=== PATIENT | female | born 1940 | race Caucasian/White ===

== ENCOUNTER → 2016-07-23 | Day surgery (SDC) | payer MEDICARE ==
[~2016-07-23] MED LIST: ASPI81TA81 PO; BETH10TA2 PO; BUPIVACAINE HCL PF 0.5% 30 ML VIAL ONE; D 101000 PO; ESTR1TAB PO; LEXA20TA PO; LORA-392 PO; LOVA40TA PO; PRIL20TA2 PO; PROP60 PO; PROPOFOL 200 MG/20 ML AMP IV ONE; RANI150C PO; TRAM50TA PO; TRIAMCINOLONE ACETONIDE 40 MG/ML VIAL I-ARTICULR ONE; VITA500T49 PO
--- NOTE | 2016-07-24 23:05 | M6 ---
cc: ROSARIO SANDERS M.D. DATE: 07/23/2016 DATE OF : 1940 PROCEDURE Fluoroscopically guided injection right cervical facet joints (right C2-3, C3-4, C4-5 and C5-6 facet joints). History and physical was completed and signed. Consent was signed. Procedure site was marked. Medications were listed and reconciled. Pain score was recorded. Allergies were noted. Time out was taken. Fluoroscopy time was recorded where applicable. Sedation was administered or directed by Dr. Sanders. The patient was given oxygen. The patient was monitored by a registered nurse. Total procedure time was greater than 15 minutes. PROCEDURE NOTE: IV was started, blood pressure cuff, pulse oximeter and EKG were applied. The patient was placed in the prone position on a Jonathan table sedated with small amounts of propofol titrated to effect. Vital signs were monitored and remained stable throughout the procedure. The cervical area was prepped with alcohol and 10% Betadine solution and draped with sterile drapes. Fluoroscopy was used to visualize the right cervical facet joints at C2-3, C3-4, C4-5 and C5-6. Separate sterile 3-1/2 inch 25-gauge spinal needles were advanced into these joints under fluoroscopic guidance. At each location the patient was given 1 mL of Marcaine 0.5% which contained 10 mg of Kenalog. Following the procedure the patient was taken to the recovery room with stable vital signs neurologically intact. She will be evaluated immediately and with followup to determine if she has a subjective decrease in her usual pain and a corresponding objective increase in her functional capabilities. W. MD PAUL Perez/ALEXANDRE /8:21 AM /10:58 PM
== END | disposition home or self-care (01) ==
LOC: PHSDC 06:32
PROVIDERS: ATTEND Pain Medicine Interventional Pain Medicine
DX: M54.12 Radiculopathy, cervical region (principal)
CPT/HCPCS: 64490; 64491; 64492; 99152; J3301

== ENCOUNTER 2016-08-27 09:46 | Day surgery (SDC) | payer MEDICARE ==
[~2016-08-27] VITALS: Ht 170.2 cm; Wt 75.0 kg
[2016-08-27] VITALS (7 sets, daily range): BP systolic 130–141; BP diastolic 56–71; PULSE 68–76; RESP 15–20; TEMP 97.8–98.2; O2SAT 91–96
[~2016-08-27 09:46] MED LIST changes: -BUPIVACAINE HCL PF 0.5% 30 ML VIAL ONE; -PROPOFOL 200 MG/20 ML AMP IV ONE; -TRIAMCINOLONE ACETONIDE 40 MG/ML VIAL I-ARTICULR ONE
[2016-08-27] MEDS ORDERED: SODIUM CHLOR 0.9% 1000 ML IV SCH (10:00)
[2016-08-27] MEDS ORDERED: ONDANSETRON HCL 4 MG/2 ML VIAL IV PUSH ONE (12:45)
[2016-08-27] MEDS ORDERED: LORazepam 2 MG/ML VIAL ONE (12:48)
[2016-08-27] MEDS ORDERED: fentaNYL CITRATE 250 MCG/5 ML AMP ONE (12:48)
[2016-08-27] MEDS ORDERED: LIDOCAINE 1%/EPINEPHrine 1:100,000 SOLN 20 ML VIAL ONE (12:50)
[2016-08-27] MEDS ORDERED: MORPHINE SULFATE 8 MG/ML INJ IV PUSH ONE (13:00)
--- NOTE | 2016-08-27 13:33 | PD.RAD ---
Post Procedure Progress Note Pre Procedure Diagnosis: (1) Mass of sacrum Post Procedure Diagnosis: (1) Mass of sacrum Procedure Date: Aug 27, 2016 Supervising Radiologist: Davon Avitia Estimated blood loss: 2cc Anesthesia: Local, Conscious Sedation Plan of Activity Patient to Unit: ROPU Patient Condition: Good Additional Comments: Successful CT guided biopsy of the right sacral mass. Full dictated report to follow See PACS Report for procedural detail/treatment Davon Avitia MD Aug 27, 2016 13:33
--- NOTE | 2016-08-28 10:55 | RADRPT ---
EXAM DATE/TIME: 08/27/2016 13:14 [facility] COMPARISON: CT HIP RIGHT W/O CONTRAST, September 06, 2015, 1:41. INDICATIONS : Right sacral mass. SEDATION TIME: 10 minutes BIOPSY SITE: Right sacrum MEDICATION(S): 1.) 150 mcg fentanyl (Sublimaze) IV 2.) 0.5 mg lorazepam (Ativan) IV DEVICE(S): 1.) 18 gauge Temno core biopsy needle MEDICAL HISTORY : Parkinson's. Diverticulosis. brain mass SURGICAL HISTORY : Hysterectomy. Cholecystectomy. Appendectomy. ENCOUNTER: Initial ACUITY: 1 day PAIN SCORE: 7/10 LOCATION: Bilateral sacrum A total of one core specimen(s) were obtained and sent to the laboratory for pathologic evaluation. PROCEDURE: 1. CT guided bone deep biopsy. 2. Conscious sedation with continuous EKG and oximetry monitoring. 3. EKG and oximetry remained stable throughout the procedure. Prior to the procedure informed consent was obtained. Any appropriate prior imaging studies were rev iewed. Using automated exposure control and adjustment of the mA and/or kV according to patient size, radiat ion dose was kept as low as reasonably achievable to obtain optimal diagnostic quality images. DICOM format image data is available electronically for review and comparison. The site was prepped in a sterile fashion. Full sterile technique was used, including cap, mask, francisco rile gloves and gown and a large sterile sheet. Hand hygiene and 2% chlorhexidine and/or betadine/al cohol prep was utilized per protocol for cutaneous antisepsis. The skin and subcutaneous tissues wer e infiltrated with local anesthetic solution. With CT guidance the previously identified target was localized. Biopsy was performed using an 18 gau ge Temno biopsy needle as above. Adequate hemostasis was obtained with compression at the puncture s ite. Follow-up CT scan reveals no hemorrhage. The patient tolerated the procedure well and there were no complications. The patient was returned to the Radiology Outpatient Unit in stable condition. CONCLUSION: Uncomplicated CT guided biopsy of a right sacral mass. Davon Avitia MD on August 28, 2016 at 10:53 Board Certified Radiologist. This report was verified electronically.
== END 2016-08-27 16:05 | disposition home or self-care (01) ==
LOC: HRAD 09:46 → HRIP 09:47 → HRAD 16:05
PROVIDERS: ATTEND Internal Medicine Gastroenterology
DX: C41.4 Malignant neoplasm of pelvic bones, sacrum and coccyx (principal); K21.9 Gastro-esophageal reflux disease without esophagitis; G20 Parkinson's disease
CPT/HCPCS: 20225; 77012; 88305; 88341; 88342; J2060; J2405; J3010; J7030

== ENCOUNTER 2016-08-29 07:45 | Emergency (ER) | payer MEDICARE ==
[~2016-08-29 07:45] MED LIST changes: -BETH10TA2 PO; -RANI150C PO
[2016-08-29 07:47] VITALS: BP 136/78; PULSE 74; RESP 20; TEMP 97.8; O2SAT 97
[2016-08-29 08:19] VITALS: BP 146/69; PULSE 70; RESP 19; O2SAT 96
[2016-08-29] MEDS ORDERED: oxyCODONE/ACETAMINOPHEN 5 MG/325 MG TAB PO ONE (08:30)
[2016-08-29] MEDS ORDERED: SODIUM CHLORIDE 0.9% FLUSH 10 ML FLUSH IVF PRN (08:30)
[2016-08-29] MEDS ORDERED: ONDANSETRON HCL 4 MG/2 ML VIAL IV PUSH ONE (08:30)
[2016-08-29 08:37] VITALS: BP 146/69; PULSE 71; RESP 18; O2SAT 96
[2016-08-29] MEDS ORDERED: CARB25TA9 PO (08:37)
--- NOTE | 2016-08-29 08:40 | PD ---
HPI Chief Complaint: Pain: Acute or Chronic Time Seen by Provider: 08:00 Travel History International Travel<30 days: No Contact w/Intl Traveler<30days: No Traveled to known affect area: No History of Present Illness HPI Patient 76-year-old female presents emergency department left-sided chest pain. Patient states a few days ago she began having shingles outbreak on the left side of her chest wall, she went to her primary care physician who prescribed her antivirals. She's been taking Ultram as needed for pain. She states then the pain change and felt like she was having a heart attack last night. Denies any shortness of breath abdominal pain nausea or vomiting. States she doesn't have a heart history. Denies any fevers. States the pain is sharp overlying the rash without radiation. PFSH Past Medical History Arthritis: Yes Asthma: Yes Atrial Fibrillation: Yes Blood Disorders: Yes (PRIOR TO HYSTERECTOMY, PT WOULD NEED TRANFUSIONS DURING MENSTRAL CYCLE) Anxiety: Yes Heart Rhythm Problems: No Cancer: Yes (SKIN/ BREAST BIOPSY X3) Cardiovascular Problems: Yes High Cholesterol: Yes Chest Pain: No Congestive Heart Failure: No Cerebrovascular Accident: Yes Diabetes: No Diminished Hearing: No Endocrine: No Gastrointestinal Disorders: Yes (APPY, ALLEN., GERD , GASTROPARESIS) GERD: Yes (GERD) Genitourinary: Yes (SURGICAL REPAIR CYSTOCELE) Headaches: Yes Hepatitis: No Hiatal Hernia: Yes Hypertension: Yes Immune Disorder: No Implanted Vascular Access Dvce: Yes Kidney Stones: Yes Medical other: Yes (HX SHINGLES; TREMORS ) Musculoskeletal: Yes (ARTHRITIS, BAD BACK (PAIN INJ IN SPINE)) Neurologic: Yes (TREMORS, CEREBRAL ANEURYSM, PARKINSONS) Psychiatric: No Respiratory: Yes (CHRONIC BRONCHITIS, PLEURAL EFFUSION ) Immunizations Current: Yes Sleep Apnea: Yes Thyroid Disease: No Tetanus Vaccination: Unknown Menopausal: Yes : 0 Tubal Ligation: Yes Past Surgical History Abdominal Surgery: Yes (EXP. LAP., APPEND., ALLEN, ) AICD: No Appendectomy: Yes Arteriovenous Shunt: No Body Medical Devices: 18 SCREWS FACIAL -LAFORTE PROCEDURE Cholecystectomy: Yes Ear Surgery: Yes (BILAT. CAT. SX) Endocrine Surgery: No Eye Surgery: Yes (CATARACTS SX BILAT) Genitourinary Surgery: Yes (CYSTOCELE X 3, TUBAL LIGATION HYSTER) Gynecologic Surgery: Yes (TOTAL HYSTERECTOMY W/ BILAT OOPHORECTOMY) Hysterectomy: Yes Insulin Pump: No Joint Replacement: Yes (RIGHT KNEE) Neurologic Surgery: Yes (R PARIETAL CRAINECTOMY WITH ANEURYSM CLIPPING 12/11/13 ) Oral Surgery: Yes (TMJ SX) Pacemaker: No Thoracic Surgery: Yes (BREAST BX X3) Other Surgery: Yes Social History Alcohol Use: No Tobacco Use: No Substance Use: No Allergies-Medications (Allergen,Severity, Reaction): Coded Allergies: Codeine (Verified Allergy, Severe, WAKEFULNESS, 08/29/16) INTERMEDIATE REACTION Levaquin (Verified Allergy, Severe, NAUSEA/VOMITING, 08/29/16) INTERMEDIATE REACTION Nonsteroidal Anti-Inflammatory Agts (Verified Allergy, Severe, NAUSEA/ VOMITING, 08/29/16) INTERMEDIATE REACTION Sulfa (Verified Allergy, Severe, NAUSEA/VOMITING, 08/29/16) MAKES PT HYPERACTIVE - INTERMEDIATE REACTION Valium (Verified Allergy, Severe, HYPER, 08/29/16) INTERMEDIATE REACTION Versed (Verified Allergy, Severe, Restlessness, 08/29/16) INTERMEDIATE REACTION Vicodin (Verified Allergy, Severe, 08/29/16) NAUSEA AND VOMITING ; INTERMEDIATE REACTION Adhesives (Verified Adverse Reaction, Intermediate, HIVES, 08/29/16) Uncoded Allergies: CLOTH TAPE (Allergy, Intermediate, Rash AND BLISTERS, 03/12/07) Reported Meds & Prescriptions Reported Meds & Active Scripts Active Percocet (Oxycodone-Acetaminophen) 5-325 mg Tab 1 Tab PO Q6H PRN Reported Carbidopa-Levodopa 25-100 Mg Tab 1 Tab PO Q8HR D 1000 (Cholecalciferol) 1,000 Unit Cap 1 Cap PO BID Aspir-81 (Aspirin) 81 Mg Tabdr 1 Tab PO DAILY Prilosec (Omeprazole Magnesium) 20 Mg Tab 1 Tab PO BID Tramadol (Tramadol HCl) 50 Mg Tab 50 Mg PO Q4H PRN Vitamin B12 (Cyanocobalamin) 500 Mcg Tab 1,000 Mcg PO DAILY Inderal LA 24 HR (Propranolol HCl) 60 Mg Cap 60 Mg PO TID Lexapro (Escitalopram Oxalate) 20 Mg Tab 20 Mg PO DAILY Estradiol 1 Mg Tab 1 Mg PO DAILY Ativan (Lorazepam) 0.5 Mg Tab 0.5 Mg PO DAILY PRN Lovastatin 40 Mg Tab 40 Mg PO BID Review of Systems Except as stated in HPI: all other systems reviewed are Neg Physical Exam Narrative GENERAL: Well-developed well-nourished, somewhat flat affect consistent with Parkinson's disease. Pill-rolling tremor consistent with Parkinson's disease. SKIN: Patient has left sided rash scabbed most prominent on the posterior aspect approximately T6 level. Highly consistent with active shingles. Does wrap around her axilla there is some scattered lesions under her breast. No evidence of superimposed bacterial infection. HEAD: Atraumatic. Normocephalic. EYES: Pupils equal and round. No scleral icterus. No injection or drainage. ENT: No nasal bleeding or discharge. Mucous membranes pink and moist. NECK: Trachea midline. No JVD. CARDIOVASCULAR: Regular rate and rhythm. No murmur appreciated. 2+ bilateral equal pulses in all 4 extremities. RESPIRATORY: No accessory muscle use. Clear to auscultation. Breath sounds equal bilaterally. GASTROINTESTINAL: Abdomen soft, non-tender, nondistended. Hepatic and splenic margins not palpable. MUSCULOSKELETAL: No obvious deformities. No clubbing. No cyanosis. No edema. NEUROLOGICAL: Awake and alert. No obvious cranial nerve deficits. Motor grossly within normal limits. Normal speech. PSYCHIATRIC: Appropriate mood and affect; insight and judgment normal. Data Data Last Documented VS Vital Signs Date Time Temp Pulse Resp B/P Pulse Ox O2 Delivery O2 Flow Rate FiO2 08/29/16 12:09 73 18 138/65 95 08/29/16 11:19 Nasal Cannula 2 08/29/16 07:47 97.8 Orders Electrocardiogram (08/29/16 ) Basic Metabolic Panel (Bmp) (08/29/16 08:28) Ckmb (Isoenzyme) Profile (08/29/16 08:28) Complete Blood Count With Diff (08/29/16 08:28) Magnesium (Mg) (08/29/16 08:28) Prothrombin Time / Inr (Pt) (08/29/16 08:28) Act Partial Throm Time (Ptt) (08/29/16 08:28) Troponin I (08/29/16 08:28) Chest, Single Ap (08/29/16 08:28) Ecg Monitoring (08/29/16 08:28) Iv Access Insert/Monitor (08/29/16 08:28) Oximetry (08/29/16 08:28) Oxygen Administration (08/29/16 08:28) Sodium Chloride 0.9% Flush (Ns Flush) (08/29/16 08:30) Oxycodone-Acetamin 5-325 Mg (Percocet (08/29/16 08:30) Ondansetron Inj (Zofran Inj) (08/29/16 08:30) Labs Laboratory Tests Test 08/29/16 08:45 White Blood Count 4.5 TH/MM3 Red Blood Count 3.34 MIL/MM3 Hemoglobin 10.4 GM/DL Hematocrit 31.1 % Mean Corpuscular Volume 93.2 FL Mean Corpuscular Hemoglobin 31.1 PG Mean Corpuscular Hemoglobin 33.3 % Concent Red Cell Distribution Width 16.0 % Platelet Count 139 TH/MM3 Mean Platelet Volume 7.3 FL Neutrophils (%) (Auto) 50.0 % Lymphocytes (%) (Auto) 38.2 % Monocytes (%) (Auto) 10.7 % Eosinophils (%) (Auto) 0.8 % Basophils (%) (Auto) 0.3 % Neutrophils # (Auto) 2.2 TH/MM3 Lymphocytes # (Auto) 1.7 TH/MM3 Monocytes # (Auto) 0.5 TH/MM3 Eosinophils # (Auto) 0.0 TH/MM3 Basophils # (Auto) 0.0 TH/MM3 CBC Comment DIFF FINAL Differential Comment Prothrombin Time 10.5 SEC Prothromb Time International 1.0 RATIO Ratio Activated Partial 22.7 SEC Thromboplast Time Sodium Level 136 MEQ/L Potassium Level 4.0 MEQ/L Chloride Level 106 MEQ/L Carbon Dioxide Level 24.6 MEQ/L Anion Gap 5 MEQ/L Blood Urea Nitrogen 17 MG/DL Creatinine 0.86 MG/DL Estimat Glomerular Filtration 64 ML/MIN Rate Random Glucose 98 MG/DL Calcium Level 9.0 MG/DL Magnesium Level 2.0 MG/DL Total Creatine Kinase 53 U/L Troponin I LESS THAN 0.02 NG/ML MDM Medical Decision Making Medical Screen Exam Complete: Yes Emergency Medical Condition: Yes Interpretation(s) EKG shows sinus rhythm with baseline artifact secondary to tremor, normal axis normal R-wave progression. Intervals within normal limits. Finer ST segment changes may not be seen secondary to artifact however there is no obvious ST segment changes. Appears to be a normal EKG. Differential Diagnosis ACS and unlikely, ME seems unlikely, pneumonia seems unlikely, chest wall pain secondary to shingles. Narrative Course Patient was roomed in the emergency department, she was given pain medicine began to feel quite a lot better. Initial workup including EKG CBC CMP and troponin are negative, chest x-ray negative. Discussed with the patient that I think would be unusual for her to have a deferring cause of her chest pain other than her shingles. I offered her observation in the hospital for chest pain workup but suggested that she could also follow up with her primary care physician. She opts for the latter at this time. I will provide her with pain medicine, states that if she began having more severe symptoms that she return to the emergency department further workup. Diagnosis Primary Impression: Chest pain Qualified Code: R07.9 - Chest pain, unspecified type Additional Instructions: Call your primary care physician today and let them know you were in the emergency department. You're biopsy results have not yet returned, follow-up with her primary care physician for these. Scripts Oxycodone-Acetaminophen (Percocet)5-325 mg Tab1 Tab PO Q6H PRN (PAIN) #10 TAB Ref 0 Prov:Romero Mcpherson MD 08/29/16 Disposition: 01 DISCHARGE HOME Condition: Stable Romero Mcpherson MD Aug 29, 2016 08:40
--- NOTE | 2016-08-29 09:10 | RADRPT ---
EXAM DATE/TIME: 08/29/2016 08:48 [facility] COMPARISON: CHEST SINGLE AP, October 18, 2014, 5:33. INDICATIONS : Chest pains x3 days. MEDICAL HISTORY : Stroke. Aneurysm, intracranial. SURGICAL HISTORY : None. ENCOUNTER: Initial ACUITY: 3 days PAIN SCORE: 9/10 LOCATION: Bilateral chest FINDINGS: The lungs are clear without infiltrate, nodule, or mass. There is no appreciable pleural effusion fo r technique. Heart and mediastinum are unremarkable. There are atherosclerotic calcifications of the aorta due to chronic atherosclerotic disease. CONCLUSION: No acute cardiopulmonary disease. Mona Carlos MD on August 29, 2016 at 9:08 Board Certified Radiologist. This report was verified electronically.
[2016-08-29 09:29] LABS: AUTOMATED NEUTROPHIL # 2.2 TH/MM3 (1.8-7.7); BASOPHIL % 0.3 % (0.0-2.0); EOSINOPHIL % 0.8 % (0.0-4.0); HEMATOCRIT 31.1 % (35.0-46.0); HEMO FLAGS DIFF FINAL; LYMPH % 38.2 % (9.0-44.0); LYMPHOCYTE # 1.7 TH/MM3 (1.0-4.8); MEAN CELL VOLUME 93.2 FL (80.0-100.0); MEAN CORPUSCULAR HEMOGLOBIN 31.1 PG (27.0-34.0); MEAN CORPUSCULAR HGB CONC 33.3 % (32.0-36.0); MONO % 10.7 % (0.0-8.0); PLATELET COUNT 139 TH/MM3 (150-450); RED BLOOD COUNT 3.34 MIL/MM3 (4.00-5.30); WHITE BLOOD COUNT 4.5 TH/MM3 (4.0-11.0)
[2016-08-29 09:35] LABS: APTT (PATIENT) 22.7 SEC (24.3-30.1); PROTHROMBIN TIME - PATIENT 10.5 SEC (9.8-11.6)
[2016-08-29 09:56] LABS: ANION GAP 5 MEQ/L (5-15); BICARBONATE 24.6 MEQ/L (21.0-32.0); BLOOD UREA NITROGEN 17 MG/DL (7-18); CHLORIDE 106 MEQ/L (98-107); GLOMERULAR FILTRATION RATE 64 ML/MIN (>89); SODIUM (NA) 136 MEQ/L (136-145)
[2016-08-29 10:06] LABS: CREATINE KINASE 53 U/L (26-192)
[2016-08-29 11:19] VITALS: BP 131/68; PULSE 72; RESP 18; O2SAT 98
[2016-08-29] MEDS ORDERED: PERC5TAB12 PO (11:41)
[2016-08-29 12:09] VITALS: BP 138/65
--- NOTE | 2016-08-29 16:48 | EKG ---
Date Performed: 08/29/2016 Time Performed: 08:16:44 PTAGE: 76 years EKG: Sinus rhythm POSSIBLE RIGHT VENTRICULAR CONDUCTION DELAY BORDERLINE ECG PREVIOUS TRACING : 10/18/2014 05.43 Compared to prior tracing no significant change DOCTOR: Ana Ann Interpretating Date/Time 08/29/2016 16:46:36
== END 2016-08-29 12:28 | disposition home or self-care (01) ==
LOC: NEPE 07:45
DX: R07.9 Chest pain, unspecified (principal); B02.9 Zoster without complications; J45.909 Unspecified asthma, uncomplicated; I48.91 Unspecified atrial fibrillation; F41.9 Anxiety disorder, unspecified; E78.00 Pure hypercholesterolemia, unspecified; K21.9 Gastro-esophageal reflux disease without esophagitis; I10 Essential (primary) hypertension; Z86.73 Personal history of transient ischemic attack (TIA), and cerebral infarction without residual deficits
CPT/HCPCS: 71010; 80048; 82550; 83735; 84484; 85025; 85610; 85730; 93005; 96374; 99285; J2405

== ENCOUNTER 2016-09-21 07:40 | Day surgery (SDC) | payer MEDICARE ==
[~2016-09-21] VITALS: Ht 170.2 cm; Wt 71.8 kg
[~2016-09-21 07:40] MED LIST changes: +CARB25TA9 PO; +PERC5TAB12 PO
[2016-09-21] MEDS ORDERED: SODIUM CHLOR 0.9% 1000 ML IV SCH (08:00)
[2016-09-21 08:11] VITALS: BP 147/76; PULSE 67; RESP 18; TEMP 98.1; O2SAT 97
[2016-09-21 08:20] LABS: AUTOMATED NEUTROPHIL # 3.4 TH/MM3 (1.8-7.7); BASOPHIL % 0.3 % (0.0-2.0); EOSINOPHIL # 0.1 TH/MM3 (0-0.4); EOSINOPHIL % 1.2 % (0.0-4.0); HEMO FLAGS DIFF FINAL; LYMPH % 36.8 % (9.0-44.0); LYMPHOCYTE # 2.2 TH/MM3 (1.0-4.8); MEAN CELL VOLUME 96.8 FL (80.0-100.0); MEAN CORPUSCULAR HEMOGLOBIN 31.8 PG (27.0-34.0); MEAN CORPUSCULAR HGB CONC 32.8 % (32.0-36.0); MONO % 5.5 % (0.0-8.0); NEUT % 56.2 % (16.0-70.0); PLATELET COUNT 241 TH/MM3 (150-450); RED BLOOD COUNT 3.21 MIL/MM3 (4.00-5.30); RED CELL DISTRIBUTION WIDTH 17.3 % (11.6-17.2)
[2016-09-21] MEDS ORDERED: CARB25TA9 PO (08:22)
[2016-09-21] MEDS ORDERED: LIDOCAINE 1%/EPINEPHrine 1:100,000 SOLN 20 ML VIAL ONE (08:28)
[2016-09-21 08:31] LABS: APTT (PATIENT) 23.9 SEC (24.3-30.1); PROTHROMBIN TIME - PATIENT 10.8 SEC (9.8-11.6)
[2016-09-21] MEDS ORDERED: fentaNYL CITRATE 250 MCG/5 ML AMP ONE (09:07)
[2016-09-21] MEDS ORDERED: LORazepam 2 MG/ML VIAL ONE (09:08)
--- NOTE | 2016-09-21 10:13 | PD.RAD ---
Post CT Procedure Prog Note Pre Procedure Diagnosis: (1) Plasmocytoma (2) Anemia Post Procedure Diagnosis: (1) Anemia (2) Plasmocytoma Procedure Date: Sep 21, 2016 Supervising Radiologist: Antoni Rutledge Estimated blood loss: 2cc Anesthesia: Conscious Sedation Plan of Activity Patient to Unit: ROPU Patient Condition: Good See PACS Report for procedural detail/treatment Biopsy Imaging Guidance: CT Side: Left Biopsy Procedure: Bone Marrow Site: right posterior iliac bone. Specimen: Core Biopsy Plan to ROPU then discharge. Antoni Rutledge MD Sep 21, 2016 10:13
[2016-09-21] MEDS ORDERED: ONDANSETRON HCL 4 MG/2 ML VIAL IV PUSH ONE (10:15)
[2016-09-21 10:20] VITALS: BP 132/70; PULSE 71; RESP 16; TEMP 97.5; O2SAT 92
[2016-09-21 10:35] VITALS: BP 129/63; PULSE 75; RESP 16; O2SAT 95
[2016-09-21 11:05] VITALS: BP 113/57; PULSE 66; RESP 16; O2SAT 96
--- NOTE | 2016-09-21 11:29 | RADRPT ---
EXAM DATE/TIME: 09/21/2016 09:25 [facility] COMPARISON: No previous studies available for comparison. INDICATIONS : Anemia. BIOPSY SITE: Left iliac MEDICATION(S): 1.) 200 mcg fentanyl (Sublimaze) IV 2.) 2 mg lorazepam (Ativan) IV DEVICE(S): 1.) 11 gauge Bone marrow biopsy needle MEDICAL HISTORY : Anemia, plasmacytic neoplasm SURGICAL HISTORY : Appendectomy. Cholecystectomy. Hysterectomy. ENCOUNTER: Initial ACUITY: 1 day PAIN SCORE: 0/10 LOCATION: Left pelvis A total of one core specimen(s) were obtained and sent to the laboratory for pathologic evaluation. PROCEDURE: 1. CT guided bone marrow biopsy. Prior to the procedure informed consent was obtained. Any appropriate prior imaging studies were rev iewed. Using automated exposure control and adjustment of the mA and/or kV according to patient size , radiation dose was kept as low as reasonably achievable to obtain optimal diagnostic quality images . DICOM format image data is available electronically for review and comparison. The site was prepped in a sterile fashion. Full sterile technique was used, including cap, mask, francisco rile gloves and gown and a large sterile sheet. Hand hygiene and 2% chlorhexidine and/or betadine/al cohol prep was utilized per protocol for cutaneous antisepsis. The skin and subcutaneous tissues wer e infiltrated with local anesthetic solution. With CT guidance the previously identified target was localized. Biopsy was performed using the presc ribed needle as above. Following biopsy marrow aspiration was performed with repeat puncture. Adequa te hemostasis was obtained with compression at the puncture site. Conscious sedation was performed with the prescribed dosages and duration as above in the presence of an independent trained radiology nurse to assist in the monitoring of the patient. EKG and oximetry remained stable throughout the procedure. The patient tolerated the procedure well and there were no complications. The patient was sent to Radiology Outpatient Unit in stable condition. CONCLUSION: 1. Uncomplicated CT guided bone marrow aspirate. 2. Uncomplicated CT guided bone marrow biopsy. Antoni Rutledge MD on September 21, 2016 at 11:27 Board Certified Radiologist. This report was verified electronically.
[2016-09-21 11:35] VITALS: BP 109/52; PULSE 67; RESP 16; O2SAT 97
[2016-09-21 11:37] LABS: BONE MARROW PROCESSING COMPLETE; IRON STAIN DONE; JENNER GIEMSA STAIN DONE
== END 2016-09-21 12:00 | disposition home or self-care (01) ==
LOC: HRAD 07:40 → HRIP 07:41 → HRAD 12:00
PROVIDERS: ATTEND Internal Medicine Hematology
DX: C90.00 Multiple myeloma not having achieved remission (principal); C90.30 Solitary plasmacytoma not having achieved remission; D64.9 Anemia, unspecified
CPT/HCPCS: 38221; 77012; 85025; 85097; 85610; 85730; 88305; 88311; 88313; C1830; G0364; J2060; J3010; J7030

== ENCOUNTER 2018-02-21 14:01 | Inpatient (IN) ==
[2018-02-21] MEDS ORDERED: Sod Chloride 0.9% Inj 1,000 ML IV.SIG SCH (15:00)
[2018-02-21 15:15] LABS: Baso % (Auto) 0.2 % (0.0-2.0); Eos % (Auto) 0.4 % (0.0-4.0); Hematocrit 30.6 % (35.0-46.0); Hemoglobin 10.4 gm/dL (11.6-15.3); Lymph # (Auto) 0.1 th/mm3 (1.0-4.8); Lymph % (Auto) 10.4 % (9.0-44.0); Mean Corpuscular HGB Conc 34.1 % (32.0-36.0); Mean Corpuscular Hemoglobin 32.8 pg (27.0-34.0); Mean Corpuscular Volume 96.2 fL (80.0-100.0); Mean Platelet Volume 7.7 fL (7.0-11.0); Mono # (Auto) 0.1 th/mm3 (0.0-0.9); Mono % (Auto) 11.3 % (0.0-8.0); Neut # (Auto) 0.8 th/mm3 (1.8-7.7); Neut % (Auto) 77.7 % (16.0-70.0); Platelet Count 73 th/mm3 (150-450); Red Blood Count 3.18 mil/mm3 (4.00-5.30); Red Cell Distribution Width 17.2 % (11.6-17.2); White Blood Count 1.1 th/mm3 (4.0-11.0)
--- NOTE | 2018-02-21 15:18 | ED ---
HPI General Chief complaint: Weakness Stated complaint: Weakness/Headache Complaint Time Seen by Provider: 02/21/18 14:43 Source: patient and EMS Mode of arrival: EMS Limitations: no limitations History of Present Illness HPI narrative: Patient is a 77-year-old female presenting to the [facility] department for evaluation of weakness. Patient states she is been feeling this way for at least 24 hours. Per EMS patient was laying on her bed, she was unable to get up on her own. She was able to stand and walk a few steps with them but they were holding her up. They stated that on their arrival she was clammy and reporting chills, her temp at that time was 99.2. Patient is currently reporting a headache to the left temporal area that is been intermittent, she states the pain gets to be a 10 out of 10 and is throbbing. This is been ongoing for several days. Patient is also reporting left rib pain. She denies any falls. She states that she has been having to hold onto the lizarraga when she gets up. She normally ambulates without difficulty. Patient vomited when EMS stood her up, she reported feeling dizzy. She does report dry heaving a few times over the last few days. Patient has taken tramadol and Excedrin for the headache, this alleviates her symptoms. She has been tolerating food and fluids, she denies any chest pain, shortness of breath , dysuria, fevers. Patient has history of multiple myeloma, she received steroid injections to her lumbar spine through pain management. She has not had chemo in approximately 1 month. Patient currently lives alone, and a member of her taoism checks on her. Symptom onset was gradual, symptoms are moderate. Onset (ago): day(s) Location: head Radiation: non-radiation Severity: moderate Quality: stabbing Pain Consistency: intermittent Relieving factors: none Exacerbating factors: movement Associated symptoms: Reports diaphoresis, headaches, malaise and weakness Treatments prior to arrival: Reports NSAID and other (tramadol) Related Data Home Medications Medication Instructions Recorded Confirmed acyclovir 400 mg PO BID 01/21/18 02/21/18 aspirin [Adult Low Dose Aspirin] 81 mg PO DAILY 01/21/18 02/21/18 calcium carbonate [Calcium 600] 600 mg PO DAILY 01/21/18 02/21/18 cyanocobalamin (vitamin B-12) 2,000 mcg PO DAILY 01/21/18 02/21/18 [Vitamin B-12] escitalopram oxalate [Lexapro] 20 mg PO DAILY 01/21/18 02/21/18 estradiol 1 mg PO DAILY 01/21/18 02/21/18 furosemide 20 mg PO DAILY 01/21/18 02/21/18 gabapentin 100 mg PO BID 01/21/18 02/21/18 hydrocodone-acetaminophen [Lewis] 1 - 2 tab PO Q6H PRN 01/21/18 02/21/18 lenalidomide [Revlimid] 5 mg PO DAILY 01/21/18 02/21/18 lorazepam 0.5 mg PO DAILY 01/21/18 02/21/18 lovastatin 40 mg PO BID 01/21/18 02/21/18 omeprazole 20 mg PO DAILY 01/21/18 02/21/18 potassium chloride [Klor-Con M20] 20 meq PO DAILY 01/21/18 02/21/18 prochlorperazine maleate 10 mg PO TID 01/21/18 02/21/18 propranolol [Inderal LA] 40 mg PO DAILY 01/21/18 02/21/18 tramadol 50 mg PO TID PRN 01/21/18 02/21/18 lactulose 10 g PO QID 02/21/18 02/21/18 pramipexole 0.125 mg PO TID 02/21/18 02/21/18 Allergies Allergy/AdvReac Type Severity Reaction Status Date / Time acetaminophen Allergy Severe NONE Verified 02/04/18 09:46 codeine Allergy Severe WAKEFULNESS Verified 02/04/18 09:46 diazepam Allergy Severe HYPER Verified 02/04/18 09:46 diclofenac Allergy Severe NAUSEA/VOMI Verified 02/04/18 09:46 TING etodolac Allergy Severe NAUSEA/VOMI Verified 02/04/18 09:46 TING flurbiprofen Allergy Severe NAUSEA/VOMI Verified 02/04/18 09:46 TING hydrocodone Allergy Severe Anxiety Verified 02/04/18 09:46 ibuprofen Allergy Severe NAUSEA/VOMI Verified 02/04/18 09:46 TING indomethacin Allergy Severe NAUSEA/VOMI Verified 02/04/18 09:46 TING ketoprofen Allergy Severe NAUSEA/VOMI Verified 02/04/18 09:46 TING ketorolac Allergy Severe NAUSEA/VOMI Verified 02/04/18 09:46 TING levofloxacin Allergy Severe NAUSEA/VOMI Verified 02/04/18 09:46 TING midazolam Allergy Severe Restlessnes Verified 02/04/18 09:46 s naproxen Allergy Severe NAUSEA/VOMI Verified 02/04/18 09:46 TING oxaprozin Allergy Severe NAUSEA/VOMI Verified 02/04/18 09:46 TING Sulfa (Sulfonamide Allergy Severe NAUSEA/VOMI Verified 02/04/18 09:46 Antibiotics) TING adhesive AdvReac Intermediate HIVES Verified 02/04/18 09:46 CLOTH TAPE Allergy Intermediate Rash AND Uncoded 02/04/18 09:46 BLISTERS Review of Systems ROS: all other systems reviewed are negative PMFSH History History Provided By: Patient Medical History Medical History Brain aneurysm (Acute) Multiple myeloma (Acute) Parkinsons (Acute) Stroke (Acute) Social History Social History Substance History: No History of Abuse Second Hand Smoke Exposure: No Smoking Status: Never smoker How Often Do You Have a Drink Containing Alcohol: Never Recent Travel in [facility] within the Last 8 Weeks: No Recent Out of Country Travel within the Last 8 Weeks: No Exam Narrative Exam Narrative: GENERAL: Well-developed, well-nourished, alert elderly female. Presenting in no acute distress. SKIN: Focused skin assessment warm/dry. HEAD: Atraumatic. Normocephalic. EYES: Pupils equal and round. No scleral icterus. No injection or drainage. ENT: No nasal bleeding or discharge. Mucous membranes pink and moist. NECK: Trachea midline. No JVD. CARDIOVASCULAR: Tachycardic. No murmur appreciated. RESPIRATORY: No accessory muscle use. Clear to auscultation. Breath sounds equal bilaterally. GASTROINTESTINAL: Abdomen soft, mildly tender to left and right lower quadrants. Nondistended. Hepatic and splenic margins not palpable. Positive bowel sounds, no rebound, no guarding. MUSCULOSKELETAL: No obvious deformities. No clubbing. No cyanosis. No edema. Tenderness to palpation over lower lumbar spine. NEUROLOGICAL: Awake and alert. No obvious cranial nerve deficits. Motor grossly within normal limits. Normal speech. Essential tremors PSYCHIATRIC: Appropriate mood and affect; insight and judgment normal. Course Initial Documented Vital Signs Temperature 99.1 F 02/21/18 14:46 Pulse Rate 96 H 02/21/18 14:46 Respiratory Rate 18 02/21/18 14:46 Blood Pressure 132/60 02/21/18 14:46 Pulse Oximetry 94 L 02/21/18 14:46 Last Documented Vital Signs Temperature 99.1 F 02/21/18 14:46 Pulse Rate 96 H 02/21/18 14:46 Respiratory Rate 18 02/21/18 14:46 Blood Pressure 132/60 02/21/18 14:46 Pulse Oximetry 96 02/21/18 14:49 Medical Decision Making MDM Narrative Medical decision making narrative: Patient presented for evaluation of generalized weakness. Sepsis workup initiated. Patient was mildly tachycardic on arrival. She will be given a liter of IV fluids, she was given IV acetaminophen. IV access was established, patient was placed on case monitor continuous pulse oximetry. CBC with white blood cell count of 1.1, platelets 73, bands 12. Neutropenia and thrombocytopenia are likely side effects of the Revlimid. Patient is on 21- day cycle with 1 week off, she last completed the 21-day cycle 5 days ago. Cardiac enzymes are negative however troponin was 0.04. Calcium 7.7, potassium 3.1, she was given oral replacement for this. Urinalysis is consistent with a urinary tract infection, patient was given Rocephin 2 g IV x1 dose. CT scan abdomen and pelvis shows right hydronephrosis, nonobstructing left ureteral calculi. Lactic acid is normal. Blood cultures are pending. Discussed with Dr. Bridges who accepted admission, patient will be admitted with weakness and UTI. Admit orders placed. Patient and caregiver advised on clinical findings and plan of care. Questions were answered. Patient is agreeable to stay. Medical Screen Exam Complete: Yes Emergency Medical Condition: Yes Differential Diagnosis Differential Diagnosis: UTI versus influenza versus metabolic abnormality versus cardiac arrhythmia versus CVA versus TIA versus other Medical Records Medical records reviewed: Yes I reviewed the patient's medical records. Lab Data Result diagrams: 02/21/18 14:50 02/21/18 14:50 Lab Results 02/21/18 02/21/18 02/21/18 Range/Units 14:50 14:50 14:50 WBC 1.1 L (4.0-11.0) th/mm3 RBC 3.18 L (4.00-5.30) mil/mm3 Hgb 10.4 L (11.6-15.3) gm/dL Hct 30.6 L (35.0-46.0) % MCV 96.2 (80.0-100.0) fL MCH 32.8 (27.0-34.0) pg MCHC 34.1 (32.0-36.0) % RDW 17.2 (11.6-17.2) % Plt Count 73 L (150-450) th/mm3 MPV 7.7 (7.0-11.0) fL Prelim Diff (Auto) Slide review pending Neut % (Auto) 77.7 H (16.0-70.0) % Lymph % (Auto) 10.4 (9.0-44.0) % [place] % (Auto) 11.3 H (0.0-8.0) % Eos % (Auto) 0.4 (0.0-4.0) % Baso % (Auto) 0.2 (0.0-2.0) % Neut # (Auto) 0.8 L (1.8-7.7) th/mm3 Lymph # (Auto) 0.1 L (1.0-4.8) th/mm3 [place] # (Auto) 0.1 (0.0-0.9) th/mm3 Eos # (Auto) 0.0 (0.0-0.4) th/mm3 Baso # (Auto) 0.0 (0.0-0.2) th/mm3 WBC Differential Manual diff final Seg Neuts % (Manual) 65 (16-70) % Band Neuts % (Manual) 12 H (0-6) % Lymphocytes % (Manual) 12 (9-44) % Monocytes % (Manual) 11 H (0-8) % Abs Neuts (Manual) 0.8 L (1.8-7.7) th/mm3 Differential Comment . Platelet Estimate Low L (Normal) Platelet Morphology Normal (Normal) Ovalocytes 1+ H (None) PT 10.2 (9.8-11.6) sec INR 1.0 Ratio APTT 26.1 (23.4-31.7) sec Sodium 139 (136-145) meq/L Potassium 3.1 L (3.5-5.1) meq/L Chloride 108 H (98-107) meq/L Carbon Dioxide 22.3 (21.0-32.0) meq/L Anion Gap 9 (5-15) meq/L BUN 21 H (7-18) mg/dL Creatinine 1.02 H (0.50-1.00) mg/dL Estimated GFR 53 L (>89) mL/min Random Glucose 125 H (74-106) mg/dL Lactic Acid (0.4-2.0) mmol/L Calcium 7.7 L (8.5-10.1) mg/dL Magnesium 2.0 (1.5-2.5) mg/dL Total Bilirubin 0.7 (0.2-1.0) mg/dL AST 32 (15-37) U/L ALT 28 (10-53) U/L Alkaline Phosphatase 56 (45-117) U/L Total Creatine Kinase 98 (26-192) U/L Troponin I 0.04 (0.02-0.05) ng/mL Total Protein 5.9 L (6.4-8.2) g/dL Albumin 2.4 L (3.4-5.0) g/dL Lipase 44 L (73-393) U/L Urine Color (Yellw/Straw) Urine Clarity (Clear) Urine pH (5.0-8.5) Ur Specific [place] (1.002-1.035) Urine Protein (Neg-Trace) mg/dL Urine Glucose (UA) (Negative) mg/dL Urine Ketones (Negative) mg/dL Urine Occult Blood (Negative) Urine Nitrate (Negative) Urine Bilirubin (Negative) Urine Urobilinogen (Less than 2) mg/dL Ur Leukocyte Esterase (Negative) Urine RBC (0-3) /hpf Urine WBC (0-5) /hpf Ur Squamous Epith Cells (0-5) /hpf Urine Bacteria (None) /hpf Hyaline Casts (0-3) /lpf Micro UA Comment Ur Microscopic Review Urine Culture Comments 02/21/18 02/21/18 Range/Units 14:50 16:15 WBC (4.0-11.0) th/mm3 RBC (4.00-5.30) mil/mm3 Hgb (11.6-15.3) gm/dL Hct (35.0-46.0) % MCV (80.0-100.0) fL MCH (27.0-34.0) pg MCHC (32.0-36.0) % RDW (11.6-17.2) % Plt Count (150-450) th/mm3 MPV (7.0-11.0) fL Prelim Diff (Auto) Neut % (Auto) (16.0-70.0) % Lymph % (Auto) (9.0-44.0) % [place] % (Auto) (0.0-8.0) % Eos % (Auto) (0.0-4.0) % Baso % (Auto) (0.0-2.0) % Neut # (Auto) (1.8-7.7) th/mm3 Lymph # (Auto) (1.0-4.8) th/mm3 [place] # (Auto) (0.0-0.9) th/mm3 Eos # (Auto) (0.0-0.4) th/mm3 Baso # (Auto) (0.0-0.2) th/mm3 WBC Differential Seg Neuts % (Manual) (16-70) % Band Neuts % (Manual) (0-6) % Lymphocytes % (Manual) (9-44) % Monocytes % (Manual) (0-8) % Abs Neuts (Manual) (1.8-7.7) th/mm3 Differential Comment Platelet Estimate (Normal) Platelet Morphology (Normal) Ovalocytes (None) PT (9.8-11.6) sec INR Ratio APTT (23.4-31.7) sec Sodium (136-145) meq/L Potassium (3.5-5.1) meq/L Chloride (98-107) meq/L Carbon Dioxide (21.0-32.0) meq/L Anion Gap (5-15) meq/L BUN (7-18) mg/dL Creatinine (0.50-1.00) mg/dL Estimated GFR (>89) mL/min Random Glucose (74-106) mg/dL Lactic Acid 1.4 (0.4-2.0) mmol/L Calcium (8.5-10.1) mg/dL Magnesium (1.5-2.5) mg/dL Total Bilirubin (0.2-1.0) mg/dL AST (15-37) U/L ALT (10-53) U/L Alkaline Phosphatase (45-117) U/L Total Creatine Kinase (26-192) U/L Troponin I (0.02-0.05) ng/mL Total Protein (6.4-8.2) g/dL Albumin (3.4-5.0) g/dL Lipase (73-393) U/L Urine Color Yellow (Yellw/Straw) Urine Clarity Cloudy H (Clear) Urine pH 5.0 (5.0-8.5) Ur Specific [place] 1.026 (1.002-1.035) Urine Protein 100 H (Neg-Trace) mg/dL Urine Glucose (UA) Negative (Negative) mg/dL Urine Ketones Trace H (Negative) mg/dL Urine Occult Blood Moderate H (Negative) Urine Nitrate Positive H (Negative) Urine Bilirubin Negative (Negative) Urine Urobilinogen Less than 2 (Less than 2) mg/dL Ur Leukocyte Esterase Large H (Negative) Urine RBC 10 H (0-3) /hpf Urine WBC (0-5) /hpf Ur Squamous Epith Cells 2 (0-5) /hpf Urine Bacteria Occasional H (None) /hpf Hyaline Casts 7 (0-3) /lpf Micro UA Comment Culture indicated Ur Microscopic Review Not Reportable Urine Culture Comments Culture indicated Imaging Data Radiologist's impression: Abdomen/Pelvis CT 02/21/18 14:43 CONCLUSION: 1. There is moderate hydronephrosis in the right kidney and previously seen right renal stones are no longer seen. Numerous stones in the left kidney. 2. Compression fracture of L1 not changed since 08/2017, however not present on 07/2016. Chest X-Ray 02/21/18 14:43 CONCLUSION: Negative for acute process Head CT 02/21/18 14:43 CONCLUSION: 1. Stable CT scan of the brain compared to 2016. 2. Stable postsurgical changes with aneurysm clipping in the right mid parietal lobe. 3. No focal or acute intracranial hemorrhage. . Discharge Plan Discharge Disposition Patient Disposition: ED Admit(ED Internal Use Only) Discharge Condition Condition: Stable Discharge Order Discharge Orders: ED Use Only Admit Order (Routine); Ordered 02/21/18 Ordered By: Mitali Noe Discharge Details Diagnosis: Acute UTI, Weakness generalized, Neutropenia, Thrombocytopenia Physicians Team ED Provider: Belinda Camargo ED Midlevel Provider: Mitali Noe Primary Care Provider: UNKNOWN, Attending Provider: Jensen Bridges Other Providers: Antoni Giraldo Status ED Status: Admitted Observation Patient
[2018-02-21 15:23] LABS: Activated Partial Thrombo Time 26.1 sec (23.4-31.7); Prothrombin Time 10.2 sec (9.8-11.6)
--- NOTE | 2018-02-21 15:27 | XR ---
EXAM DATE: 02/21/2018 3:25 PM EST AGE/SEX: 77 years / Female INDICATIONS: Fever. CLINICAL DATA: This is the patient's initial encounter. Patient reports that signs and symptoms have been present for 2 days and indicates a pain score of Nonresponsive. MEDICAL/SURGICAL HISTORY: . shooting pain in left ribs since yesterday. None. COMPARISON: [facility] – [place], CHEST SINGLE AP, 08/29/2016. . FINDINGS: A single AP view of the chest demonstrates the lungs to be symmetrically aerated without evidence of mass, infiltrate or effusion. The cardiomediastinal contours are unremarkable. Osseous structures a re intact. CONCLUSION: Negative for acute process Electronically signed by: Angel Avitia MD Board Certified Radiologist 02/21/2018 3:26 PM EST
[2018-02-21 15:37] LABS: Alanine Aminotransferase 28 U/L (10-53); Albumin 2.4 g/dL (3.4-5.0); Anion Gap 9 meq/L (5-15); Aspartate Aminotransferase 32 U/L (15-37); Blood Urea Nitrogen 21 mg/dL (7-18); Calcium 7.7 mg/dL (8.5-10.1); Carbon Dioxide 22.3 meq/L (21.0-32.0); Chloride 108 meq/L (98-107); Glomerular Filtration Rate 53 mL/min (>89); Glucose,Random 125 mg/dL (74-106); Lipase 44 U/L (73-393); Potassium 3.1 meq/L (3.5-5.1); Sodium 139 meq/L (136-145)
[2018-02-21 15:41] LABS: Alkaline Phosphatase 56 U/L (45-117); Total Protein 5.9 g/dL (6.4-8.2); Troponin I 0.04 ng/mL (0.02-0.05)
[2018-02-21 15:42] LABS: Creatine Kinase 98 U/L (26-192)
[2018-02-21 15:43] LABS: Lymphocytes 12 % (9-44); Monocytes 11 % (0-8); Ovalocytes 1+; Platelet Morphology Normal (Normal)
--- NOTE | 2018-02-21 16:09 | CT ---
EXAM DATE: 02/21/2018 4:05 PM EST AGE/SEX: 77 years / Female INDICATIONS: Headache with weakness, history of brain aneurysm. CLINICAL DATA: This is the patient's initial encounter. Patient reports that signs and symptoms have been present for 2 days and indicates a pain score of 4/10. MEDICAL/SURGICAL HISTORY: Aneurysm, intracranial. Parkinson's disease. Stroke. None. RADIATION DOSE: 66.34 CTDI (mGy) COMPARISON: [facility], CT BRAIN W AND W/O CONTRAST, 04/19/2015. . TECHNIQUE: CT of the head without contrast. Using automated exposure control and adjustment of the mA and/or kV according to patient size, radiation dose was kept as low as reasonably achievable to ob tain optimal diagnostic quality images. DICOM format image data is available electronically for revi ew and comparison. FINDINGS: Cerebrum: The ventricles are normal for age. No evidence of midline shift, mass lesion, hemorrhage or acute infarction. No extraaxial fluid collections are seen. Patient is status post a right-sided craniotomy with aneurysm clips noted in the right mid parietal lobe. This is stable and unchanged in its overall appearance compared to 2016 Posterior Fossa: The cerebellum and brainstem are intact. The 4th ventricle is midline. The cerebe llopontine angle is unremarkable. Extracranial: The visualized portion of the orbits is intact. Skull: The calvaria is intact. No evidence of skull fracture. There is a right-sided craniotomy fla p which appears to be in good position. No new or significant changes compared to 2016. CONCLUSION: 1. Stable CT scan of the brain compared to 2016. 2. Stable postsurgical changes with aneurysm clipping in the right mid parietal lobe. 3. No focal or acute intracranial hemorrhage. . Electronically signed by: Harshad Rayo MD Board Certified Radiologist 02/21/2018 4:08 PM EST
--- NOTE | 2018-02-21 16:28 | CT ---
EXAM DATE: 02/21/2018 4:13 PM EST AGE/SEX: 77 years / Female INDICATIONS: Diffuse abdominal pain. CLINICAL DATA: This is the patient's initial encounter. Patient reports that signs and symptoms have been present for 2 days and indicates a pain score of 4/10. MEDICAL/SURGICAL HISTORY: Parkinson's disease. Stroke. Aneurysm, intracranial. multiple myel fina None. ORAL CONTRAST: No oral contrast ingested. RADIATION DOSE: 6.64 CTDI (mGy) COMPARISON: [facility], CT ABDOMEN & PELVIS W/O CONTRAST, 09/03/2017. [facility], CT ABDOMEN AND PELVIS W/ CON TRAST, 08/03/2016. . TECHNIQUE: Multiple contiguous axial images were obtained through the abdomen and pelvis following b olus infusion of 99 ml Omnipaque 350 (iohexol) nonionic water-soluble contrast as a single exam dos e. No oral contrast ingested. Using automated exposure control and adjustment of the mA and/or kV ac cording to patient size, radiation dose was kept as low as reasonably achievable to obtain optimal di agnostic quality images. DICOM format image data is available electronically for review and comparis on. FINDINGS: Abdomen CT: The spleen, pancreas, adrenals are unremarkable. There is moderate hydronephrosis in the right kidn ey. Previously seen right ureteral stones are no longer seen. There is a tiny subcentimeter cyst righ t hepatic lobe and not changed. There are numerous stones in the left kidney the largest conglomerate of stones in left lower pole measuring 1.1 cm in size. There are cysts in the left kidney the larges t measures 2.5 cm in size. 1 of the cysts is slightly complex exophytic measures 1.1 cm coming off th e left kidney laterally not changed since 2017. The right renal pelvis appears prominent partially ex trarenal, however possibility of a mild There is no evidence for any appreciable pathological adenopa thy, free fluid, or bowel obstruction. There are atherosclerotic calcifications involving the aorta and iliac arteries chronic in nature. Tiny pericardial effusion is seen probably of no clinical signi ficance. Pelvic CT: There is no evidence for mass, abscess formation, or any significant adenopathy within the pelvis. T here is compression fracture of L1 not adequately characterized on the order of 70% with superimposed degenerative change in lumbar scoliosis convexity towards the right. There is moderate amount of stool in the colon particularly rectum . There are numerous diverticuli within the colon mainly the sigmoid colon without signs of diverticulitis for technique. CONCLUSION: 1. There is moderate hydronephrosis in the right kidney and previously seen right renal stones are n o longer seen. Numerous stones in the left kidney. 2. Compression fracture of L1 not changed since 08/2017, however not present on 07/2016. Electronically signed by: Maria M Carlos MD Board Certified Radiologist 02/21/2018 4:26 PM EST
[2018-02-21 16:40] LABS: Bacteria,Urine Occasional /hpf; Bilirubin,Urine Negative (Negative); Clarity,Urine Cloudy (Clear); Color,Urine Yellow (Yellw/Straw); Glucose,Urine (UA) Negative (Negative); Hyaline Casts,Urine 7 /lpf (0-3); Leukocyte Esterase,Urine Large (Negative); Nitrite,Urine Positive (Negative); Specific Gravity,Urine 1.026 (1.002-1.035); Squamous Epithelial Cell,Urine 2 /hpf (0-5)
--- NOTE | 2018-02-21 17:16 | P.HPIM ---
History of Present Illness Primary Care Physician: Dr. Tosin Cuellar Chief Complaint: weakness History of Present Illness: This is a 77 year old female patient with a past medical history which includes: normochromic and normocytic anemia, CVA, Parkinson's disease, hyperlipidemia, gastroparesis, diverticulitis, GERD, OA, B12 deficiency, depression, osteoporosis, chronic pain syndrome received steroid injections to her lumbar spine through pain management and Multiple myeloma follows with Dr. Hinton. Patient is currently on Revlimid 10 mg daily 21 days on and 7 days off per patient and caregiver last dose of Revlimid was Saturday02/18/18. Patient currently lives alone, and a member of her hoahaoism checks on her and assist with care. Patient presents to the ER today with weakness and headache. Patient states she is been feeling this way for at least 24 hours. Per EMS patient was laying on her bed, she was unable to get up on her own. She was able to stand and walk a few steps with them but they were holding her up. They stated that on their arrival she was clammy and reporting chills, her temp at that time was 99.2. Patient is currently reporting a headache to the left temporal area that is been intermittent, she states the pain gets to be a 10 out of 10 and is throbbing. This is been ongoing for several days. She denies any falls. She states that she has been having to hold onto the lizarraga when she gets up. She normally ambulates without difficulty. Patient vomited when EMS stood her up, she reported feeling dizzy. She does report dry heaving a few times over the last few days. Patient has taken tramadol and Excedrin for the headache, this alleviates her symptoms. She has been tolerating food and fluids, she denies any chest pain, shortness of breath, dysuria, fevers. PMH: normochromic and normocytic anemia, CVA, Parkinson's disease, hyperlipidemia, gastroparesis, diverticulitis, GERD, OA, B12 deficiency, depression, osteoporosis, chronic pain syndrome and Multiple myeloma follows with Dr. Hinton PSxH: cerebral hemorrhage followed by craniotomy and aneurysmal clipping Nov 2013, Cholecystectomy, appendectomy, breast biopsy, TAHBSO, right knee replacement, tubal ligation, cystocele repair, cataract surgery and colonoscopy Social history: currently living alone Denies ETOH use, tobacco use or illicit drug use FMH: reviewed and noncontributory Medications and Allergies Allergies Allergy/AdvReac Type Severity Reaction Status Date / Time acetaminophen Allergy Severe NONE Verified 02/04/18 09:46 codeine Allergy Severe WAKEFULNESS Verified 02/04/18 09:46 diazepam Allergy Severe HYPER Verified 02/04/18 09:46 diclofenac Allergy Severe NAUSEA/VOMI Verified 02/04/18 09:46 TING etodolac Allergy Severe NAUSEA/VOMI Verified 02/04/18 09:46 TING flurbiprofen Allergy Severe NAUSEA/VOMI Verified 02/04/18 09:46 TING hydrocodone Allergy Severe Anxiety Verified 02/04/18 09:46 ibuprofen Allergy Severe NAUSEA/VOMI Verified 02/04/18 09:46 TING indomethacin Allergy Severe NAUSEA/VOMI Verified 02/04/18 09:46 TING ketoprofen Allergy Severe NAUSEA/VOMI Verified 02/04/18 09:46 TING ketorolac Allergy Severe NAUSEA/VOMI Verified 02/04/18 09:46 TING levofloxacin Allergy Severe NAUSEA/VOMI Verified 02/04/18 09:46 TING midazolam Allergy Severe Restlessnes Verified 02/04/18 09:46 s naproxen Allergy Severe NAUSEA/VOMI Verified 02/04/18 09:46 TING oxaprozin Allergy Severe NAUSEA/VOMI Verified 02/04/18 09:46 TING Sulfa (Sulfonamide Allergy Severe NAUSEA/VOMI Verified 02/04/18 09:46 Antibiotics) TING adhesive AdvReac Intermediate HIVES Verified 02/04/18 09:46 CLOTH TAPE Allergy Intermediate Rash AND Uncoded 02/04/18 09:46 BLISTERS Home Medications Medication Instructions Recorded Confirmed Type acyclovir 400 mg PO BID 01/21/18 02/21/18 History aspirin [Adult Low Dose Aspirin] 81 mg PO DAILY 01/21/18 02/21/18 History calcium carbonate [Calcium 600] 600 mg PO DAILY 01/21/18 02/21/18 History cyanocobalamin (vitamin B-12) 2,000 mcg PO DAILY 01/21/18 02/21/18 History [Vitamin B-12] escitalopram oxalate [Lexapro] 20 mg PO DAILY 01/21/18 02/21/18 History estradiol 1 mg PO DAILY 01/21/18 02/21/18 History furosemide 20 mg PO DAILY 01/21/18 02/21/18 History gabapentin 100 mg PO BID 01/21/18 02/21/18 History hydrocodone-acetaminophen [[place]] 1 - 2 tab PO Q6H PRN 01/21/18 02/21/18 History lenalidomide [Revlimid] 5 mg PO DAILY 01/21/18 02/21/18 History lorazepam 0.5 mg PO DAILY 01/21/18 02/21/18 History lovastatin 40 mg PO BID 01/21/18 02/21/18 History omeprazole 20 mg PO DAILY 01/21/18 02/21/18 History potassium chloride [Klor-Con M20] 20 meq PO DAILY 01/21/18 02/21/18 History prochlorperazine maleate 10 mg PO TID 01/21/18 02/21/18 History propranolol [Inderal LA] 40 mg PO DAILY 01/21/18 02/21/18 History tramadol 50 mg PO TID PRN 01/21/18 02/21/18 History lactulose 10 g PO QID 02/21/18 02/21/18 History pramipexole 0.125 mg PO TID 02/21/18 02/21/18 History Active Medications: Active Medications Ceftriaxone Sodium 2,000 mg/ (Sodium Chloride) 100 mls @ 200 mls/hr IV.SIG ONCE ONE Stop: 02/21/18 17:11 Potassium Chloride/Sodium Chloride (Potassium Chlor 20 Meq/Nacl 0.45% Inj) 1, 000 mls @ 84 mls/hr IV.CONT .[id number] DEVONTE Ondansetron HCl (Zofran Inj) 4 mg IV.PUSH Q6H PRN PRN Reason: NAUSEA OR VOMITING Sodium Chloride (Ns Flush) 2 ml IV.FLUSH BID DEVONTE Sodium Chloride (Ns Flush) 2 ml IV.FLUSH PRN PRN PRN Reason: FLUSH AFTER USING IV ACCESS Physical Exam Vital signs: Last Vital Signs Temp 99.1 F 02/21/18 14:46 Pulse 96 H 02/21/18 14:46 Resp 18 02/21/18 14:46 BP 132/60 02/21/18 14:46 Pulse Ox 96 02/21/18 14:49 Narrative: GENERAL: This is a frail patient who appears older than stated age CARDIOVASCULAR: Regular rate and rhythm RESPIRATORY: Clear to auscultation. Breath sounds equal bilaterally. GASTROINTESTINAL: Abdomen soft, non-tender, nondistended. Normal active bowel sounds MUSCULOSKELETAL: Extremities without clubbing, cyanosis, or edema. NEURO: Alert & Oriented x4 to person, place, time, situation. Moves all ext x4 Results Labs CBC & Chem 7: 02/22/18 05:19 02/22/18 05:19 Caprini VTE Risk Assessment Caprini VTE Risk Assessment: Moderate/High Risk (score >= 2) Caprini Risk Assessment Model: Point Value = 1 Point Value = 2 Point Value = 3 Point Value = 5 Age 41-60 Minor surgery BMI > 25 kg/m2 Swollen legs Varicose veins or History of unexplained or recurrent spontaneous Oral contraceptives or hormone replacement Sepsis (< 1 month) Serious lung disease, including pneumonia (< 1 month) Abnormal pulmonary function Acute myocardial infarction Congestive heart failure (< 1 month) History of inflammatory bowel disease Medical patient at bed rest Age 61-74 Arthroscopic surgery Major open surgery (> 45 min) Laparoscopic surgery (> 45 min) Malignancy Confined to bed (> 72 hours) Immobilizing plaster cast Central venous access Age >= 75 History of VTE Family history of VTE Factor V Leiden Prothrombin [id number] Lupus anticoagulant Anticardiolipin antibodies Elevated serum homocysteine Heparin-induced thrombocytopenia Other congenital or acquired thrombophilia Stroke (< 1 month) Elective arthroplasty Hip, pelvis, or leg fracture Acute spinal cord injury (< 1 month) Prophylaxis Regimen: Total Risk Factor Score Risk Level Prophylaxis Regimen 0-1 Low Early ambulation 2 Moderate Order ONE of the following: *Sequential Compression Device (SCD) *Heparin 5000 units SQ BID 3-4 Higher Order ONE of the following medications: *Heparin 5000 units SQ TID *Enoxaparin/Lovenox 40 mg SQ daily (WT < 150 kg, CrCl > 30 mL/min) *Enoxaparin/Lovenox 30 mg SQ daily (WT < 150 kg, CrCl > 10-29 mL/min) *Enoxaparin/Lovenox 30 mg SQ BID (WT < 150 kg, CrCl > 30 mL/min) AND/OR *Sequential Compression Device (SCD) 5 or more Highest Order ONE of the following medications: *Heparin 5000 units SQ TID (Preferred with Epidurals) *Enoxaparin/Lovenox 40 mg SQ daily (WT < 150 kg, CrCl > 30 mL/min) *Enoxaparin/Lovenox 30 mg SQ daily (WT < 150 kg, CrCl > 10-29 mL/min) *Enoxaparin/Lovenox 30 mg SQ BID (WT < 150 kg, CrCl > 30 mL/min) AND *Sequential Compression Device (SCD) Assessment and Plan Plan This is a 77 year old female patient with a past medical history which includes : normochromic and normocytic anemia, CVA, Parkinson's disease, hyperlipidemia, gastroparesis, diverticulitis, GERD, OA, B12 deficiency, depression, osteoporosis, chronic pain syndrome received steroid injections to her lumbar spine through pain management and Multiple myeloma follows with Dr. Hinton. Patient is currently on Revlimid 10 mg daily 21 days on and 7 days off per patient and caregiver last dose of Revlimid was Saturday02/18/18. Patient currently lives alone, and a member of her hoahaoism checks on her and assist with care. Patient presents to the ER today with weakness and headache. Weakness likely related to UTI and current chemotherapy UTI UA reviewed consistent with UTI Urine culture pending ER started Rocephin will continue Headache Head CT 02/21/[address] scan of the brain compared to 2016. 2. Stable postsurgical changes with aneurysm clipping in the right mid parietal lobe. 3. No focal or acute intracranial hemorrhage. hydrocodone as needed for pain MRI/MRA ordered Right hydronephrosis Abdomen/Pelvis CT 02/21/18 1. There is moderate hydronephrosis in the right kidney and previously seen right renal stones are no longer seen. Numerous stones in the left kidney. 2. Compression fracture of L1 not changed since 08/2017, however not present on 07/2016. Consult urology IVF Multiple myeloma follows with Dr. Hinton Patient has completed 8 cycles of induction RVD and then was started on Revlimid 10 mg daily 21 days on and 7 days off last dose of Revlimid was Saturday02/18/18 Continue patient's home acyclovir 400 mg PO BID due to immunosuppression CVA Continue aspirin 81 mg PO daily Depression Continue home Lexapro Parkinson's disease Continue home pramipexole Hyperlipidemia Continue home lovastatin 40 mg PO daily GERD Continue home Omeprazole DVT prophylaxis with SCDs
[2018-02-21] MEDS ORDERED: PRAMIPEXOLE 0.125 MG PO SCH (18:00)
--- NOTE | 2018-02-21 19:28 | P.CONURO ---
History of Present Illness Service: [facility] Consult date: 02/21/18 Requesting Physician: Jensen Bridges Reason for Consult: Hydronephrosis, right Primary Care Provider: UNKNOWN Chief Complaint: weakness History of Present Illness: Several day hx of weakness, nausea, vomiting. Today chills. Chronic constipation required Dulculax yesterday to have a BM . Urology consult for RIGHT hydronephrosis on CT scan. No stone on right side. Several stones in LEFT kidney. Her Urologist is Dr. Cole for stones. CT scan W/O contrast: Right hydronephrosis, moderate, hydro-ureter into pelvis. Bladder and right ureter significantly displaced anteriorly by a distended sigmoid colon full of air and stool. Multiple, non-obstructing stones in LEFT kidney known to patient. Review of Systems Constitutional: Reports weakness Gastrointestinal: Reports constipation, Reports nausea, Reports vomiting Genitourinary: Reports other (weak urine flow, dribbling. Uses panty liner, not Depends.) [facility] - History History Provided By: Patient - Medical History Medical History: Medical History (Last Reviewed 02/21/18 @ 15:21 by CARA Soliman) Brain aneurysm Multiple myeloma Parkinsons Stroke - Tobacco History Second Hand Smoke Exposure: No Tobacco Use In Past 30 Days: No Smoking Status: Never smoker - Alcohol History How Often Do You Have a Drink Containing Alcohol: Never - Substance Use History Substance History: No History of Abuse - Travel History Recent Travel in the [place] Within the Last 8 Weeks: No Recent Travel Out of the Country Within the Last 8 Weeks: No - Immunization History Tetanus Immunization: Unsure Medications and Allergies Active Medications: Active Medications Hydrocodone Bitart/Acetaminophen ([place] 5/325) 1 tab PO Q6H PRN PRN Reason: PAIN SCALE 1 TO 10 Acyclovir (Zovirax) 400 mg PO BID DEVONTE Aspirin (Ecotrin) 81 mg PO DAILY DEVONTE Escitalopram Oxalate (Lexapro) 20 mg PO DAILY DEVONTE Gabapentin (Neurontin) 100 mg PO BID DEVONTE Potassium Chloride/Sodium Chloride (Potassium Chlor 20 Meq/Nacl 0.45% Inj) 1, 000 mls @ 84 mls/hr IV.CONT .[id number] DEVONTE Ceftriaxone Sodium 1,000 mg/ (Sodium Chloride) 100 mls @ 200 mls/hr IV.SIG Q24H DEVONTE Lorazepam (Ativan Inj) 0.5 mg IV.PUSH Q6H PRN PRN Reason: AGITATION AND/OR HALLUCINATION Miscellaneous (Pill Splitter) 1 each OTHER UNSCH PRN PRN Reason: PILL SPLITTER Ondansetron HCl (Zofran Inj) 4 mg IV.PUSH Q6H PRN PRN Reason: NAUSEA OR VOMITING Pantoprazole Sodium (Protonix) 20 mg PO DAILY [facility] Pramipexole Dihydrochloride (Mirapex) 0.125 mg PO TID [facility] Pravastatin Sodium (Pravachol) 40 mg PO BID [facility] Propranolol HCl (Inderal La) 40 mg PO DAILY [facility] Sodium Chloride (Ns Flush) 2 ml IV.FLUSH BID [facility] Sodium Chloride (Ns Flush) 2 ml IV.FLUSH PRN PRN PRN Reason: FLUSH AFTER USING IV ACCESS Allergies Allergy/AdvReac Type Severity Reaction Status Date / Time acetaminophen Allergy Severe NONE Verified 02/04/18 09:46 codeine Allergy Severe WAKEFULNESS Verified 02/04/18 09:46 diazepam Allergy Severe HYPER Verified 02/04/18 09:46 diclofenac Allergy Severe NAUSEA/VOMI Verified 02/04/18 09:46 TING etodolac Allergy Severe NAUSEA/VOMI Verified 02/04/18 09:46 TING flurbiprofen Allergy Severe NAUSEA/VOMI Verified 02/04/18 09:46 TING hydrocodone Allergy Severe Anxiety Verified 02/04/18 09:46 ibuprofen Allergy Severe NAUSEA/VOMI Verified 02/04/18 09:46 TING indomethacin Allergy Severe NAUSEA/VOMI Verified 02/04/18 09:46 TING ketoprofen Allergy Severe NAUSEA/VOMI Verified 02/04/18 09:46 TING ketorolac Allergy Severe NAUSEA/VOMI Verified 02/04/18 09:46 TING levofloxacin Allergy Severe NAUSEA/VOMI Verified 02/04/18 09:46 TING midazolam Allergy Severe Restlessnes Verified 02/04/18 09:46 s naproxen Allergy Severe NAUSEA/VOMI Verified 02/04/18 09:46 TING oxaprozin Allergy Severe NAUSEA/VOMI Verified 02/04/18 09:46 TING Sulfa (Sulfonamide Allergy Severe NAUSEA/VOMI Verified 02/04/18 09:46 Antibiotics) TING adhesive AdvReac Intermediate HIVES Verified 02/04/18 09:46 CLOTH TAPE Allergy Intermediate Rash AND Uncoded 02/04/18 09:46 BLISTERS Home Medications Medication Instructions Recorded Confirmed Type acyclovir 400 mg PO BID 01/21/18 02/21/18 History aspirin [Adult Low Dose Aspirin] 81 mg PO DAILY 01/21/18 02/21/18 History calcium carbonate [Calcium 600] 600 mg PO DAILY 01/21/18 02/21/18 History cyanocobalamin (vitamin B-12) 2,000 mcg PO DAILY 01/21/18 02/21/18 History [Vitamin B-12] escitalopram oxalate [Lexapro] 20 mg PO DAILY 01/21/18 02/21/18 History estradiol 1 mg PO DAILY 01/21/18 02/21/18 History furosemide 20 mg PO DAILY 01/21/18 02/21/18 History gabapentin 100 mg PO BID 01/21/18 02/21/18 History hydrocodone-acetaminophen [[place]] 1 - 2 tab PO Q6H PRN 01/21/18 02/21/18 History lenalidomide [Revlimid] 5 mg PO DAILY 01/21/18 02/21/18 History lorazepam 0.5 mg PO DAILY 01/21/18 02/21/18 History lovastatin 40 mg PO BID 01/21/18 02/21/18 History omeprazole 20 mg PO DAILY 01/21/18 02/21/18 History potassium chloride [Klor-Con M20] 20 meq PO DAILY 01/21/18 02/21/18 History prochlorperazine maleate 10 mg PO TID 01/21/18 02/21/18 History propranolol [Inderal LA] 40 mg PO DAILY 01/21/18 02/21/18 History tramadol 50 mg PO TID PRN 01/21/18 02/21/18 History lactulose 10 g PO QID 02/21/18 02/21/18 History pramipexole 0.125 mg PO TID 02/21/18 02/21/18 History Physical Exam Vital Signs - 24 hr 02/21/18 14:46 02/21/18 14:49 Temperature 99.1 F Pulse Rate 96 H Respiratory Rate 18 Blood Pressure 132/60 Pulse Oximetry 94 L 96 Physical Exam: GENERAL: This is an elderly well-nourished, well-developed patient, complaining of left sided head pain. Light touching anywhere causes complaint of pain. SKIN: No rashes, ecchymoses or lesions. Cool and dry. HEAD: Atraumatic. Normocephalic. No temporal or scalp tenderness. EYES: Pupils equal round and reactive. Extraocular motions intact. No scleral icterus. No injection or drainage. ENT: Nose without bleeding, purulent drainage or septal hematoma. Throat without erythema, tonsillar hypertrophy or exudate. Uvula midline. Airway patent. NECK: Trachea midline. No JVD or lymphadenopathy. Supple, nontender, no meningeal signs. CARDIOVASCULAR: Regular rate and rhythm without murmurs, gallops, or rubs. RESPIRATORY: Clear to auscultation. Breath sounds equal bilaterally. No wheezes , rales, or rhonchi. GASTROINTESTINAL: Abdomen soft, non-tender, nondistended. No hepato-splenomegaly , or palpable masses. No guarding. Rectal: not done. GENITOURINARY: FLANKS: Patient complains of tenderness wherever she is touched. Cannot determine if she has flank tenderness or not. MUSCULOSKELETAL: Extremities without clubbing, cyanosis, or edema. No joint tenderness, effusion, or edema noted. No calf tenderness. Negative Homans sign bilaterally. NEUROLOGICAL: Awake and alert. Cranial nerves II through XII intact. Motor and sensory grossly within normal limits. Five out of 5 muscle strength in all muscle groups. Normal speech. Lab results reviewed: Yes Laboratory Results - last 24 hr 02/21/18 02/21/18 02/21/18 14:50 14:50 14:50 WBC 1.1 L RBC 3.18 L Hgb 10.4 L Hct 30.6 L MCV 96.2 MCH 32.8 MCHC 34.1 RDW 17.2 Plt Count 73 L MPV 7.7 Prelim Diff (Auto) Slide review pending Neut % (Auto) 77.7 H Lymph % (Auto) 10.4 [place] % (Auto) 11.3 H Eos % (Auto) 0.4 Baso % (Auto) 0.2 Neut # (Auto) 0.8 L Lymph # (Auto) 0.1 L [place] # (Auto) 0.1 Eos # (Auto) 0.0 Baso # (Auto) 0.0 WBC Differential Manual diff final Seg Neuts % (Manual) 65 Band Neuts % (Manual) 12 H Lymphocytes % (Manual) 12 Monocytes % (Manual) 11 H Abs Neuts (Manual) 0.8 L Differential Comment . Platelet Estimate Low L Platelet Morphology Normal Ovalocytes 1+ H PT 10.2 INR 1.0 APTT 26.1 Sodium 139 Potassium 3.1 L Chloride 108 H Carbon Dioxide 22.3 Anion Gap 9 BUN 21 H Creatinine 1.02 H Estimated GFR 53 L Random Glucose 125 H Lactic Acid Calcium 7.7 L Magnesium 2.0 Total Bilirubin 0.7 AST 32 ALT 28 Alkaline Phosphatase 56 Total Creatine Kinase 98 Troponin I 0.04 Total Protein 5.9 L Albumin 2.4 L Lipase 44 L Urine Color Urine Clarity Urine pH Ur Specific [place] Urine Protein Urine Glucose (UA) Urine Ketones Urine Occult Blood Urine Nitrate Urine Bilirubin Urine Urobilinogen Ur Leukocyte Esterase Urine RBC Urine WBC Ur Squamous Epith Cells Urine Bacteria Hyaline Casts Micro UA Comment Ur Microscopic Review Urine Culture Comments 02/21/18 02/21/18 14:50 16:15 WBC RBC Hgb Hct MCV MCH MCHC RDW Plt Count MPV Prelim Diff (Auto) Neut % (Auto) Lymph % (Auto) [place] % (Auto) Eos % (Auto) Baso % (Auto) Neut # (Auto) Lymph # (Auto) [place] # (Auto) Eos # (Auto) Baso # (Auto) WBC Differential Seg Neuts % (Manual) Band Neuts % (Manual) Lymphocytes % (Manual) Monocytes % (Manual) Abs Neuts (Manual) Differential Comment Platelet Estimate Platelet Morphology Ovalocytes PT INR APTT Sodium Potassium Chloride Carbon Dioxide Anion Gap BUN Creatinine Estimated GFR Random Glucose Lactic Acid 1.4 Calcium Magnesium Total Bilirubin AST ALT Alkaline Phosphatase Total Creatine Kinase Troponin I Total Protein Albumin Lipase Urine Color Yellow Urine Clarity Cloudy H Urine pH 5.0 Ur Specific [place] 1.026 Urine Protein 100 H Urine Glucose (UA) Negative Urine Ketones Trace H Urine Occult Blood Moderate H Urine Nitrate Positive H Urine Bilirubin Negative Urine Urobilinogen Less than 2 Ur Leukocyte Esterase Large H Urine RBC 10 H Urine WBC Ur Squamous Epith Cells 2 Urine Bacteria Occasional H Hyaline Casts 7 Micro UA Comment Culture indicated Ur Microscopic Review Not Reportable Urine Culture Comments Culture indicated Microbiology 02/21/18 16:20 Influenza Types A,B Antigen - Final Nasal Wash Negative for FLU A and B antigen Infection due to influenza A or B cannot be ruled out since the antigen present in the sample may be below the detection limit of the test. Result Diagrams: 02/21/18 14:50 02/21/18 14:50 Personally reviewed images: Yes Imaging: ITS Impressions Abdomen/Pelvis CT 02/21/18 14:43 CONCLUSION: 1. There is moderate hydronephrosis in the right kidney and previously seen right renal stones are no longer seen. Numerous stones in the left kidney. 2. Compression fracture of L1 not changed since 08/2017, however not present on 07/2016. Chest X-Ray 02/21/18 14:43 CONCLUSION: Negative for acute process Head CT 02/21/18 14:43 CONCLUSION: 1. Stable CT scan of the brain compared to 2016. 2. Stable postsurgical changes with aneurysm clipping in the right mid parietal lobe. 3. No focal or acute intracranial hemorrhage. . Assessment and Plan - Assessment (1) Hydronephrosis of right kidney Code(s): N13.30 - Unspecified hydronephrosis Status: Chronic (2) Hydroureter on right Code(s): N13.4 - Hydroureter Status: Chronic (3) Renal calculus, left Code(s): N20.0 - Calculus of kidney Status: Chronic - Plan Etiology of right hydronephrosis and hydroureter and weak, dribbling urine flow , in the absence of any stone on the right, appears to be due to a distended sigmoid colon displacing bladder anteriorly and obstructing the distal right ureter. Stones in left kidney are non-obstructing and require no Rx now. No indication for any Urological intervention at present. Rec: Clean out her sigmoid of stool and gas. Discussed above with Dr. Bridges. F/U with her Urologist, Dr. Cole after discharge. Discussed Condition With: Patient, report checker, nurse, Dr. Bridges. Discharge Planning: See PLAN
[2018-02-21] MEDS: Acyclovir 200 MG Capsule PO SCH (20:25)
[2018-02-21] MEDS: Gabapentin 100 MG Capsule PO SCH (20:25)
[2018-02-21] MEDS: KCL 20 mEq/NACL 0.45% Inj 1,000 ML IV.CONT SCH (20:27)
[2018-02-22] MEDS: KCL 20 mEq/NACL 0.45% Inj 1,000 ML IV.CONT SCH ×2 (04:19→18:49)
[2018-02-22 06:45] LABS: Prothrombin Time 10.2 sec (9.8-11.6)
[2018-02-22 06:46] LABS: Baso % (Auto) 0.3 % (0.0-2.0); Hematocrit 29.1 % (35.0-46.0); Hemoglobin 9.5 gm/dL (11.6-15.3); Lymph # (Auto) 0.2 th/mm3 (1.0-4.8); Lymph % (Auto) 19.4 % (9.0-44.0); Mean Corpuscular HGB Conc 32.8 % (32.0-36.0); Mean Corpuscular Hemoglobin 31.9 pg (27.0-34.0); Mean Corpuscular Volume 97.2 fL (80.0-100.0); Mean Platelet Volume 8.4 fL (7.0-11.0); Mono # (Auto) 0.1 th/mm3 (0.0-0.9); Neut # (Auto) 0.7 th/mm3 (1.8-7.7); Neut % (Auto) 69.3 % (16.0-70.0); Platelet Count 61 th/mm3 (150-450); Red Blood Count 2.99 mil/mm3 (4.00-5.30); Red Cell Distribution Width 17.5 % (11.6-17.2)
[2018-02-22 07:09] LABS: Calcium 7.2 mg/dL (8.5-10.1); Carbon Dioxide 23.9 meq/L (21.0-32.0); Potassium 4.1 meq/L (3.5-5.1)
[2018-02-22 07:15] LABS: Calcium-Albumin Corrected 8.8 mg/dL (8.5-10.1)
[2018-02-22 09:25] LABS: Eosinophils 3 % (0-4); Lymphocytes 18 % (9-44); Monocytes 2 % (0-8); Ovalocytes 1+
[2018-02-22 09:26] LABS: Platelet Morphology Normal (Normal); Toxic Granulation 2+
[2018-02-22] MEDS ORDERED: Gadobutrol PF 7.5 MMOL/7.5 ML Vial (for RAD) IV.SIG ONE (09:26)
--- NOTE | 2018-02-22 09:35 | MR ---
EXAM DATE: 02/22/2018 9:29 AM EST AGE/SEX: 77 years / Female INDICATIONS: Cephalgia. CLINICAL DATA: This is the patient's initial encounter. Patient reports that signs and symptoms have been present for 1 day and indicates a pain score of 5/10. MEDICAL/SURGICAL HISTORY: Aneurysm, intracranial. Parkinson's disease. Arthritis. Multiple m yeloma. Craniotomy. Appendectomy. Cholecystectomy. Aneurysm clipping. TMJ surgery. Hysterectomy . COMPARISON: [facility], CT HEAD W/O CONTRAST, 02/21/2018. [facility], CT BRAIN W AND W/O CONTRAST, 04/19/2015. . TECHNIQUE: Multiplanar, multisequence examination of the brain was performed without and with 6 ml Ga davist (gadobutrol) contrast as a single exam dose. FINDINGS: There is evidence for prior aneurysm coiling right mid parietal region. There is no evidence for intr acranial hemorrhage, mass effect, mass lesions, edema, or extra-axial fluid collections. The ventric les are prominent probably due to atrophic changes. There are no signs of acute infarction for techn ique. The diffusion portion, and postcontrast portion are unremarkable. Slight degree of brain atrop hy is seen. Slight periventricular white matter changes are seen nonspecific mostly consistent with c hronic small vessel ischemic changes. CONCLUSION: Chronic small vessel ischemic and atrophic changes, postsurgical and aneurysm clipping r ight mid parietal not significantly changed since 2015 . Electronically signed by: Maria M Carlos MD Board Certified Radiologist 02/22/2018 9:34 AM EST
--- NOTE | 2018-02-22 09:48 | MR ---
EXAM DATE: 02/22/2018 9:28 AM EST AGE/SEX: 77 years / Female INDICATIONS: Cephalgia. CLINICAL DATA: This is the patient's initial encounter. Patient reports that signs and symptoms have been present for 1 day and indicates a pain score of 6/10. MEDICAL/SURGICAL HISTORY: Aneurysm, intracranial. Arthritis. Parkinson's disease. Multiple m yeloma. Craniotomy. Appendectomy. Cholecystectomy. Aneurysm clipping. Appendectomy. TMJ surgery . COMPARISON: [facility] [place], CTA BRAIN W 3D RECON, 12/11/2013. . TECHNIQUE: 3D [id number] MRA was performed. Source images, multiplanar STS MIP, and 3D volum e MIP reconstructions were reviewed. FINDINGS: There is excellent visualization of the major intracranial arteries out to the second-order branch ve ssels. There is no evidence for aneurysm, vessel truncation or stenosis, and no evidence for vascula r malformation. There is evidence for aneurysm clipping right mid parietal region without evidence fo r aneurysm. CONCLUSION: 1. Unremarkable study except for evidence for prior aneurysm clipping. Electronically signed by: Maria M Carlos MD Board Certified Radiologist 02/22/2018 9:46 AM EST
--- NOTE | 2018-02-22 10:54 | P.CONID ---
History of Present Illness Service: Infectious disease Consult date: 02/22/18 Requesting Physician: Jensen Bridges Reason for Consult: Evaluate patient with gram-negative bacteremia Primary Care Provider: UNKNOWN Chief Complaint: weakness History of Present Illness: Patient seen and examined. Records reviewed. She is not a very good historian. Patient is a 77-year-old female, she lives alone, has a caregiver, presented to the hospital complaining of generalized weakness. She was also having some headache, but denies any neck pain or any photophobia. Patient has had problem with urinary tract infection in the past. She currently is complaining of dribbling and some dysuria over the last several days. She has history of kidney stones, and at one point had a stent on the right kidney and it was reportedly removed at least about a month or so ago. She had an episode of vomiting. She denies any respiratory complaint, sore throat. Patient has always had problem with constipation. Patient has known multiple myeloma, and getting Revlimid from Dr. Hinton. She is to get once a month blood work. There was blood work done on February 20, and her white count was down to 1.5. The caregiver was told that she will now need to get weekly blood work for closer monitoring. The CBC on January 23 showed a WBC count of 4.5. Patient also has Parkinson's and has problem with tremors, and she follows up with a neurologist. On presentation patient has been febrile. Her WBC is down to 1. Urinalysis has significant pyuria. CT of the abdomen and pelvis is showing evidence of right hydronephrosis, although stones were seen. She has kidney stones on the left side but no hydronephrosis seen. She has significant stool in her sigmoid. 2 blood cultures done on admission is now reported as growing gram- negative iram. She is currently on Rocephin. Infectious disease consultation has been requested to assist with evaluation and treatment. Review of Systems Constitutional: Reports chills, Reports fever(s), Reports headache(s) Eyes: Denies discharge, Denies dry eyes Ears, Nose, Mouth, and Throat: Reports headache(s), Denies difficulty swallowing , Denies facial pain, Denies nasal congestion, Denies nasal discharge, Denies pain with swallowing, Denies sore throat Cardiovascular: Denies chest pain, Denies shortness of breath Respiratory: Denies chest congestion, Denies cough Gastrointestinal: Reports abdominal pain, Reports constipation, Reports nausea, Reports vomiting, Denies pain with swallowing Genitourinary: Reports dribbling after urination, Reports painful urination, Denies blood in urine Musculoskeletal: Reports back pain, Reports body aches, Reports muscle weakness , Denies joint pain, Denies joint swelling Skin/Breast: Denies rash, Denies sores Neurologic: Reports headache(s), Reports tremor(s) PMFSH - History History Provided By: Patient, Friend - Medical History Medical History: Medical History (Last Reviewed 02/22/18 @ 10:52 by Susan Lyons MD) Brain aneurysm Multiple myeloma Parkinsons Stroke - Tobacco History Second Hand Smoke Exposure: No Tobacco Use In Past 30 Days: No Smoking Status: Never smoker - Alcohol History How Often Do You Have a Drink Containing Alcohol: Never - Substance Use History Substance History: No History of Abuse - Travel History Recent Travel in the [place] Within the Last 8 Weeks: No Recent Travel Out of the Country Within the Last 8 Weeks: No - Immunization History Tetanus Immunization: Unsure Hx Influenza Vaccine This Season: Yes Medications and Allergies Active Medications: Active Medications Hydrocodone Bitart/Acetaminophen (Walls 5/325) 1 tab PO Q6H PRN PRN Reason: PAIN SCALE 1 TO 10 Last Admin: 02/22/18 08:49 Dose: 1 tab Acyclovir (Zovirax) 400 mg PO BID [facility] Last Admin: 02/21/18 20:25 Dose: 400 mg Aspirin (Ecotrin) 81 mg PO DAILY [facility] Escitalopram Oxalate (Lexapro) 20 mg PO DAILY [facility] Gabapentin (Neurontin) 100 mg PO BID [facility] Last Admin: 02/21/18 20:25 Dose: 100 mg Potassium Chloride/Sodium Chloride (Potassium Chlor 20 Meq/Nacl 0.45% Inj) 1, 000 mls @ 84 mls/hr IV.CONT .[id number] [facility] Last Admin: 02/22/18 04:19 Dose: Not Given Ceftriaxone Sodium 1,000 mg/ (Sodium Chloride) 100 mls @ 200 mls/hr IV.SIG Q24H [facility] Lorazepam (Ativan Inj) 0.5 mg IV.PUSH Q6H PRN PRN Reason: AGITATION AND/OR HALLUCINATION Last Admin: 02/22/18 08:50 Dose: 0.5 mg Miscellaneous (Pill Splitter) 1 each OTHER UNSCH PRN PRN Reason: PILL SPLITTER Ondansetron HCl (Zofran Inj) 4 mg IV.PUSH Q6H PRN PRN Reason: NAUSEA OR VOMITING Pantoprazole Sodium (Protonix) 20 mg PO DAILY [facility] Pramipexole Dihydrochloride (Mirapex) 0.125 mg PO TID [facility] Pravastatin Sodium (Pravachol) 40 mg PO BID [facility] Last Admin: 02/21/18 20:25 Dose: 40 mg Propranolol HCl (Inderal La) 40 mg PO DAILY [facility] Sodium Chloride (Ns Flush) 2 ml IV.FLUSH BID [facility] Last Admin: 02/21/18 20:31 Dose: 2 ml Sodium Chloride (Ns Flush) 2 ml IV.FLUSH PRN PRN PRN Reason: FLUSH AFTER USING IV ACCESS Allergies Allergy/AdvReac Type Severity Reaction Status Date / Time acetaminophen Allergy Severe NONE Verified 02/04/18 09:46 codeine Allergy Severe WAKEFULNESS Verified 02/04/18 09:46 diazepam Allergy Severe HYPER Verified 02/04/18 09:46 diclofenac Allergy Severe NAUSEA/VOMI Verified 02/04/18 09:46 TING etodolac Allergy Severe NAUSEA/VOMI Verified 02/04/18 09:46 TING flurbiprofen Allergy Severe NAUSEA/VOMI Verified 02/04/18 09:46 TING hydrocodone Allergy Severe Anxiety Verified 02/04/18 09:46 ibuprofen Allergy Severe NAUSEA/VOMI Verified 02/04/18 09:46 TING indomethacin Allergy Severe NAUSEA/VOMI Verified 02/04/18 09:46 TING ketoprofen Allergy Severe NAUSEA/VOMI Verified 02/04/18 09:46 TING ketorolac Allergy Severe NAUSEA/VOMI Verified 02/04/18 09:46 TING levofloxacin Allergy Severe NAUSEA/VOMI Verified 02/04/18 09:46 TING midazolam Allergy Severe Restlessnes Verified 02/04/18 09:46 s naproxen Allergy Severe NAUSEA/VOMI Verified 02/04/18 09:46 TING oxaprozin Allergy Severe NAUSEA/VOMI Verified 02/04/18 09:46 TING Sulfa (Sulfonamide Allergy Severe NAUSEA/VOMI Verified 02/04/18 09:46 Antibiotics) TING adhesive AdvReac Intermediate HIVES Verified 02/04/18 09:46 CLOTH TAPE Allergy Intermediate Rash AND Uncoded 02/04/18 09:46 BLISTERS Home Medications Medication Instructions Recorded Confirmed Type acyclovir 400 mg PO BID 01/21/18 02/21/18 History aspirin [Adult Low Dose Aspirin] 81 mg PO DAILY 01/21/18 02/21/18 History calcium carbonate [Calcium 600] 600 mg PO DAILY 01/21/18 02/21/18 History cyanocobalamin (vitamin B-12) 2,000 mcg PO DAILY 01/21/18 02/21/18 History [Vitamin B-12] escitalopram oxalate [Lexapro] 20 mg PO DAILY 01/21/18 02/21/18 History estradiol 1 mg PO DAILY 01/21/18 02/21/18 History furosemide 20 mg PO DAILY 01/21/18 02/21/18 History gabapentin 100 mg PO BID 01/21/18 02/21/18 History hydrocodone-acetaminophen [Walls] 1 - 2 tab PO Q6H PRN 01/21/18 02/21/18 History lenalidomide [Revlimid] 5 mg PO DAILY 01/21/18 02/21/18 History lorazepam 0.5 mg PO DAILY 01/21/18 02/21/18 History lovastatin 40 mg PO BID 01/21/18 02/21/18 History omeprazole 20 mg PO DAILY 01/21/18 02/21/18 History potassium chloride [Klor-Con M20] 20 meq PO DAILY 01/21/18 02/21/18 History prochlorperazine maleate 10 mg PO TID 01/21/18 02/21/18 History propranolol [Inderal LA] 40 mg PO DAILY 01/21/18 02/21/18 History tramadol 50 mg PO TID PRN 01/21/18 02/21/18 History lactulose 10 g PO QID 02/21/18 02/21/18 History pramipexole 0.125 mg PO TID 02/21/18 02/21/18 History Exam Vital signs: Vital Signs 02/21/18 14:46 02/21/18 14:49 02/21/18 19:14 Temperature 99.1 F Pulse Rate 96 H Respiratory Rate 18 18 Blood Pressure 132/60 Pulse Oximetry 94 L 96 02/21/18 20:02 02/22/18 00:06 02/22/18 01:51 Temperature 98.5 F 98.2 F Pulse Rate 90 87 Respiratory Rate 18 16 16 Blood Pressure 114/56 L 98/53 L Pulse Oximetry 94 L 96 02/22/18 04:29 02/22/18 07:35 Temperature 98.3 F 98.2 F Pulse Rate 76 73 Respiratory Rate 18 17 Blood Pressure 102/55 L 115/57 L Pulse Oximetry 96 97 Intake & Output 02/21/18 02/22/18 02/22/18 18:59 06:59 18:59 Intake Total 1200 / 1200 480 / 480 Output Total 300 / 300 Balance 1200 / 1200 180 / 180 Weight 61.689 kg 65.9 kg Intake: IV 1200 / 1200 Ofirmev Inj 1,000 mg In 100 ml 100 / 100 @ 400 mls/hr IV.SIG ONCE ONE Rx #:[id number] NS Inj 1,000 ML @ 1000 mls/hr 1000 / 1000 IV.SIG BOLUS DEVONTE Rx#:[id number] Rocephin Inj 2,000 MG In NS Inj 100 / 100 100 ML @ 200 mls/hr IV.SIG ONCE ONE Rx#:[id number] Oral 480 / 480 Output: Urine 300 / 300 Other: # Voids 3 1 Date of Last Bowel Movement 02/20/18 Weight On Admission 61.7 kg Narrative: Physical examination GENERAL: Patient is a well-nourished, well-developed elderly female, looks frail, awake and alert, not in respiratory distress. Has tremors at rest. SKIN: Warm and dry. No generalized rash, no ecchymoses and no evidence of embolic lesions. HEAD: Atraumatic. Normocephalic. No temporal wasting, or tenderness. EYES: [place] conjunctiva. No petechia or hemorrhage. Pupils equal, round and reactive to light. Extraocular movements full and intact. No scleral icterus. No injection or drainage. EARS, NOSE AND THROAT: Nose without bleeding or purulent nasal discharge. No sinus tenderness. Mucous membranes pink and moist. No oral lesions noted. No exudate. No oral thrush. NECK: Trachea midline. Supple and not tender, no meningeal signs CARDIOVASCULAR: Regular rate and rhythm. No murmurs, rubs or gallops heard RESPIRATORY: Clear to auscultation. Breath sounds equal bilaterally. No rales , wheezing or rhonchi ABDOMEN: Soft, nondistended, has tenderness in lower quadrants, no guarding or rebound. Bowel sounds present and normoactive. EXTREMITIES: No clubbing, cyanosis, or edema. No joint effusion, has good ROM. No calf tenderness. Well perfused and warm. NEUROLOGICAL: Awake and alert. No facila asymmetry. Has tremors at rest PSYCHIATRIC: Normal affect, calm and cooperative. LINE: No evidence of infection Results - Labs CBC & Chem 7: 02/22/18 05:19 02/22/18 05:19 Labs: Laboratory Results - last 24 hr 02/21/18 02/21/18 02/21/18 14:50 14:50 14:50 WBC 1.1 L RBC 3.18 L Hgb 10.4 L Hct 30.6 L MCV 96.2 MCH 32.8 MCHC 34.1 RDW 17.2 Plt Count 73 L MPV 7.7 Prelim Diff (Auto) Slide review pending Neut % (Auto) 77.7 H Lymph % (Auto) 10.4 Bremer % (Auto) 11.3 H Eos % (Auto) 0.4 Baso % (Auto) 0.2 Neut # (Auto) 0.8 L Lymph # (Auto) 0.1 L [place]mer # (Auto) 0.1 Eos # (Auto) 0.0 Baso # (Auto) 0.0 WBC Differential Manual diff final Seg Neuts % (Manual) 65 Band Neuts % (Manual) 12 H Lymphocytes % (Manual) 12 Monocytes % (Manual) 11 H Eosinophils % (Manual) Basophils % (Manual) Abs Neuts (Manual) 0.8 L Differential Comment . Toxic Granulation Platelet Estimate Low L Platelet Morphology Normal Ovalocytes 1+ H PT 10.2 INR 1.0 APTT 26.1 Sodium 139 Potassium 3.1 L Chloride 108 H Carbon Dioxide 22.3 Anion Gap 9 BUN 21 H Creatinine 1.02 H Estimated GFR 53 L Random Glucose 125 H Lactic Acid Calcium 7.7 L Calcium Adj for Albumin Magnesium 2.0 Total Bilirubin 0.7 AST 32 ALT 28 Alkaline Phosphatase 56 Total Creatine Kinase 98 Troponin I 0.04 Total Protein 5.9 L Albumin 2.4 L Lipase 44 L Urine Color Urine Clarity Urine pH Ur Specific [place] Urine Protein Urine Glucose (UA) Urine Ketones Urine Occult Blood Urine Nitrate Urine Bilirubin Urine Urobilinogen Ur Leukocyte Esterase Urine RBC Urine WBC Ur Squamous Epith Cells Urine Bacteria Hyaline Casts Micro UA Comment Ur Microscopic Review Urine Culture Comments 02/21/18 02/21/18 02/22/18 14:50 16:15 05:19 WBC 1.0 L RBC 2.99 L Hgb 9.5 L Hct 29.1 L MCV 97.2 MCH 31.9 MCHC 32.8 RDW 17.5 H Plt Count 61 L MPV 8.4 Prelim Diff (Auto) Slide review pending Neut % (Auto) 69.3 Lymph % (Auto) 19.4 Bremer % (Auto) 9.0 H Eos % (Auto) 2.0 Baso % (Auto) 0.3 Neut # (Auto) 0.7 L Lymph # (Auto) 0.2 L Bremer # (Auto) 0.1 Eos # (Auto) 0.0 Baso # (Auto) 0.0 WBC Differential Manual diff final Seg Neuts % (Manual) 39 Band Neuts % (Manual) 37 H Lymphocytes % (Manual) 18 Monocytes % (Manual) 2 Eosinophils % (Manual) 3 Basophils % (Manual) 1 Abs Neuts (Manual) 0.8 L Differential Comment . Toxic Granulation 2+ H Platelet Estimate Low L Platelet Morphology Normal Ovalocytes 1+ H PT INR APTT Sodium Potassium Chloride Carbon Dioxide Anion Gap BUN Creatinine Estimated GFR Random Glucose Lactic Acid 1.4 Calcium Calcium Adj for Albumin Magnesium Total Bilirubin AST ALT Alkaline Phosphatase Total Creatine Kinase Troponin I Total Protein Albumin Lipase Urine Color Yellow Urine Clarity Cloudy H Urine pH 5.0 Ur Specific [place] 1.026 Urine Protein 100 H Urine Glucose (UA) Negative Urine Ketones Trace H Urine Occult Blood Moderate H Urine Nitrate Positive H Urine Bilirubin Negative Urine Urobilinogen Less than 2 Ur Leukocyte Esterase Large H Urine RBC 10 H Urine WBC Ur Squamous Epith Cells 2 Urine Bacteria Occasional H Hyaline Casts 7 Micro UA Comment Culture indicated Ur Microscopic Review Not Reportable Urine Culture Comments Culture indicated 02/22/18 02/22/18 05:19 05:19 WBC RBC Hgb Hct MCV MCH MCHC RDW Plt Count MPV Prelim Diff (Auto) Neut % (Auto) Lymph % (Auto) [place] % (Auto) Eos % (Auto) Baso % (Auto) Neut # (Auto) Lymph # (Auto) [place] # (Auto) Eos # (Auto) Baso # (Auto) WBC Differential Seg Neuts % (Manual) Band Neuts % (Manual) Lymphocytes % (Manual) Monocytes % (Manual) Eosinophils % (Manual) Basophils % (Manual) Abs Neuts (Manual) Differential Comment Toxic Granulation Platelet Estimate Platelet Morphology Ovalocytes PT 10.2 INR 1.0 APTT Sodium 143 Potassium 4.1 D Chloride 113 H Carbon Dioxide 23.9 Anion Gap 6 BUN 14 Creatinine 0.70 Estimated GFR 81 L Random Glucose 79 Lactic Acid Calcium 7.2 L* Calcium Adj for Albumin 8.8 Magnesium Total Bilirubin AST ALT Alkaline Phosphatase Total Creatine Kinase Troponin I Total Protein Albumin 2.0 L Lipase Urine Color Urine Clarity Urine pH Ur Specific [place] Urine Protein Urine Glucose (UA) Urine Ketones Urine Occult Blood Urine Nitrate Urine Bilirubin Urine Urobilinogen Ur Leukocyte Esterase Urine RBC Urine WBC Ur Squamous Epith Cells Urine Bacteria Hyaline Casts Micro UA Comment Ur Microscopic Review Urine Culture Comments - Imaging Impressions Abdomen/Pelvis CT 02/21/18 14:43 CONCLUSION: 1. There is moderate hydronephrosis in the right kidney and previously seen right renal stones are no longer seen. Numerous stones in the left kidney. 2. Compression fracture of L1 not changed since 08/2017, however not present on 07/2016. Chest X-Ray 02/21/18 14:43 CONCLUSION: Negative for acute process Head CT 02/21/18 14:43 CONCLUSION: 1. Stable CT scan of the brain compared to 2016. 2. Stable postsurgical changes with aneurysm clipping in the right mid parietal lobe. 3. No focal or acute intracranial hemorrhage. . Head MRI 02/22/18 00:00 CONCLUSION: Chronic small vessel ischemic and atrophic changes, postsurgical and aneurysm clipping right mid parietal not significantly changed since 2016 . Head MRA 02/22/18 00:00 CONCLUSION: 1. Unremarkable study except for evidence for prior aneurysm clipping. Assessment and Plan - Plan Impression GNR sepsis due to urosepsis, has R hydro and stones in L kidney, no obstruction Neutropenia Multiple myeloma, on revlimid Parkinsons Chronic back pain Chronic constipation - felt by urologist to be causing obstruction to R Allergy to Levaquin and Sulfa Recommendation Urology evaluating patient Repeat BC IV Merem until C/S available Follow CBC Follow temps MOnitor progress I will follow along with you Thank you for this consultation Explained plan to patient and caregiver
[2018-02-22] MEDS ORDERED: ASP: Other exception documentation: ( ) OTHER PRN (11:09)
[2018-02-22] MEDS: Propranolol LA 80 MG Capsule PO SCH (14:18)
[2018-02-22] MEDS: Gabapentin 100 MG Capsule PO SCH ×2 (14:18→21:42)
[2018-02-22] MEDS: Pantoprazole Sodium 20 MG DR Tablet PO SCH (14:18)
[2018-02-22] MEDS: Acyclovir 200 MG Capsule PO SCH ×2 (14:18→21:42)
--- NOTE | 2018-02-22 14:21 | ECG ---
Date Performed: 02/21/2018 Time Performed: 14:55:32 PTAGE: 77 years EKG: Baseline artifact Occasional PVC's nonspecific ST-T change slight right ventricular conduct ion disturbance since PREVIOUS TRACING , PVC's are new and baseline artifact is more prominent. PREVIOUS TRACIN 08/29/2016 08.16 DOCTOR: Gerard Merrill Interpretating Date/Time 02/22/2018 14:20:57
[2018-02-22] MEDS: Meropenem Inj 2,000 MG in Sodium Chlor 0.9% Inj 100 ML IV.SIG SCH ×2 (14:28→21:42)
--- NOTE | 2018-02-22 15:40 | P.PNIM ---
Subjective Interval history: DRAFT NOTE Physical Exam Vital signs: Last Vital Signs Temp 98.1 F 02/22/18 12:00 Pulse 84 02/22/18 12:00 Resp 16 02/22/18 12:00 BP 102/55 L 02/22/18 12:00 Pulse Ox 94 L 02/22/18 12:00 Narrative: GENERAL: This is a frail patient who appears older than stated age CARDIOVASCULAR: Regular rate and rhythm RESPIRATORY: Clear to auscultation. Breath sounds equal bilaterally. GASTROINTESTINAL: Abdomen soft, non-tender, nondistended. Normal active bowel sounds MUSCULOSKELETAL: Extremities without clubbing, cyanosis, or edema. NEURO: Alert & Oriented x4 to person, place, time, situation. Moves all ext x4 Results Labs CBC & Chem 7: 02/22/18 05:19 02/22/18 05:19 Assessment and Plan Plan This is a 77 year old female patient with a past medical history which includes : normochromic and normocytic anemia, CVA, Parkinson's disease, hyperlipidemia, gastroparesis, diverticulitis, GERD, OA, B12 deficiency, depression, osteoporosis, chronic pain syndrome received steroid injections to her lumbar spine through pain management and Multiple myeloma follows with Dr. Hinton. Patient is currently on Revlimid 10 mg daily 21 days on and 7 days off per patient and caregiver last dose of Revlimid was Saturday02/18/18. Patient currently lives alone, and a member of her religion checks on her and assist with care. Patient presents to the ER today with weakness and headache. Weakness likely related to UTI and current chemotherapy UTI - urine culture (02/21/18) --> gram negative rods - rocephin (02/21 - 02/22) Bacteremia -Blood Cx (02/21/18) gram negative rods 3/ bottles & E. Coli / bottles - comgmt with Infectious Disease - meopenem (02/22 - present) Headache Head CT 02/21/[address] scan of the brain compared to 2016. 2. Stable postsurgical changes with aneurysm clipping in the right mid parietal lobe. 3. No focal or acute intracranial hemorrhage. MRI Brain (02/22) Chronic small vessel ischemic and atrophic changes, postsurgical and aneurysm clipping right mid parietal not significantly changed since 2016 MRA Brain (02/22/18) Unremarkable study except for evidence for prior aneurysm clipping. - norco prn Right hydronephrosis Abdomen/Pelvis CT 02/21/18 1. There is moderate hydronephrosis in the right kidney and previously seen right renal stones are no longer seen. Numerous stones in the left kidney. 2. Compression fracture of L1 not changed since 08/2017, however not present on 07/2016. - Case d/w Urology, Dr. Giraldo (02/21/18). Appreciate input Unlikely obstructing stone. Constipation liely contributing - Soap Suds enemas ordered - repeat KUB in AM - continue IVF Multiple myeloma follows with Dr. Hinton Patient has completed 8 cycles of induction RVD and then was started on Revlimid 10 mg daily 21 days on and 7 days off last dose of Revlimid was Saturday02/18/18 Continue patient's home acyclovir 400 mg PO BID due to immunosuppression - Case d/w Hematology/Oncology (02/22), Dr. Diehl. He will consult. CVA Continue aspirin 81 mg PO daily Depression Continue home Lexapro Parkinson's disease Continue home pramipexole Hyperlipidemia Continue home lovastatin 40 mg PO daily GERD Continue home Omeprazole DVT prophylaxis with SCDs Progress Note: Quality VTE Deep Vein Thrombosis/Pulmonary Embolism Present on Admission: No
--- NOTE | 2018-02-22 18:12 | MB ---
cc: Gerard Diehl MD DATE: 02/22/2018 REASON FOR CONSULTATION: A 77-year-old female with multiple myeloma presenting with sepsis and pancytopenia. I am asked to see her because of the pancytopenia. PATIENT PROFILE: The current history is obtained by speaking with the patient, reviewing the chart and speaking with the patient's caregiver Rand. This patient is a 77-year-old female. She is and lives alone. She has a caregiver Rand who visits regularly. The patient has no children. She was born in [place]. She is retired and taught elementary school. She does not smoke and she does not drink. HISTORY OF PRESENT ILLNESS: The patient is a 77-year-old female who was diagnosed with multiple myeloma in 08/2016 when she had a biopsy of the right sacrum, which revealed plasma cells. This was followed by a bone marrow aspirate and biopsy on 09/21/2016 which revealed plasma cell myeloma with the production of a kappa light chain. At that time, the cellularity was 60% and plasma cells comprised 70% of the cellularity. The patient has been under the care of Dr. Hinton who is an oncologist. She is currently receiving Revlimid 10 mg for 21 of 28 days. She has had cytopenias related to the Revlimid. During the past several days, she became acutely weak. She was brought to the emergency room and found to have Gram-negative sepsis. A blood culture dated 02/21/2018 shows E. coli. A urine culture shows gram-negative rods. She has been placed on antibiotics and is presently receiving meropenem. I am asked to see her because of pancytopenia. On 02/22/2018, hemoglobin 9.5, white count 1000, platelets 61,000 with 69% neutrophils, total neutrophil count is 800. Her situation is complicated by a number of other infirmities. She has significant Parkinson's. She has a gross tremor. Her medications have recently been changed. In addition, she has had depression, gastroparesis, and chronic pain. She sees Dr. Sanders (pain specialist) and has had injections into the back. She also has had a history of cerebral hemorrhage and repair of a cerebral aneurysm in 11/2013. All of these events have left her more frail. PAST SURGICAL HISTORY: 1. Cerebral hemorrhage followed by craniotomy and aneurysmal clipping 11/2013. 2. Cholecystectomy. 3. Appendectomy. 4. Breast biopsy. 5. JULES-BSO. 6. Right knee replacement. 7. Tubal ligation. 8. Cystocele repair. 9. Cataract surgery. PAST MEDICAL HISTORY: 1. Multiple myeloma with an excellent response to therapy currently receiving Revlimid for 21 of 28 days and Xgeva monthly. 2. Stroke related to cerebral hemorrhage. 2. Parkinson's. 3. Gastroparesis. 4. Hyperlipidemia. 5. History of diverticulitis. 6. History of B12 deficiency. 7. History of osteoporosis. 8. Chronic pain syndrome, for which she sees Dr. Sanders and has had injections. ALLERGIES: MULTIPLE ALLERGIES, which can be found in the chart. FAMILY HISTORY: Noncontributory. REVIEW OF SYSTEMS: CONSTITUTIONAL: Generalized weakness. HEENT: Vision is poor. She has glasses. Hearing is fine. CARDIOVASCULAR: Occasional chest discomfort. RESPIRATORY: Mild exertional shortness of breath. GASTROINTESTINAL: A 20-pound weight loss over the past year and a half. GENITOURINARY: Urinary burning and frequency. MUSCULOSKELETAL: Pain in the lower back and left leg. NEUROLOGIC: Generalized weakness. Significant intention tremor. PHYSICAL EXAMINATION: GENERAL: Reveals a female, appearing older than her stated age. She needed help going from the bed to the bedside commode. She has a gross intention tremor. VITAL SIGNS: Blood pressure 102/60, respiratory rate is 18, pulse 80, afebrile, O2 saturation 94%. HEENT: Head is normocephalic. Sclerae and conjunctivae normal. Oropharynx is unremarkable. There is no cervical, supraclavicular, axillary or inguinal adenopathy. HEART: Regular rhythm. LUNGS: Clear, without rales, wheezes, or rhonchi. BREASTS: Without masses. ABDOMEN: Without hepatosplenomegaly or masses. EXTREMITIES: Trace edema. MUSCULOSKELETAL: No bone pain. NEUROLOGIC: Gross weakness. Gross tremor. ASSESSMENT AND PLAN: The patient is a frail 77-year-old female who has multiple myeloma. She has had by history an excellent response to Revlimid and currently takes Revlimid 10 mg 21 one of 28 days. I believe this accounts for her pancytopenia. She also has sepsis. RECOMMENDATIONS: 1. Ordinarily, I would not give her Neupogen for a neutrophil count of 800. Given that she has sepsis and the platelet count has fallen over the past 24 hours, I will give her Neupogen to accelerate the recovery of the neutrophil count. She will have a CBC and platelet count daily. When the neutrophil count is greater than 1000, I would stop the Neupogen. 2: Regarding the myeloma it appears that she is responding. Her Oncologist is Dr. Hinton. Her evaluation will be simple and will include quantification of light chains. She can continue Revlimid in the future and doses can be adjusted to prevent significant cytopenias. This will be up to Dr. Hinton. Gerard Diehl MD RW/ct , 05:34 PM , 05:46 PM MTDD
[2018-02-22] MEDS: Filgrastim Inj 300 MCG/ML Vial SQ SCH (18:49)
[2018-02-22] MEDS: Senna/Docusate Sodium 8.6/50 MG Tablet PO SCH (21:42)
[2018-02-23] MEDS: KCL 20 mEq/NACL 0.45% Inj 1,000 ML IV.CONT SCH ×2 (04:01→17:47)
[2018-02-23] MEDS: Meropenem Inj 2,000 MG in Sodium Chlor 0.9% Inj 100 ML IV.SIG SCH (05:19)
[2018-02-23 06:18] LABS: Baso % (Auto) 0.5 % (0.0-2.0); Eos % (Auto) 1.2 % (0.0-4.0); Hemoglobin 9.7 gm/dL (11.6-15.3); Lymph # (Auto) 0.2 th/mm3 (1.0-4.8); Lymph % (Auto) 12.4 % (9.0-44.0); Mean Corpuscular HGB Conc 33.5 % (32.0-36.0); Mean Corpuscular Hemoglobin 32.2 pg (27.0-34.0); Mean Corpuscular Volume 96.2 fL (80.0-100.0); Mean Platelet Volume 8.4 fL (7.0-11.0); Mono # (Auto) 0.1 th/mm3 (0.0-0.9); Mono % (Auto) 7.7 % (0.0-8.0); Neut # (Auto) 1.5 th/mm3 (1.8-7.7); Neut % (Auto) 78.2 % (16.0-70.0); Platelet Count 78 th/mm3 (150-450); Red Blood Count 3.01 mil/mm3 (4.00-5.30); Red Cell Distribution Width 17.5 % (11.6-17.2); White Blood Count 1.9 th/mm3 (4.0-11.0)
[2018-02-23 06:46] LABS: Calcium 7.4 mg/dL (8.5-10.1); Carbon Dioxide 24.5 meq/L (21.0-32.0); Magnesium 2.2 mg/dL (1.5-2.5); Potassium 3.7 meq/L (3.5-5.1)
[2018-02-23 07:03] LABS: Albumin 1.9 g/dL (3.4-5.0); Calcium-Albumin Corrected 9.1 mg/dL (8.5-10.1)
--- NOTE | 2018-02-23 09:50 | P.PNIM ---
Subjective Interval history: Patient continues to C/O pain at left TMJ joint. Pain improved with [place] Patient also c/o pain left hip Physical Exam Vital signs: Last Vital Signs Temp 98.1 F 02/23/18 08:00 Pulse 83 02/23/18 08:00 Resp 16 02/23/18 08:00 BP 123/78 02/23/18 08:00 Pulse Ox 95 02/23/18 08:00 Narrative: GENERAL: This is a frail patient who appears older than stated age CARDIOVASCULAR: Regular rate and rhythm RESPIRATORY: Clear to auscultation. Breath sounds equal bilaterally. GASTROINTESTINAL: Abdomen soft, non-tender, nondistended. Normal active bowel sounds MUSCULOSKELETAL: Extremities without clubbing, cyanosis, or edema. NEURO: Alert & Oriented x4 to person, place, time, situation. Moves all ext x4 Results Labs CBC & Chem 7: 02/23/18 04:44 02/23/18 04:44 Assessment and Plan Plan This is a 77 year old female patient with a past medical history which includes : normochromic and normocytic anemia, CVA, Parkinson's disease, hyperlipidemia, gastroparesis, diverticulitis, GERD, OA, B12 deficiency, depression, osteoporosis, chronic pain syndrome received steroid injections to her lumbar spine through pain management and Multiple myeloma follows with Dr. Hinton. Patient is currently on Revlimid 10 mg daily 21 days on and 7 days off per patient and caregiver last dose of Revlimid was Saturday02/18/18. Patient currently lives alone, and a member of her gnosticist checks on her and assist with care. Patient presents to the ER today with weakness and headache. Weakness likely related to UTI, bacteremia and current chemotherapy UTI Bacteremia UA reviewed consistent with UTI Urine culture growing gram negative rods Blood culture 3/4 bottles growing gram neg rods and 1/4 bottle growing E. coli ID consulted and also following patient. ID started Meropenem (02/22/18 - present), await further sensitivities Headache- appears to be more pain from left TMJ joint Patient had had TMJ surgery in the past. Recommended to patient and caregiver that she see dentist/oral maxillofacial surgery after DC Head CT 02/21/[address] scan of the brain compared to 2016. 2. Stable postsurgical changes with aneurysm clipping in the right mid parietal lobe. 3. No focal or acute intracranial hemorrhage. Given patient's hx of aneursym with clipping MRI/MRI ordered elizabeth reviewed Head MRA 02/22/18 Unremarkable study except for evidence for prior aneurysm clipping. Head MRI 02/22/18 Chronic small vessel ischemic and atrophic changes, postsurgical and aneurysm clipping right mid parietal not significantly changed since 2016 hydrocodone as needed for pain Right hydronephrosis Abdomen/Pelvis CT 02/21/18 1. There is moderate hydronephrosis in the right kidney and previously seen right renal stones are no longer seen. Numerous stones in the left kidney. 2. Compression fracture of L1 not changed since 08/2017, however not present on 07/2016. Consult urology, appreciate input Urology feels that large stool ball and gas are displacing bladder and right ureter soap suds enemas x 2 given 02/22/18 -> patient and caregiver report patient had large BM after enemas continue bowel regiment and miralax daily MOM x 1 now KUB 02/23/18 showed moderate amount of stool therapeutic barium enema ordered Multiple myeloma pancytopenia follows with Dr. Hinton Patient has completed 8 cycles of induction RVD and then was started on Revlimid 10 mg daily 21 days on and 7 days off last dose of Revlimid was Saturday02/18/18 Continue patient's home acyclovir 400 mg PO BID due to immunosuppression consult hematology/oncology, appreciate assistance neutrophil count of 800. Given that she has sepsis and the platelet count has fallen over the past 24 hours, Oncology started Neupogen to help the neutrophil count recover. CBC and platelet count daily. Oncology plans to stop Neupogen once the neutrophil count is greater than 1000. Case discussed with Dr. Diehl Left hip pain XR left hip ordered CVA Continue aspirin 81 mg PO daily Depression Continue home Lexapro Parkinson's disease Continue home pramipexole Hyperlipidemia Continue home lovastatin 40 mg PO daily GERD Continue home Omeprazole DVT prophylaxis with SCDs Progress Note: Quality VTE Deep Vein Thrombosis/Pulmonary Embolism Present on Admission: No
[2018-02-23] MEDS: Acyclovir 200 MG Capsule PO SCH ×2 (10:01→22:03)
[2018-02-23] MEDS: Pantoprazole Sodium 20 MG DR Tablet PO SCH (10:02)
[2018-02-23] MEDS: Senna/Docusate Sodium 8.6/50 MG Tablet PO SCH ×2 (10:03→22:03)
[2018-02-23] MEDS: Polyethylene Glycol 3350 17 GM Packet PO SCH (10:03)
[2018-02-23] MEDS: Gabapentin 100 MG Capsule PO SCH ×2 (10:03→22:04)
[2018-02-23 10:06] LABS: Eosinophils 2 % (0-4); Lymphocytes 4 % (9-44); Monocytes 8 % (0-8)
[2018-02-23 10:07] LABS: Platelet Morphology Normal (Normal); Toxic Granulation 1+
[2018-02-23 10:08] LABS: Ovalocytes 1+; Tear Drop Cells 1+
--- NOTE | 2018-02-23 10:40 | XR ---
EXAM DATE: 02/23/2018 10:35 AM EST AGE/SEX: 77 years / Female INDICATIONS: Constipation CLINICAL DATA: This is the patient's initial encounter. Patient reports that signs and symptoms have been present for 3 days and indicates a pain score of 0/10. MEDICAL/SURGICAL HISTORY: . : Aneurysm, intracranial. Arthritis. Parkinson's disease. Multiple myeloma. . Craniotomy. Appendectomy. Cholecystectomy. Aneurysm clipping. Appendectomy. TMJ surgery. COMPARISON: No prior exams available for comparison. FINDINGS: The bowel gas is nonspecific. There are no signs of obstruction or free air for technique. No definite calcified stones are identified for technique. Moderate stool is present throughout the colon. There is also lumbar scoliosis convexity towards the right and extensive degenerative change i n lumbar spine. CONCLUSION: Moderate amount of stool. Electronically signed by: Maria M Carlos MD Board Certified Radiologist 02/23/2018 10:39 AM EST
--- NOTE | 2018-02-23 12:32 | P.PNID ---
Subjective Remarks: Patient is a 77-year-old female, she lives alone, has a caregiver, presented to the hospital complaining of generalized weakness. She was also having some headache, but denies any neck pain or any photophobia. Patient has had problem with urinary tract infection in the past. She currently is complaining of dribbling and some dysuria over the last several days. She has history of kidney stones, and at one point had a stent on the right kidney and it was reportedly removed at least about a month or so ago. She had an episode of vomiting. She denies any respiratory complaint, sore throat. Patient has always had problem with constipation. Patient has known multiple myeloma, and getting Revlimid from Dr. Hinton. She is to get once a month blood work. There was blood work done on February 20, and her white count was down to 1.5. The caregiver was told that she will now need to get weekly blood work for closer monitoring. The CBC on January 23 showed a WBC count of 4.5. Patient also has Parkinson's and has problem with tremors, and she follows up with a neurologist. On presentation patient has been febrile. Her WBC is down to 1. Urinalysis has significant pyuria. CT of the abdomen and pelvis is showing evidence of right hydronephrosis, although stones were seen. She has kidney stones on the left side but no hydronephrosis seen. She has significant stool in her sigmoid. 2 blood cultures done on admission is now reported as growing gram- negative iram. She is currently on Rocephin. Infectious disease consultation has been requested to assist with evaluation and treatment. Notes reviewed Temps ok One large BM yesterday AXR today still with moderate stool in the colon BC and UC E coli WBC up to to 1.4 - ANC >`1000 Antibiotics: Merem Lines: PIV Past Medical History: Brain aneurysm Multiple myeloma Parkinsons Stroke Allergies/Adverse Reactions: Allergies acetaminophen Allergy (Severe, Verified 02/04/18 09:46) NONE PATIENT DENIES codeine Allergy (Severe, Verified 02/04/18 09:46) WAKEFULNESS INTERMEDIATE REACTION diazepam Allergy (Severe, Verified 02/04/18 09:46) HYPER INTERMEDIATE REACTION diclofenac Allergy (Severe, Verified 02/04/18 09:46) NAUSEA/VOMITING INTERMEDIATE REACTION etodolac Allergy (Severe, Verified 02/04/18 09:46) NAUSEA/VOMITING INTERMEDIATE REACTION flurbiprofen Allergy (Severe, Verified 02/04/18 09:46) NAUSEA/VOMITING INTERMEDIATE REACTION hydrocodone Allergy (Severe, Verified 02/04/18 09:46) Anxiety NAUSEA AND VOMITING ; INTERMEDIATE REACTION ibuprofen Allergy (Severe, Verified 02/04/18 09:46) NAUSEA/VOMITING INTERMEDIATE REACTION indomethacin Allergy (Severe, Verified 02/04/18 09:46) NAUSEA/VOMITING INTERMEDIATE REACTION ketoprofen Allergy (Severe, Verified 02/04/18 09:46) NAUSEA/VOMITING INTERMEDIATE REACTION ketorolac Allergy (Severe, Verified 02/04/18 09:46) NAUSEA/VOMITING INTERMEDIATE REACTION levofloxacin Allergy (Severe, Verified 02/04/18 09:46) NAUSEA/VOMITING INTERMEDIATE REACTION midazolam Allergy (Severe, Verified 02/04/18 09:46) Restlessness INTERMEDIATE REACTION naproxen Allergy (Severe, Verified 02/04/18 09:46) NAUSEA/VOMITING INTERMEDIATE REACTION oxaprozin Allergy (Severe, Verified 02/04/18 09:46) NAUSEA/VOMITING INTERMEDIATE REACTION Sulfa (Sulfonamide Antibiotics) Allergy (Severe, Verified 02/04/18 09:46) NAUSEA/VOMITING MAKES PT HYPERACTIVE - INTERMEDIATE REACTION adhesive Adverse Reaction (Intermediate, Verified 02/04/18 09:46) HIVES CLOTH TAPE Allergy (Intermediate, Uncoded 02/04/18 09:46) Rash AND BLISTERS Objective Vital Signs 02/22/18 16:00 02/22/18 20:00 02/23/18 00:00 Temperature 99.4 F 98.0 F 97.3 F L Pulse Rate 120 H 100 H 84 Respiratory Rate 24 24 22 Blood Pressure 120/67 130/58 L 113/55 L Pulse Oximetry 97 98 92 L 02/23/18 04:25 02/23/18 08:00 Temperature 98.6 F 98.1 F Pulse Rate 88 83 Respiratory Rate 22 16 Blood Pressure 119/64 123/78 Pulse Oximetry 95 95 Intake & Output 02/22/18 02/23/18 02/23/18 18:59 06:59 18:59 Intake Total 1001 / 1002 320 / 320 Balance 1002 / 1002 320 / 320 Intake: IV 1001 / 1001 200 / 200 Potassium Chlor 20 mEq/NACL 0. 902 / 902 45% Inj 1,000 ML @ 84 mls/hr IV .CONT .[id number] [facility] Rx#:[id number] Merrem Inj 2,000 MG In NS Inj 100 / 100 200 / 200 100 ML @ 200 mls/hr IV.SIG Q8H [facility] Rx#:[id number] Oral 120 / 120 Other: # Voids 1 4 Date of Last Bowel Movement 02/22/18 02/22/18 # Bowel Movements 1 1 02/21/18 16:15 Clean Catch Urine Urine Culture - Final Escherichia coli 02/21/18 14:55 Blood - Peripheral Aerobic Blood Culture - Preliminary Escherichia coli 02/21/18 14:55 Blood - Peripheral Anaerobic Blood Culture - Preliminary Escherichia coli 02/21/18 14:50 Blood - Peripheral Aerobic Blood Culture - Preliminary Escherichia coli 02/21/18 14:50 Blood - Peripheral Anaerobic Blood Culture - Preliminary Escherichia coli 02/21/18 16:20 Nasal Wash Influenza Types A,B Antigen - Final Negative for FLU A and B antigen Infection due to influenza A or B cannot be ruled out since the antigen present in the sample may be below the detection limit of the test. Lab - Hematology Results 02/21/18 02/22/18 02/23/18 14:50 05:19 04:44 WBC 1.1 L 1.0 L 1.9 L D RBC 3.18 L 2.99 L 3.01 L Hgb 10.4 L 9.5 L 9.7 L Hct 30.6 L 29.1 L 29.0 L MCV 96.2 97.2 96.2 MCH 32.8 31.9 32.2 MCHC 34.1 32.8 33.5 RDW 17.2 17.5 H 17.5 H Plt Count 73 L 61 L 78 L MPV 7.7 8.4 8.4 Prelim Diff (Auto) Slide review pending Slide review pending Slide review pending Neut % (Auto) 77.7 H 69.3 78.2 H Lymph % (Auto) 10.4 19.4 12.4 Webb % (Auto) 11.3 H 9.0 H 7.7 Eos % (Auto) 0.4 2.0 1.2 Baso % (Auto) 0.2 0.3 0.5 Neut # (Auto) 0.8 L 0.7 L 1.5 L Lymph # (Auto) 0.1 L 0.2 L 0.2 L Webb # (Auto) 0.1 0.1 0.1 Eos # (Auto) 0.0 0.0 0.0 Baso # (Auto) 0.0 0.0 0.0 WBC Differential Manual diff final Manual diff final Manual diff final Seg Neuts % (Manual) 65 39 72 H Band Neuts % (Manual) 12 H 37 H 14 H Lymphocytes % (Manual) 12 18 4 L Monocytes % (Manual) 11 H 2 8 Eosinophils % (Manual) 3 2 Basophils % (Manual) 1 Abs Neuts (Manual) 0.8 L 0.8 L 1.6 L Differential Comment . . . Toxic Granulation 2+ H 1+ H Platelet Estimate Low L Low L Low L Platelet Morphology Normal Normal Normal Tear Drop Cells 1+ H Ovalocytes 1+ H 1+ H 1+ H Lab - Chemistry Results 02/21/18 02/21/18 02/22/18 14:50 14:50 05:19 Sodium 139 143 Potassium 3.1 L 4.1 D Chloride 108 H 113 H Carbon Dioxide 22.3 23.9 Anion Gap 9 6 BUN 21 H 14 Creatinine 1.02 H 0.70 Estimated GFR 53 L 81 L Random Glucose 125 H 79 Lactic Acid 1.4 Calcium 7.7 L 7.2 L* Calcium Adj for Albumin 8.8 Magnesium 2.0 Total Bilirubin 0.7 AST 32 ALT 28 Alkaline Phosphatase 56 Total Creatine Kinase 98 Troponin I 0.04 Total Protein 5.9 L Albumin 2.4 L 2.0 L Lipase 44 L 02/23/18 04:44 Sodium 143 Potassium 3.7 Chloride 113 H Carbon Dioxide 24.5 Anion Gap 6 BUN 11 Creatinine 0.82 Estimated GFR 68 L Random Glucose 106 Lactic Acid Calcium 7.4 L* Calcium Adj for Albumin 9.1 Magnesium 2.2 Total Bilirubin AST ALT Alkaline Phosphatase Total Creatine Kinase Troponin I Total Protein Albumin 1.9 L Lipase Imaging: ITS Impressions Abdomen/Pelvis CT 02/21/18 14:43 CONCLUSION: 1. There is moderate hydronephrosis in the right kidney and previously seen right renal stones are no longer seen. Numerous stones in the left kidney. 2. Compression fracture of L1 not changed since 08/2017, however not present on 07/2016. Chest X-Ray 02/21/18 14:43 CONCLUSION: Negative for acute process Head CT 02/21/18 14:43 CONCLUSION: 1. Stable CT scan of the brain compared to 2016. 2. Stable postsurgical changes with aneurysm clipping in the right mid parietal lobe. 3. No focal or acute intracranial hemorrhage. . Head MRI 02/22/18 00:00 CONCLUSION: Chronic small vessel ischemic and atrophic changes, postsurgical and aneurysm clipping right mid parietal not significantly changed since 2016 . Head MRA 02/22/18 00:00 CONCLUSION: 1. Unremarkable study except for evidence for prior aneurysm clipping. Abdomen X-Ray 02/23/18 08:00 CONCLUSION: Moderate amount of stool. Physical Exam: GENERAL: awake and alert, not in respiratory distress. SKIN: Warm and dry. No generalized rash HEAD: Atraumatic. Normocephalic. No temporal wasting, or tenderness. EYES: [place] conjunctiva. No petechia or hemorrhage. No scleral icterus. No injection or drainage. EARS, NOSE AND THROAT: Mucous membranes pink and moist. No oral lesions noted. No exudate. No oral thrush. NECK: Trachea midline. Supple and not tender, no meningeal signs CARDIOVASCULAR: Regular rate and rhythm. No murmurs, rubs or gallops heard RESPIRATORY: Clear to auscultation. Breath sounds equal bilaterally. No rales , wheezing or rhonchi ABDOMEN: Soft, nondistended, has tenderness in lower quadrants, no guarding or rebound. Bowel sounds present and normoactive. EXTREMITIES: No clubbing, cyanosis, or edema. No joint effusion, has good ROM. No calf tenderness. Well perfused and warm. NEUROLOGICAL: Awake and alert. No facial asymmetry. Has tremors at rest PSYCHIATRIC: Normal affect, calm and cooperative. LINE: No evidence of infection Assessment and Plan - Plan Impression E coli sepsis due to urosepsis, has R hydro and stones in L kidney, no obstruction Neutropenia, improving - received neupogen Multiple myeloma, on revlimid Parkinsons Chronic back pain Chronic constipation - felt by urologist to be causing obstruction to R Allergy to Levaquin and Sulfa Recommendation Repeat BC Stop IV Merem IV Cefepime Follow CBC Follow temps MOnitor progress Rx constipation US kidneys once she has more stool to reevaluate the hydronephrosis Explained plan to patient and caregiver D/W RN
--- NOTE | 2018-02-23 13:58 | P.PNONC ---
Subjective Interval history: Feeling a little stronger today. Left hip is painful. Objective Vital Signs/Intake & Output: Vital Signs 02/22/18 16:00 02/22/18 20:00 02/23/18 00:00 Temperature 99.4 F 98.0 F 97.3 F L Pulse Rate 120 H 100 H 84 Respiratory Rate 24 24 22 Blood Pressure 120/67 130/58 L 113/55 L Pulse Oximetry 97 98 92 L 02/23/18 04:25 02/23/18 08:00 02/23/18 12:00 Temperature 98.6 F 98.1 F 98 F Pulse Rate 88 83 90 Respiratory Rate 22 16 18 Blood Pressure 119/64 123/78 127/60 Pulse Oximetry 95 95 98 Intake & Output 02/22/18 02/23/18 02/23/18 18:59 06:59 18:59 Intake Total 1002 / 1002 320 / 320 Balance 1002 / 1002 320 / 320 Intake: IV 1002 / 1002 200 / 200 Potassium Chlor 20 mEq/NACL 0. 902 / 902 45% Inj 1,000 ML @ 84 mls/hr IV .CONT .[id number] [facility] Rx#:[id number] Merrem Inj 2,000 MG In NS Inj 100 / 100 200 / 200 100 ML @ 200 mls/hr IV.SIG Q8H [facility] Rx#:[id number] Oral 120 / 120 Other: # Voids 1 4 Date of Last Bowel Movement 02/22/18 02/22/18 # Bowel Movements 1 1 Result Diagrams: 02/23/18 04:44 02/23/18 04:44 Laboratory Results: Laboratory Results - last 24 hr 02/21/18 02/23/18 02/23/18 16:15 04:44 04:44 WBC 1.9 L D RBC 3.01 L Hgb 9.7 L Hct 29.0 L MCV 96.2 MCH 32.2 MCHC 33.5 RDW 17.5 H Plt Count 78 L MPV 8.4 Prelim Diff (Auto) Slide review pending Neut % (Auto) 78.2 H Lymph % (Auto) 12.4 [place] % (Auto) 7.7 Eos % (Auto) 1.2 Baso % (Auto) 0.5 Neut # (Auto) 1.5 L Lymph # (Auto) 0.2 L [place] # (Auto) 0.1 Eos # (Auto) 0.0 Baso # (Auto) 0.0 WBC Differential Manual diff final Seg Neuts % (Manual) 72 H Band Neuts % (Manual) 14 H Lymphocytes % (Manual) 4 L Monocytes % (Manual) 8 Eosinophils % (Manual) 2 Abs Neuts (Manual) 1.6 L Differential Comment . Toxic Granulation 1+ H Platelet Estimate Low L Platelet Morphology Normal Tear Drop Cells 1+ H Ovalocytes 1+ H Sodium 143 Potassium 3.7 Chloride 113 H Carbon Dioxide 24.5 Anion Gap 6 BUN 11 Creatinine 0.82 Estimated GFR 68 L Random Glucose 106 Calcium 7.4 L* Calcium Adj for Albumin 9.1 Magnesium 2.2 Albumin 1.9 L Urine Color Yellow Urine Clarity Cloudy H Urine pH 5.0 Ur Specific [place] 1.026 Urine Protein 100 H Urine Glucose (UA) Negative Urine Ketones Trace H Urine Occult Blood Moderate H Urine Nitrate Positive H Urine Bilirubin Negative Urine Urobilinogen Less than 2 Ur Leukocyte Esterase Large H Urine RBC 10 H Urine WBC Ur Squamous Epith Cells 2 Urine Bacteria Occasional H Hyaline Casts 7 Micro UA Comment Culture indicated Urine Culture Comments Culture indicated Culture Results: Microbiology 02/21/18 16:15 Urine Culture - Final Clean Catch Urine Escherichia coli 02/21/18 14:55 Aerobic Blood Culture - Preliminary Blood - Peripheral Escherichia coli Anaerobic Blood Culture - Preliminary Escherichia coli 02/21/18 14:50 Aerobic Blood Culture - Preliminary Blood - Peripheral Escherichia coli Anaerobic Blood Culture - Preliminary Escherichia coli 02/21/18 16:20 Influenza Types A,B Antigen - Final Nasal Wash Negative for FLU A and B antigen Infection due to influenza A or B cannot be ruled out since the antigen present in the sample may be below the detection limit of the test. Imaging Studies: Impressions Abdomen X-Ray 02/23/18 08:00 CONCLUSION: Moderate amount of stool. Medications: Active Medications Generic Name Dose Route Start Last Admin Trade Name Freq PRN Reason Stop Dose Admin Hydrocodone Bitart/Acetaminophen 1 tab 02/22/18 17:41 02/23/18 09:30 [place] 5/325 PO 1 tab Q4HR PRN Administration PAIN SCALE 1 TO 10 Acyclovir 400 mg 02/21/18 21:00 02/23/18 10:01 Zovirax PO 400 mg BID [facility] Administration Aspirin 81 mg 02/22/18 09:00 02/23/18 10:01 Ecotrin PO 81 mg DAILY [facility] Administration Escitalopram Oxalate 20 mg 02/22/18 09:00 02/23/18 10:02 Lexapro PO 20 mg DAILY [facility] Administration Filgrastim 300 mcg 02/22/18 18:00 02/22/18 18:49 Neupogen Inj SQ 300 mcg DAILY@1800 [facility] Administration Gabapentin 100 mg 02/21/18 21:00 02/23/18 10:03 Neurontin PO 100 mg BID [facility] Administration Potassium Chloride/Sodium Chloride 1,000 mls @ 84 mls/hr 02/21/18 17:00 02/23 04:01 Potassium Chlor 20 Meq/Nacl 0.45% Inj IV.CONT 84 mls/hr .[id number] [facility] Administration Lorazepam 0.5 mg 02/21/18 17:21 02/22/18 21:43 Ativan Inj IV.PUSH 0.5 mg Q6H PRN Administration AGITATION AND/OR HALLUCINATION Pantoprazole Sodium 20 mg 02/22/18 09:00 02/23/18 10:02 Protonix PO 20 mg DAILY [facility] Administration Polyethylene Glycol 17 gm 02/23/18 09:00 02/23/18 10:03 Miralax PO 17 gm DAILY [facility] Administration Pramipexole Dihydrochloride 0.125 mg 02/22/18 09:00 02/23/18 10:03 Mirapex PO 0.125 mg TID [facility] Administration Pravastatin Sodium 40 mg 02/21/18 21:00 02/23/18 10:03 Pravachol PO 40 mg BID [facility] Administration Senna/Docusate Sodium 1 tab 02/22/18 21:00 02/23/18 10:03 Azra-Colace PO 1 tab BID [facility] Administration Sodium Chloride 2 ml 02/21/18 21:00 02/23/18 10:04 Ns Flush IV.FLUSH 2 ml BID [facility] Administration Objective Remarks: GENERAL: Frail but not in acute distress SKIN: Warm and dry. HEAD: Normocephalic. EYES: No scleral icterus. No injection or drainage. NECK: Supple, trachea midline. No JVD or lymphadenopathy. LYMPHATIC: No adenopathy. CARDIOVASCULAR: Regular rate and rhythm without murmurs. RESPIRATORY: Breath sounds equal bilaterally. No accessory muscle use. GASTROINTESTINAL: Abdomen soft, non-tender, nondistended. EXTREMITIES: No cyanosis, or edema. MUSCULOSKELETAL: Poor muscle tone, tenderness left hip. NEUROLOGICAL: Generalized weakness PSYCHIATRIC: Appropriate mood and affect; insight and judgment normal. Assessment/Plan - Plan 1: Neutrophil count increasing. We will continue Neupogen for another day or 2 and then discontinue the Neupogen. Infection appears to be resolving as temp down. 2: Patient has tenderness in the left hip. Given the history of myeloma will order a left hip film. 3: Myeloma on Revlimid. Revlimid held. Further decisions regarding therapy and resumption of Revlimid will be made by her oncologist Dr. Hinton following discharge.
[2018-02-23] MEDS ORDERED: Calcium Carbonate 500 MG Tablet PO SCH (14:00)
[2018-02-23] MEDS ORDERED: Filgrastim Inj 300 MCG/ML Vial SQ SCH (14:00)
[2018-02-23] MEDS: Propranolol LA 60 MG Capsule PO SCH (15:12)
[2018-02-23] MEDS: Filgrastim Inj 300 MCG/ML Vial SQ SCH (17:37)
[2018-02-23] MEDS: Propranolol LA 80 MG Capsule PO SCH (17:48)
--- NOTE | 2018-02-23 18:32 | XR ---
EXAM DATE: 02/23/2018 6:27 PM EST AGE/SEX: 77 years / Female INDICATIONS: Left hip pain. CLINICAL DATA: This is the patient's subsequent encounter. Patient reports that signs and symptoms h ave been present for 2 days and indicates a pain score of 7/10. MEDICAL/SURGICAL HISTORY: . Aneurysm, intracranial. Arthritis. Parkinson's disease. Multiple my eloma. . Craniotomy. Appendectomy. Cholecystectomy. Aneurysm clipping. Appendectomy. TMJ surgery. COMPARISON: [facility], HIP RIGHT (AP&LAT 2/3VWS) WO AP PELVIS, 09/05/2015. . FINDINGS: 3 views of the left hip and pelvis. Bone alignment within normal limits. No evidence of fracture. Dif fuse bone demineralization. No evidence of joint narrowing. CONCLUSION: No evidence of fracture. Electronically signed by: Vince Emerson MD Board Certified Radiologist 02/23/2018 6:31 PM EST
[2018-02-24 04:17] LABS: Baso % (Auto) 0.5 % (0.0-2.0); Eos % (Auto) 1.7 % (0.0-4.0); Hematocrit 30.6 % (35.0-46.0); Hemoglobin 9.9 gm/dL (11.6-15.3); Lymph # (Auto) 0.4 th/mm3 (1.0-4.8); Lymph % (Auto) 14.8 % (9.0-44.0); Mean Corpuscular HGB Conc 32.5 % (32.0-36.0); Mean Corpuscular Volume 98.4 fL (80.0-100.0); Mean Platelet Volume 8.1 fL (7.0-11.0); Mono # (Auto) 0.2 th/mm3 (0.0-0.9); Platelet Count 79 th/mm3 (150-450); Red Blood Count 3.11 mil/mm3 (4.00-5.30); Red Cell Distribution Width 17.5 % (11.6-17.2); White Blood Count 2.7 th/mm3 (4.0-11.0)
[2018-02-24 04:29] LABS: Anion Gap 3 meq/L (5-15); Blood Urea Nitrogen 11 mg/dL (7-18); Calcium 7.8 mg/dL (8.5-10.1); Carbon Dioxide 24.7 meq/L (21.0-32.0); Chloride 116 meq/L (98-107); Glomerular Filtration Rate Greater Than 89 mL/min (>89); Glucose,Random 92 mg/dL (74-106); Potassium 4.5 meq/L (3.5-5.1); Sodium 144 meq/L (136-145)
[2018-02-24 04:49] LABS: Platelet Morphology Normal (Normal)
[2018-02-24 04:50] LABS: Spherocytes 1+
[2018-02-24] MEDS: KCL 20 mEq/NACL 0.45% Inj 1,000 ML IV.CONT SCH (06:37)
--- NOTE | 2018-02-24 08:40 | P.PNIM ---
Subjective Interval history: Patient resting and appears comfortable when I entered the room awakens easily and c/o left ear/jaw pain Physical Exam Vital signs: Last Vital Signs Temp 98.8 F 02/24/18 03:10 Pulse 68 02/24/18 03:10 Resp 17 02/24/18 03:10 BP 119/58 L 02/24/18 03:10 Pulse Ox 98 02/24/18 03:10 Narrative: GENERAL: This is a frail patient who appears older than stated age EARS: bilateral ears cerumen present, left ear cerumen obstructing view on TM, right ear TM intact CARDIOVASCULAR: Regular rate and rhythm RESPIRATORY: Clear to auscultation. Breath sounds equal bilaterally. GASTROINTESTINAL: Abdomen soft, non-tender, nondistended. Normal active bowel sounds MUSCULOSKELETAL: Extremities without clubbing, cyanosis, or edema. NEURO: Alert & Oriented x4 to person, place, time, situation. Moves all ext x4 Results Labs CBC & Chem 7: 02/25/18 04:41 02/24/18 03:55 Assessment and Plan Plan This is a 77 year old female patient with a past medical history which includes : normochromic and normocytic anemia, CVA, Parkinson's disease, hyperlipidemia, gastroparesis, diverticulitis, GERD, OA, B12 deficiency, depression, osteoporosis, chronic pain syndrome received steroid injections to her lumbar spine through pain management and Multiple myeloma follows with Dr. Hinton. Patient is currently on Revlimid 10 mg daily 21 days on and 7 days off per patient and caregiver last dose of Revlimid was Saturday02/18/18. Patient currently lives alone, and a member of her nondenominational checks on her and assist with care. Patient presents to the ER today with weakness and headache. Weakness likely related to UTI, bacteremia and current chemotherapy UTI Bacteremia UA reviewed consistent with UTI Urine culture growing E coli Blood culture / growing E. coli repeat blood cultures pending ID consulted and also following, appreciate input ID started Cefepime (02/22/18 - present), await further sensitivities Headache- appears to be more pain from left TMJ joint Patient had had TMJ surgery in the past. Recommended to patient and caregiver that she see dentist/oral maxillofacial surgery after DC Head CT 02/21/[address] scan of the brain compared to 2016. 2. Stable postsurgical changes with aneurysm clipping in the right mid parietal lobe. 3. No focal or acute intracranial hemorrhage. Given patient's hx of aneursym with clipping MRI/MRI ordered elizabeth reviewed Head MRA 02/22/18 Unremarkable study except for evidence for prior aneurysm clipping. Head MRI 02/22/18 Chronic small vessel ischemic and atrophic changes, postsurgical and aneurysm clipping right mid parietal not significantly changed since 2015 hydrocodone as needed for pain Debrox bilateral ears Right hydronephrosis Abdomen/Pelvis CT 02/21/18 1. There is moderate hydronephrosis in the right kidney and previously seen right renal stones are no longer seen. Numerous stones in the left kidney. 2. Compression fracture of L1 not changed since 08/2017, however not present on 07/2016. Consult urology, appreciate input Urology feels that large stool ball and gas are displacing bladder and right ureter soap suds enemas x 2 given 02/22/18 -> patient and caregiver report patient had large BM after enemas continue bowel regiment and miralax daily MOM 02/23/18 KUB 02/23/18 showed moderate amount of stool therapeutic Gastrografin enema pending Multiple myeloma pancytopenia follows with Dr. Hinton Patient has completed 8 cycles of induction RVD and then was started on Revlimid 10 mg daily 21 days on and 7 days off last dose of Revlimid was Saturday02/18/18 Continue patient's home acyclovir 400 mg PO BID due to immunosuppression consult hematology/oncology, appreciate assistance neutrophil count of 800. Given that she has sepsis and the platelet count has fallen over the past 24 hours, Oncology started Neupogen to help the neutrophil count recover. CBC and platelet count daily. Oncology plans to stop Neupogen once the neutrophil count is greater than 1000. Case discussed with Dr. Diehl 02/23/18 Left hip pain Hip X-Ray 02/23/18 No evidence of fracture. Per patient left hip pain is chronic continue home [place] as needed for pain CVA Continue aspirin 81 mg PO daily Depression Continue home Lexapro Parkinson's disease Continue home pramipexole Hyperlipidemia Continue home lovastatin 40 mg PO daily GERD Continue home Omeprazole DVT prophylaxis with SCDs Attending Attestation Patient examined. Assessment and plan formulated with Isaura Che PA-C. I agree with the above. Progress Note: Quality VTE Deep Vein Thrombosis/Pulmonary Embolism Present on Admission: No
--- NOTE | 2018-02-24 09:50 | P.PNID ---
Subjective Remarks: Patient is a 77-year-old female, she lives alone, has a caregiver, presented to the hospital complaining of generalized weakness. She was also having some headache, but denies any neck pain or any photophobia. Patient has had problem with urinary tract infection in the past. She currently is complaining of dribbling and some dysuria over the last several days. She has history of kidney stones, and at one point had a stent on the right kidney and it was reportedly removed at least about a month or so ago. She had an episode of vomiting. She denies any respiratory complaint, sore throat. Patient has always had problem with constipation. Patient has known multiple myeloma, and getting Revlimid from Dr. Hinton. She is to get once a month blood work. There was blood work done on February 20, and her white count was down to 1.5. The caregiver was told that she will now need to get weekly blood work for closer monitoring. The CBC on January 23 showed a WBC count of 4.5. Patient also has Parkinson's and has problem with tremors, and she follows up with a neurologist. On presentation patient has been febrile. Her WBC is down to 1. Urinalysis has significant pyuria. CT of the abdomen and pelvis is showing evidence of right hydronephrosis, although stones were seen. She has kidney stones on the left side but no hydronephrosis seen. She has significant stool in her sigmoid. 2 blood cultures done on admission is now reported as growing gram- negative iram. She is currently on Rocephin. Infectious disease consultation has been requested to assist with evaluation and treatment. Notes reviewed Temps ok Going to radiology dept for gastrogaffin enema Last AXr with moderate stool in colon WBC up to 2.7 Fup BC negative BC and UC E coli Antibiotics: Cefepime Lines: PIV Past Medical History: Brain aneurysm Multiple myeloma Parkinsons Stroke Allergies/Adverse Reactions: Allergies acetaminophen Allergy (Severe, Verified 02/04/18 09:46) NONE PATIENT DENIES codeine Allergy (Severe, Verified 02/04/18 09:46) WAKEFULNESS INTERMEDIATE REACTION diazepam Allergy (Severe, Verified 02/04/18 09:46) HYPER INTERMEDIATE REACTION diclofenac Allergy (Severe, Verified 02/04/18 09:46) NAUSEA/VOMITING INTERMEDIATE REACTION etodolac Allergy (Severe, Verified 02/04/18 09:46) NAUSEA/VOMITING INTERMEDIATE REACTION flurbiprofen Allergy (Severe, Verified 02/04/18 09:46) NAUSEA/VOMITING INTERMEDIATE REACTION hydrocodone Allergy (Severe, Verified 02/04/18 09:46) Anxiety NAUSEA AND VOMITING ; INTERMEDIATE REACTION ibuprofen Allergy (Severe, Verified 02/04/18 09:46) NAUSEA/VOMITING INTERMEDIATE REACTION indomethacin Allergy (Severe, Verified 02/04/18 09:46) NAUSEA/VOMITING INTERMEDIATE REACTION ketoprofen Allergy (Severe, Verified 02/04/18 09:46) NAUSEA/VOMITING INTERMEDIATE REACTION ketorolac Allergy (Severe, Verified 02/04/18 09:46) NAUSEA/VOMITING INTERMEDIATE REACTION levofloxacin Allergy (Severe, Verified 02/04/18 09:46) NAUSEA/VOMITING INTERMEDIATE REACTION midazolam Allergy (Severe, Verified 02/04/18 09:46) Restlessness INTERMEDIATE REACTION naproxen Allergy (Severe, Verified 02/04/18 09:46) NAUSEA/VOMITING INTERMEDIATE REACTION oxaprozin Allergy (Severe, Verified 02/04/18 09:46) NAUSEA/VOMITING INTERMEDIATE REACTION Sulfa (Sulfonamide Antibiotics) Allergy (Severe, Verified 02/04/18 09:46) NAUSEA/VOMITING MAKES PT HYPERACTIVE - INTERMEDIATE REACTION adhesive Adverse Reaction (Intermediate, Verified 02/04/18 09:46) HIVES CLOTH TAPE Allergy (Intermediate, Uncoded 02/04/18 09:46) Rash AND BLISTERS Objective Vital Signs 02/23/18 12:00 02/23/18 16:00 02/23/18 19:57 Temperature 98 F 98.9 F 98.1 F Pulse Rate 90 120 H 72 Respiratory Rate 18 20 19 Blood Pressure 127/60 114/54 L 99/50 L Pulse Oximetry 98 98 94 L 02/23/18 23:16 02/24/18 03:10 Temperature 97.5 F L 98.8 F Pulse Rate 74 68 Respiratory Rate 17 17 Blood Pressure 116/58 L 119/58 L Pulse Oximetry 95 98 Intake & Output 02/23/18 02/24/18 02/24/18 18:59 06:59 18:59 Intake Total 2280 / 2280 1100 / 1100 Balance 2280 / 2280 1100 / 1100 Weight 63.5 kg Intake: IV 1100 / 1100 1100 / 1100 Potassium Chlor 20 mEq/NACL 0. 1000 / 1000 1000 / 1000 45% Inj 1,000 ML @ 84 mls/hr IV .CONT .[id number] [facility] Rx#:[id number] Maxipime Inj 2,000 MG In NS Inj 100 / 100 100 / 100 100 ML @ 200 mls/hr IV.SIG Q12H [facility] Rx#:[id number] Oral 1180 / 1180 0 / 0 Other: # Voids 5 6 Date of Last Bowel Movement 02/22/18 02/22/18 # Bowel Movements 0 2 02/23/18 12:00 Blood - Peripheral Aerobic Blood Culture - Pending 02/23/18 12:00 Blood - Peripheral Anaerobic Blood Culture - Pending 02/23/18 12:15 Blood - Peripheral Aerobic Blood Culture - Pending 02/23/18 12:15 Blood - Peripheral Anaerobic Blood Culture - Pending 02/21/18 16:15 Clean Catch Urine Urine Culture - Final Escherichia coli 02/21/18 14:55 Blood - Peripheral Aerobic Blood Culture - Preliminary Escherichia coli 02/21/18 14:55 Blood - Peripheral Anaerobic Blood Culture - Preliminary Escherichia coli 02/21/18 14:50 Blood - Peripheral Aerobic Blood Culture - Preliminary Escherichia coli 02/21/18 14:50 Blood - Peripheral Anaerobic Blood Culture - Preliminary Escherichia coli 02/21/18 16:20 Nasal Wash Influenza Types A,B Antigen - Final Negative for FLU A and B antigen Infection due to influenza A or B cannot be ruled out since the antigen present in the sample may be below the detection limit of the test. Lab - Hematology Results 02/23/18 02/24/18 04:44 03:55 WBC 1.9 L D 2.7 L RBC 3.01 L 3.11 L Hgb 9.7 L 9.9 L Hct 29.0 L 30.6 L MCV 96.2 98.4 MCH 32.2 32.0 MCHC 33.5 32.5 RDW 17.5 H 17.5 H Plt Count 78 L 79 L MPV 8.4 8.1 Prelim Diff (Auto) Slide review pending Slide review pending Neut % (Auto) 78.2 H 75.0 H Lymph % (Auto) 12.4 14.8 [place] % (Auto) 7.7 8.0 Eos % (Auto) 1.2 1.7 Baso % (Auto) 0.5 0.5 Neut # (Auto) 1.5 L 2.0 Lymph # (Auto) 0.2 L 0.4 L [place] # (Auto) 0.1 0.2 Eos # (Auto) 0.0 0.0 Baso # (Auto) 0.0 0.0 WBC Differential Manual diff final . Diff Scan Auto diff confirmed Seg Neuts % (Manual) 72 H Band Neuts % (Manual) 14 H Lymphocytes % (Manual) 4 L Monocytes % (Manual) 8 Eosinophils % (Manual) 2 Abs Neuts (Manual) 1.6 L Differential Comment . . Toxic Granulation 1+ H Platelet Estimate Low L Low L Platelet Morphology Normal Normal Spherocytes 1+ H Tear Drop Cells 1+ H Ovalocytes 1+ H Lab - Chemistry Results 02/23/18 02/24/18 04:44 03:55 Sodium 143 144 Potassium 3.7 4.5 D Chloride 113 H 116 H Carbon Dioxide 24.5 24.7 Anion Gap 6 3 L BUN 11 11 Creatinine 0.82 0.60 Estimated GFR 68 L Greater than 89 Random Glucose 106 92 Calcium 7.4 L* 7.8 L Calcium Adj for Albumin 9.1 Magnesium 2.2 Albumin 1.9 L Imaging: ITS Impressions Abdomen/Pelvis CT 02/21/18 14:43 CONCLUSION: 1. There is moderate hydronephrosis in the right kidney and previously seen right renal stones are no longer seen. Numerous stones in the left kidney. 2. Compression fracture of L1 not changed since 08/2017, however not present on 07/2016. Chest X-Ray 02/21/18 14:43 CONCLUSION: Negative for acute process Head CT 02/21/18 14:43 CONCLUSION: 1. Stable CT scan of the brain compared to 2016. 2. Stable postsurgical changes with aneurysm clipping in the right mid parietal lobe. 3. No focal or acute intracranial hemorrhage. . Head MRI 02/22/18 00:00 CONCLUSION: Chronic small vessel ischemic and atrophic changes, postsurgical and aneurysm clipping right mid parietal not significantly changed since 2016 . Head MRA 02/22/18 00:00 CONCLUSION: 1. Unremarkable study except for evidence for prior aneurysm clipping. Hip X-Ray 02/23/18 00:00 CONCLUSION: No evidence of fracture. Abdomen X-Ray 02/23/18 08:00 CONCLUSION: Moderate amount of stool. Physical Exam: GENERAL: awake and alert, not in respiratory distress. SKIN: Warm and dry. No generalized rash HEAD: Atraumatic. Normocephalic. No temporal wasting, or tenderness. EYES: [place] conjunctiva. No petechia or hemorrhage. No scleral icterus. No injection or drainage. EARS, NOSE AND THROAT: Mucous membranes pink and moist. No oral lesions noted. No exudate. No oral thrush. NECK: Trachea midline. Supple and not tender, no meningeal signs CARDIOVASCULAR: Regular rate and rhythm. No murmurs, rubs or gallops heard RESPIRATORY: Clear to auscultation. Breath sounds equal bilaterally. No rales , wheezing or rhonchi ABDOMEN: Soft, nondistended, has tenderness in lower quadrants, no guarding or rebound. Bowel sounds present and normoactive. EXTREMITIES: No clubbing, cyanosis, or edema. No joint effusion, has good ROM. No calf tenderness. Well perfused and warm. NEUROLOGICAL: Awake and alert. No facial asymmetry. Has tremors at rest PSYCHIATRIC: Normal affect, calm and cooperative. LINE: No evidence of infection Assessment and Plan - Plan Impression E coli sepsis due to urosepsis, has R hydro and stones in L kidney, no obstruction Neutropenia, improving - received neupogen Multiple myeloma, on revlimid Parkinsons Chronic back pain Chronic constipation - felt by urologist to be causing obstruction to R Allergy to Levaquin and Sulfa Recommendation Continue IV Cefepime Follow CBC Follow temps Monitor progress Rx constipation US kidneys once she has more stool to reevaluate the hydronephrosis D/W RN
[2018-02-24] MEDS ORDERED: Diatrizoate Meglum/Diatrizoate Sod Liq 120 ML Bottle (for RAD diag) RECTAL ONE (10:00)
[2018-02-24] MEDS: Propranolol LA 60 MG Capsule PO SCH (11:25)
[2018-02-24] MEDS: Acyclovir 200 MG Capsule PO SCH ×2 (11:26→20:54)
[2018-02-24] MEDS: Polyethylene Glycol 3350 17 GM Packet PO SCH (11:26)
[2018-02-24] MEDS: Pantoprazole Sodium 20 MG DR Tablet PO SCH (11:26)
[2018-02-24] MEDS: Gabapentin 100 MG Capsule PO SCH ×2 (11:26→20:54)
[2018-02-24] MEDS: Senna/Docusate Sodium 8.6/50 MG Tablet PO SCH ×2 (11:26→20:54)
--- NOTE | 2018-02-24 12:27 | FL ---
EXAM DATE: 02/24/2018 12:18 PM EST AGE/SEX: 77 years / Female INDICATIONS: Constipation. Patient states she has had that her whole life. CLINICAL DATA: This is the patient's subsequent encounter. Patient reports that signs and symptoms h ave been present for 4 - 6 days and indicates a pain score of 8/10. MEDICAL/SURGICAL HISTORY: . Parkinson's disease. Stroke. Aneurysm, intracranial. Multiple myelo ma None. COMPARISON: [facility], ABDOMEN 1V KUB, 02/23/2018. . FLUORO TIME: 3.5 IMAGE COUNT: 13 RADIATION DOSE: 9433.9 DAP FINDINGS: Preliminary film shows a dextrorotoscoliosis of the lumbar spine with associated multilevel degenerat george disc disease. Impression fracture through what I believe is the L1 vertebral body. Small osseous pins in the region of the superior and inferior pubic rami/pubic symphysis may be related to a prior bladder sling. Under fluoroscopic guidance a Gastrografin enema was performed with free flow of contrast to the ceca l tip. Extensive diverticular disease in the region of the sigmoid colon with scattered diverticula in the more proximal colon. No obvious mass lesion. The appendix is not clearly identified. Post evac uation radiographs are unremarkable. CONCLUSION: 1. Severe diverticular disease in the region of the sigmoid with a few scattered diverticula in the more proximal colon. No plain film evidence of diverticulitis. 2. No obvious mass lesion identified. Electronically signed by: Eladio Loera MD Board Certified Radiologist 02/24/2018 12:25 PM EST
--- NOTE | 2018-02-24 14:26 | P.PNONC ---
Subjective Interval history: Patient comfortable. Left hip still painful. Objective Vital Signs/Intake & Output: Vital Signs 02/23/18 16:00 02/23/18 19:57 02/23/18 23:16 Temperature 98.9 F 98.1 F 97.5 F L Pulse Rate 120 H 72 74 Respiratory Rate 20 19 17 Blood Pressure 114/54 L 99/50 L 116/58 L Pulse Oximetry 98 94 L 95 02/24/18 03:10 02/24/18 08:00 02/24/18 12:00 Temperature 98.8 F 98.5 F 97.8 F Pulse Rate 68 76 83 Respiratory Rate 17 17 17 Blood Pressure 119/58 L 134/65 138/63 Pulse Oximetry 98 97 96 Intake & Output 02/23/18 02/24/18 02/24/18 18:59 06:59 18:59 Intake Total 2280 / 2280 1100 / 1100 Balance 2280 / 2280 1100 / 1100 Weight 63.5 kg Intake: IV 1100 / 1100 1100 / 1100 Potassium Chlor 20 mEq/NACL 0. 1000 / 1000 1000 / 1000 45% Inj 1,000 ML @ 84 mls/hr IV .CONT .[id number] [facility] Rx#:[id number] Maxipime Inj 2,000 MG In NS Inj 100 / 100 100 / 100 100 ML @ 200 mls/hr IV.SIG Q12H [facility] Rx#:[id number] Oral 1180 / 1180 0 / 0 Other: # Voids 5 6 Date of Last Bowel Movement 02/22/18 02/22/18 02/24/18 # Bowel Movements 0 2 Result Diagrams: 02/24/18 03:55 02/24/18 03:55 Laboratory Results: Laboratory Results - last 24 hr 02/24/18 02/24/18 03:55 03:55 WBC 2.7 L RBC 3.11 L Hgb 9.9 L Hct 30.6 L MCV 98.4 MCH 32.0 MCHC 32.5 RDW 17.5 H Plt Count 79 L MPV 8.1 Prelim Diff (Auto) Slide review pending Neut % (Auto) 75.0 H Lymph % (Auto) 14.8 [place] % (Auto) 8.0 Eos % (Auto) 1.7 Baso % (Auto) 0.5 Neut # (Auto) 2.0 Lymph # (Auto) 0.4 L [place] # (Auto) 0.2 Eos # (Auto) 0.0 Baso # (Auto) 0.0 WBC Differential . Diff Scan Auto diff confirmed Differential Comment . Platelet Estimate Low L Platelet Morphology Normal Spherocytes 1+ H Sodium 144 Potassium 4.5 D Chloride 116 H Carbon Dioxide 24.7 Anion Gap 3 L BUN 11 Creatinine 0.60 Estimated GFR Greater than 89 Random Glucose 92 Calcium 7.8 L Culture Results: Microbiology 02/23/18 12:00 Aerobic Blood Culture - Preliminary Blood - Peripheral No growth in 1 day Anaerobic Blood Culture - Preliminary No growth in 1 day 02/23/18 12:15 Aerobic Blood Culture - Preliminary Blood - Peripheral No growth in 1 day Anaerobic Blood Culture - Preliminary No growth in 1 day 02/21/18 14:55 Aerobic Blood Culture - Final Blood - Peripheral Escherichia coli Anaerobic Blood Culture - Final Escherichia coli 02/21/18 14:50 Aerobic Blood Culture - Final Blood - Peripheral Escherichia coli Anaerobic Blood Culture - Final Escherichia coli 02/21/18 16:15 Urine Culture - Final Clean Catch Urine Escherichia coli 02/21/18 16:20 Influenza Types A,B Antigen - Final Nasal Wash Negative for FLU A and B antigen Infection due to influenza A or B cannot be ruled out since the antigen present in the sample may be below the detection limit of the test. Imaging Studies: Impressions Hip X-Ray 02/23/18 00:00 CONCLUSION: No evidence of fracture. Enema w/Water Soluble 02/24/18 00:00 CONCLUSION: 1. Severe diverticular disease in the region of the sigmoid with a few scattered diverticula in the more proximal colon. No plain film evidence of diverticulitis. 2. No obvious mass lesion identified. Medications: Active Medications Generic Name Dose Route Start Last Admin Trade Name Freq PRN Reason Stop Dose Admin Hydrocodone Bitart/Acetaminophen 1 tab 02/22/18 17:41 02/24/18 11:27 [place] 5/325 PO 1 tab Q4HR PRN Administration PAIN SCALE 1 TO 10 Acyclovir 400 mg 02/21/18 21:00 02/24/18 11:26 Zovirax PO 400 mg BID [facility] Administration Aspirin 81 mg 02/22/18 09:00 02/24/18 11:26 Ecotrin PO 81 mg DAILY [facility] Administration Calcium Carbonate 500 mg 02/24/18 09:00 02/24/18 11:25 Tums Chew PO 500 mg DAILY [facility] Administration Escitalopram Oxalate 20 mg 02/22/18 09:00 02/24/18 11:25 Lexapro PO 20 mg DAILY [facility] Administration Filgrastim 300 mcg 02/22/18 18:00 02/23/18 17:37 Neupogen Inj SQ 300 mcg DAILY@1800 [facility] Administration Gabapentin 100 mg 02/21/18 21:00 02/24/18 11:26 Neurontin PO 100 mg BID [facility] Administration Potassium Chloride/Sodium Chloride 1,000 mls @ 84 mls/hr 02/21/18 17:00 02/24 06:37 Potassium Chlor 20 Meq/Nacl 0.45% Inj IV.CONT 84 mls/hr .[id number] [facility] Administration Cefepime HCl 2,000 mg/ Sodium 100 mls @ 200 mls/hr 02/23/18 14:00 02/24/18 01 :53 Chloride IV.SIG Infused Q12H [facility] Infusion Lorazepam 0.5 mg 02/21/18 17:21 02/22/18 21:43 Ativan Inj IV.PUSH 0.5 mg Q6H PRN Administration AGITATION AND/OR HALLUCINATION Pantoprazole Sodium 20 mg 02/22/18 09:00 02/24/18 11:26 Protonix PO 20 mg DAILY [facility] Administration Polyethylene Glycol 17 gm 02/23/18 09:00 02/24/18 11:26 Miralax PO 17 gm DAILY [facility] Administration Pramipexole Dihydrochloride 0.125 mg 02/22/18 09:00 02/24/18 11:25 Mirapex PO 0.125 mg TID [facility] Administration Pravastatin Sodium 40 mg 02/21/18 21:00 02/24/18 11:26 Pravachol PO 40 mg BID [facility] Administration Propranolol HCl 60 mg 02/23/18 12:00 02/24/18 11:25 Inderal La PO 60 mg DAILY [facility] Administration Senna/Docusate Sodium 1 tab 02/22/18 21:00 02/24/18 11:26 Azra-Colace PO 1 tab BID [facility] Administration Sodium Chloride 2 ml 02/21/18 21:00 02/24/18 11:30 Ns Flush IV.FLUSH 2 ml BID [facility] Administration Objective Remarks: GENERAL: Frail but stable. Alert and oriented and converses clearly. SKIN: Warm and dry. HEAD: Normocephalic. EYES: No scleral icterus. No injection or drainage. NECK: Supple, trachea midline. No JVD or lymphadenopathy. LYMPHATIC: No adenopathy. CARDIOVASCULAR: Regular rate and rhythm without murmurs. RESPIRATORY: Breath sounds equal bilaterally. No accessory muscle use. GASTROINTESTINAL: Abdomen soft, non-tender, nondistended. EXTREMITIES: No cyanosis, or edema. MUSCULOSKELETAL: Still with tenderness left hip NEUROLOGICAL: No obvious focal deficit. Awake, alert, and oriented x3. PSYCHIATRIC: Appropriate mood and affect; insight and judgment normal. Assessment/Plan - Plan . 1: She is recovering well from Ecoli sepsis. Her neutrophil count is now adequate. Will discontinue Neupogen. 2: She has left hip pain. The x-ray of the left hip reveals no fracture and no evidence of involvement by myeloma. For the time being will hold off on further evaluation. 3: The patient has myeloma and has been treated with Revlimid. I contacted by phone her medical oncologist Dr. Hinton and reviewed with him her current circumstances. He will resume treatment as an outpatient. It appears that she has done well with the Revlimid.
--- NOTE | 2018-02-24 16:20 | US ---
EXAM DATE: 02/24/2018 4:16 PM EST AGE/SEX: 77 years / Female INDICATIONS: Elevated lab values. CLINICAL DATA: This is the patient's initial encounter. Patient reports that signs and symptoms have been present for 1 day and indicates a pain score of 0/10. MEDICAL/SURGICAL HISTORY: Parkinson's disease. Brain aneurysm. Multiple myeloma. Stroke. None. [place] [facility] [place]. . MEASUREMENTS: Right Kidney:__10.6 x 5.5 x 5.5 cm Left Kidney:__10.3 x 6.0 x 5.0 cm FINDINGS: Right Kidney: Mild pelvocaliectasis of the right renal collecting system Left Kidney: Normal echogenicity and cortical thickness. No mass or hydronephrosis. The multiple nono bstructing renal calculi identified in the collecting system of the left kidney are not identified on the current exam, this may be technical due to limited anatomic detail. Bladder: Decompressed. Not well evaluated. Other: None. CONCLUSION: 1. Mild pelvocaliectasis of the right renal collecting system. 2. Multiple nonobstructing stones identified in the left renal collecting system on the recent CT co uld not be definitively identified on the current exam. This may be technical however due to the limi musa anatomic detail of the left kidney. 3. Urinary bladder is decompressed. Electronically signed by: Eladio Loera MD Board Certified Radiologist 02/24/2018 4:19 PM EST
[2018-02-25 05:13] LABS: Baso % (Auto) 0.5 % (0.0-2.0); Eos # (Auto) 0.1 th/mm3 (0.0-0.4); Eos % (Auto) 1.4 % (0.0-4.0); Hematocrit 31.5 % (35.0-46.0); Hemoglobin 10.5 gm/dL (11.6-15.3); Lymph # (Auto) 0.7 th/mm3 (1.0-4.8); Lymph % (Auto) 17.4 % (9.0-44.0); Mean Corpuscular HGB Conc 33.4 % (32.0-36.0); Mean Corpuscular Volume 95.8 fL (80.0-100.0); Mean Platelet Volume 8.3 fL (7.0-11.0); Mono # (Auto) 0.3 th/mm3 (0.0-0.9); Neut # (Auto) 3.1 th/mm3 (1.8-7.7); Neut % (Auto) 74.7 % (16.0-70.0); Platelet Count 98 th/mm3 (150-450); Red Blood Count 3.28 mil/mm3 (4.00-5.30); Red Cell Distribution Width 17.8 % (11.6-17.2); White Blood Count 4.1 th/mm3 (4.0-11.0)
[2018-02-25] MEDS: KCL 20 mEq/NACL 0.45% Inj 1,000 ML IV.CONT SCH (06:01)
[2018-02-25 08:15] LABS: Dohle Bodies Present; Eosinophils 1 % (0-4); Lymphocytes 18 % (9-44); Monocytes 5 % (0-8); Toxic Granulation 2+
[2018-02-25 08:16] LABS: Ovalocytes 1+; Platelet Morphology Normal (Normal)
--- NOTE | 2018-02-25 08:55 | P.PNONC ---
Subjective Interval history: Afebrile. Patient sitting up in bed, about to eat her breakfast. She reports pain at her left iliac crest times several months. She does have relief with pain medicines. Denies any rashes or trauma. She also reports bilateral lower extremity tenderness and calf cramps. This is well started 1-2 months ago. She is concerned with possible blood clots. She states that she wants to go home. Objective Vital Signs/Intake & Output: Vital Signs 02/24/18 12:00 02/24/18 13:00 02/24/18 16:00 Temperature 97.8 F 98.3 F Pulse Rate 83 46 L Respiratory Rate 17 16 17 Blood Pressure 138/63 132/71 Pulse Oximetry 96 97 02/24/18 21:16 02/24/18 23:42 02/25/18 00:22 Temperature 98.0 F 97.6 F Pulse Rate 68 73 Respiratory Rate 16 18 16 Blood Pressure 105/51 L 130/61 Pulse Oximetry 94 L 99 02/25/18 01:58 02/25/18 06:06 Temperature Pulse Rate Respiratory Rate 17 17 Blood Pressure Pulse Oximetry Intake & Output 02/24/18 02/25/18 02/25/18 18:59 06:59 18:59 Intake Total 1100 / 1100 580 / 580 Balance 1100 / 1100 580 / 580 Weight 64.9 kg Intake: IV 1100 / 1100 100 / 100 Potassium Chlor 20 mEq/NACL 0. 1000 / 1000 45% Inj 1,000 ML @ 84 mls/hr IV .CONT .[id number] [facility] Rx#:[id number] Maxipime Inj 2,000 MG In NS Inj 100 / 100 100 / 100 100 ML @ 200 mls/hr IV.SIG Q12H [facility] Rx#:[id number] Oral 480 / 480 Other: # Voids 4 Date of Last Bowel Movement 02/24/18 02/24/18 # Bowel Movements 0 Result Diagrams: 02/25/18 04:41 02/24/18 03:55 Laboratory Results: Laboratory Results - last 24 hr 02/25/18 04:41 WBC 4.1 RBC 3.28 L Hgb 10.5 L Hct 31.5 L MCV 95.8 MCH 32.0 MCHC 33.4 RDW 17.8 H Plt Count 98 L MPV 8.3 Prelim Diff (Auto) Slide review pending Neut % (Auto) 74.7 H Lymph % (Auto) 17.4 [place] % (Auto) 6.0 Eos % (Auto) 1.4 Baso % (Auto) 0.5 Neut # (Auto) 3.1 Lymph # (Auto) 0.7 L [place] # (Auto) 0.3 Eos # (Auto) 0.1 Baso # (Auto) 0.0 WBC Differential Manual diff final Seg Neuts % (Manual) 55 Band Neuts % (Manual) 19 H Lymphocytes % (Manual) 18 Monocytes % (Manual) 5 Eosinophils % (Manual) 1 Basophils % (Manual) 2 Abs Neuts (Manual) 3.0 Differential Comment . Toxic Granulation 2+ H Dohle Bodies Present H Platelet Estimate Low L Platelet Morphology Normal Ovalocytes 1+ H Culture Results: Microbiology 02/23/18 12:00 Aerobic Blood Culture - Preliminary Blood - Peripheral No growth in 1 day Anaerobic Blood Culture - Preliminary No growth in 1 day 02/23/18 12:15 Aerobic Blood Culture - Preliminary Blood - Peripheral No growth in 1 day Anaerobic Blood Culture - Preliminary No growth in 1 day 02/21/18 14:55 Aerobic Blood Culture - Final Blood - Peripheral Escherichia coli Anaerobic Blood Culture - Final Escherichia coli 02/21/18 14:50 Aerobic Blood Culture - Final Blood - Peripheral Escherichia coli Anaerobic Blood Culture - Final Escherichia coli 02/21/18 16:15 Urine Culture - Final Clean Catch Urine Escherichia coli Imaging Studies: Impressions Abdomen/Bladder Ultrasound 02/24/18 00:00 CONCLUSION: 1. Mild pelvocaliectasis of the right renal collecting system. 2. Multiple nonobstructing stones identified in the left renal collecting system on the recent CT could not be definitively identified on the current exam. This may be technical however due to the limited anatomic detail of the left kidney. 3. Urinary bladder is decompressed. Enema w/Water Soluble 02/24/18 00:00 CONCLUSION: 1. Severe diverticular disease in the region of the sigmoid with a few scattered diverticula in the more proximal colon. No plain film evidence of diverticulitis. 2. No obvious mass lesion identified. Medications: Active Medications Generic Name Dose Route Start Last Admin Trade Name Freq PRN Reason Stop Dose Admin Hydrocodone Bitart/Acetaminophen 1 tab 02/22/18 17:41 02/24/18 23:50 [place] 5/325 PO 1 tab Q4HR PRN Administration PAIN SCALE 1 TO 10 Acyclovir 400 mg 02/21/18 21:00 02/24/18 20:54 Zovirax PO 400 mg BID [facility] Administration Aspirin 81 mg 02/22/18 09:00 02/24/18 11:26 Ecotrin PO 81 mg DAILY [facility] Administration Calcium Carbonate 500 mg 02/24/18 09:00 02/24/18 11:25 Tums Chew PO 500 mg DAILY [facility] Administration Escitalopram Oxalate 20 mg 02/22/18 09:00 02/24/18 11:25 Lexapro PO 20 mg DAILY [facility] Administration Gabapentin 100 mg 02/21/18 21:00 02/24/18 20:54 Neurontin PO 100 mg BID [facility] Administration Potassium Chloride/Sodium Chloride 1,000 mls @ 84 mls/hr 02/21/18 17:00 02/25 06:01 Potassium Chlor 20 Meq/Nacl 0.45% Inj IV.CONT Not Given .[id number] [facility] Cefepime HCl 2,000 mg/ Sodium 100 mls @ 200 mls/hr 02/23/18 14:00 02/25/18 02 :17 Chloride IV.SIG Infused Q12H [facility] Infusion Lorazepam 0.5 mg 02/21/18 17:21 02/24/18 23:50 Ativan Inj IV.PUSH 0.5 mg Q6H PRN Administration AGITATION AND/OR HALLUCINATION Pantoprazole Sodium 20 mg 02/22/18 09:00 02/24/18 11:26 Protonix PO 20 mg DAILY [facility] Administration Polyethylene Glycol 17 gm 02/23/18 09:00 02/24/18 11:26 Miralax PO 17 gm DAILY [facility] Administration Pramipexole Dihydrochloride 0.125 mg 02/22/18 09:00 02/24/18 17:50 Mirapex PO 0.125 mg TID [facility] Administration Pravastatin Sodium 40 mg 02/21/18 21:00 02/24/18 20:54 Pravachol PO 40 mg BID [facility] Administration Propranolol HCl 60 mg 02/23/18 12:00 02/24/18 11:25 Inderal La PO 60 mg DAILY [facility] Administration Senna/Docusate Sodium 1 tab 02/22/18 21:00 02/24/18 20:54 Azra-Colace PO 1 tab BID [facility] Administration Sodium Chloride 2 ml 02/21/18 21:00 02/24/18 20:45 Ns Flush IV.FLUSH Not Given BID [facility] Objective Remarks: GENERAL: Well-nourished, well-developed elderly female patient, in no acute distress. SKIN: Warm and dry. HEAD: Normocephalic. EYES: No scleral icterus. No injection or drainage. NECK: Supple, trachea midline. CARDIOVASCULAR: Regular rate and rhythm without murmurs. RESPIRATORY: Breath sounds clear, equal bilaterally. No accessory muscle use. GASTROINTESTINAL: Abdomen soft, non-tender, nondistended. EXTREMITIES: No cyanosis, or edema. Tenderness to left iliac crest. Tenderness to bilateral lower extremities. MUSCULOSKELETAL: Adequate muscle tone. NEUROLOGICAL: No obvious focal deficit. Awake, alert, and oriented x3. PSYCHIATRIC: Appropriate mood and affect; insight and judgment normal. Assessment/Plan - Plan Ms. Webber is a 77-year-old woman, with multiple myeloma. She is currently under the care of Dr. Hinton, receiving Revlimid 10 mg for 21 of 28 days. She is currently hospitalized for gram-negative sepsis. Plan: 1. E-coli sepsis. Her neutrophil count has recovered. 2. Pain, left hip and bilateral lower extremities. Hip tenderness is isolated to lateral iliac crest area, left hip reveals no fracture and no evidence of involvement by myeloma. We will continue to monitor. Will order LE ultrasound to assure there are no blood clots as the patient appears to have limited mobility. 3. Myeloma, treated with Revlimid, under the care of Dr. Hinton. She will follow-up with her oncologist upon discharge.
[2018-02-25] MEDS: Propranolol LA 60 MG Capsule PO SCH (09:07)
[2018-02-25] MEDS: Gabapentin 100 MG Capsule PO SCH (09:07)
[2018-02-25] MEDS: Senna/Docusate Sodium 8.6/50 MG Tablet PO SCH (09:07)
[2018-02-25] MEDS: Acyclovir 200 MG Capsule PO SCH (09:08)
[2018-02-25] MEDS: Polyethylene Glycol 3350 17 GM Packet PO SCH (09:09)
[2018-02-25] MEDS: Pantoprazole Sodium 20 MG DR Tablet PO SCH (09:09)
--- NOTE | 2018-02-25 09:40 | P.PNIM ---
Subjective Interval history: Patient c/o of left hip pain which has been chronic x several months. Patient reports that her positioning during Gastrografin enema seems to have exacerbated the left hip pain. Physical Exam Vital signs: Last Vital Signs Temp 97.6 F 02/24/18 23:42 Pulse 73 02/24/18 23:42 Resp 17 02/25/18 06:06 BP 130/61 02/24/18 23:42 Pulse Ox 99 02/24/18 23:42 Narrative: GENERAL: This is a frail patient who appears older than stated age CARDIOVASCULAR: Regular rate and rhythm RESPIRATORY: Clear to auscultation. Breath sounds equal bilaterally. GASTROINTESTINAL: Abdomen soft, non-tender, nondistended. Normal active bowel sounds MUSCULOSKELETAL: Extremities without clubbing, cyanosis, or edema. NEURO: Alert & Oriented x4 to person, place, time, situation. Moves all ext x4 Results Labs CBC & Chem 7: 02/25/18 04:41 02/24/18 03:55 Assessment and Plan Plan This is a 77 year old female patient with a past medical history which includes : normochromic and normocytic anemia, CVA, Parkinson's disease, hyperlipidemia, gastroparesis, diverticulitis, GERD, OA, B12 deficiency, depression, osteoporosis, chronic pain syndrome received steroid injections to her lumbar spine through pain management and Multiple myeloma follows with Dr. Hinton. Patient is currently on Revlimid 10 mg daily 21 days on and 7 days off per patient and caregiver last dose of Revlimid was Saturday02/18/18. Patient currently lives alone, and a member of her holiness checks on her and assist with care. Patient presents to the ER today with weakness and headache. Weakness likely related to UTI, bacteremia and current chemotherapy UTI Bacteremia UA reviewed consistent with UTI Urine culture growing E coli Blood culture 05/22 growing E. coli repeat blood cultures 02/23/18 no growth x 1 day ID consulted and also following, appreciate input ID started Cefepime (02/22/18 - present), await further repeat blood culture results and final ID abx recommendations plan to DC to SNF at time of DC Headache- appears to be more pain from left TMJ joint Patient had had TMJ surgery in the past. Recommended to patient and caregiver that she see dentist/oral maxillofacial surgery after DC Head CT 02/21/[address] scan of the brain compared to 2016. 2. Stable postsurgical changes with aneurysm clipping in the right mid parietal lobe. 3. No focal or acute intracranial hemorrhage. Given patient's hx of aneursym with clipping MRI/MRI ordered elizabeth reviewed Head MRA 02/22/18 Unremarkable study except for evidence for prior aneurysm clipping. Head MRI 02/22/18 Chronic small vessel ischemic and atrophic changes, postsurgical and aneurysm clipping right mid parietal not significantly changed since 2016 hydrocodone as needed for pain Debrox bilateral ears Right hydronephrosis Abdomen/Pelvis CT 02/21/18 1. There is moderate hydronephrosis in the right kidney and previously seen right renal stones are no longer seen. Numerous stones in the left kidney. 2. Compression fracture of L1 not changed since 08/2017, however not present on 07/2016. Consult urology, appreciate input Urology feels that large stool ball and gas are displacing bladder and right ureter soap suds enemas x 2 given 02/22/18 -> patient and caregiver report patient had large BM after enemas continue bowel regiment and miralax daily MOM 02/23/18 KUB 02/23/18 showed moderate amount of stool therapeutic Gastrografin enema 02/24/18 Enema w/Water Soluble 02/24/18 1. Severe diverticular disease in the region of the sigmoid with a few scattered diverticula in the more proximal colon. No plain film evidence of diverticulitis. 2. No obvious mass lesion identified. Abdomen/Bladder Ultrasound 02/24/18 1. Mild pelvocaliectasis of the right renal collecting system. 2. Multiple nonobstructing stones identified in the left renal collecting system on the recent CT could not be definitively identified on the current exam. This may be technical however due to the limited anatomic detail of the left kidney. 3. Urinary bladder is decompressed. Patient follows with Dr. Cole as an outpatient Multiple myeloma pancytopenia follows with Dr. Hinton Patient has completed 8 cycles of induction RVD and then was started on Revlimid 10 mg daily 21 days on and 7 days off last dose of Revlimid was Saturday02/18/18 Continue patient's home acyclovir 400 mg PO BID due to immunosuppression consult hematology/oncology, appreciate assistance neutrophil count of 800. Given that she has sepsis and the platelet count has fallen over the past 24 hours, Oncology started Neupogen to help the neutrophil count recover. CBC and platelet count daily. Oncology plans to stop Neupogen once the neutrophil count is greater than 1000. Case discussed with Dr. Diehl 02/23/18 Left hip pain Hip X-Ray 02/23/18 No evidence of fracture. Per patient left hip pain is chronic continue home [place] as needed for pain BLE US ordered by oncology to R/O DVT CVA Continue aspirin 81 mg PO daily Depression Continue home Lexapro Parkinson's disease Continue home pramipexole Hyperlipidemia Continue home lovastatin 40 mg PO daily GERD Continue home Omeprazole DVT prophylaxis with SCDs Progress Note: Quality VTE Deep Vein Thrombosis/Pulmonary Embolism Present on Admission: No
--- NOTE | 2018-02-25 10:46 | US ---
EXAM DATE: 02/25/2018 10:40 AM EST AGE/SEX: 77 years / Female INDICATIONS: Pain. CLINICAL DATA: This is the patient's initial encounter. Patient reports that signs and symptoms have been present for 1 day and indicates a pain score of 7/10. MEDICAL/SURGICAL HISTORY: . Parkinson's disease. Brain aneurysm. Multiple myeloma. Stroke. Non e. COMPARISON: [facility], US LEG VENOUS DOPPLER, RIGHT, 09/01/2015. . TECHNIQUE: Venous ultrasound of both lower extremities was performed from the inguinal ligament to t he proximal calf. Real-time, color Doppler and spectral tracing, compression and augmentation techni ques were used. FINDINGS: Right Leg: Normal compression of the deep venous system from the inguinal region to the proximal violeta f. No echogenic clot is seen. Normal response of the venous system to augmentation and respiration. Left Leg: Normal compression of the deep venous system from the inguinal region to the proximal calf . No echogenic clot is seen. Normal response of the venous system to augmentation and respiration. Other: None. CONCLUSION: 1. The study is negative for bilateral lower extremity deep venous thrombosis. Electronically signed by: Romero Sarabia MD Board Certified Radiologist 02/25/2018 10:45 AM EST
--- NOTE | 2018-02-25 11:04 | P.DS ---
DS: Providers Date of admission: 02/22/18 13:57 Primary care physician: UNKNOWN Consults: 02/21/18 17:00 Consult to Urology Routine Consulting Provider: Antoni Giraldo Head Doffer:: Antoni Giraldo Reason for Consultation: hydronephrosis Notified:: Service Spoke with:: EILEEN Date Notified:: 02/21/18 Time Notified:: 17:08 Ordering Provider: ENRIQUE 02/22/18 10:16 Consult to Infectious Diseases Routine Consulting Provider: Susan Lyons Reason for Consultation: positive blood cultures patient with Multiple Myeloma Notified:: Service Spoke with:: WILMAR Date Notified:: 02/22/18 Time Notified:: 10:21 Ordering Provider: GREGG 02/22/18 12:59 Consult to Oncology Routine Consulting Provider: Gerard Diehl Reason for Consultation: Multiple myeloma Notified:: Service Spoke with:: RADHA Date Notified:: 02/22/18 Time Notified:: 14:54 Ordering Provider: GREGG Brief History from admission: This is a 77 year old female patient with a past medical history which includes: normochromic and normocytic anemia, CVA, Parkinson's disease, hyperlipidemia, gastroparesis, diverticulitis, GERD, OA, B12 deficiency, depression, osteoporosis, chronic pain syndrome received steroid injections to her lumbar spine through pain management and Multiple myeloma follows with Dr. Hinton. Patient is currently on Revlimid 10 mg daily 21 days on and 7 days off per patient and caregiver last dose of Revlimid was Saturday02/18/18. Patient currently lives alone, and a member of her rom[employer] catholic checks on her and assist with care. Patient presents to the ER today with weakness and headache. Patient states she is been feeling this way for at least 24 hours. Per EMS patient was laying on her bed, she was unable to get up on her own. She was able to stand and walk a few steps with them but they were holding her up. They stated that on their arrival she was clammy and reporting chills, her temp at that time was 99.2. Patient is currently reporting a headache to the left temporal area that is been intermittent, she states the pain gets to be a 10 out of 10 and is throbbing. This is been ongoing for several days. She denies any falls. She states that she has been having to hold onto the lizarraga when she gets up. She normally ambulates without difficulty. Patient vomited when EMS stood her up, she reported feeling dizzy. She does report dry heaving a few times over the last few days. Patient has taken tramadol and Excedrin for the headache, this alleviates her symptoms. She has been tolerating food and fluids, she denies any chest pain, shortness of breath, dysuria, fevers. PMH: normochromic and normocytic anemia, CVA, Parkinson's disease, hyperlipidemia, gastroparesis, diverticulitis, GERD, OA, B12 deficiency, depression, osteoporosis, chronic pain syndrome and Multiple myeloma follows with Dr. Hinton PSxH: cerebral hemorrhage followed by craniotomy and aneurysmal clipping Nov 2013, Cholecystectomy, appendectomy, breast biopsy, TAHBSO, right knee replacement, tubal ligation, cystocele repair, cataract surgery and colonoscopy Social history: currently living alone Denies ETOH use, tobacco use or illicit drug use FMH: reviewed and noncontributory DS: Summary This is a 77 year old female patient with a past medical history which includes : normochromic and normocytic anemia, CVA, Parkinson's disease, hyperlipidemia, gastroparesis, diverticulitis, GERD, OA, B12 deficiency, depression, osteoporosis, chronic pain syndrome received steroid injections to her lumbar spine through pain management and Multiple myeloma follows with Dr. Hinton. Patient is currently on Revlimid 10 mg daily 21 days on and 7 days off per patient and caregiver last dose of Revlimid was Saturday02/18/18. Patient currently lives alone, and a member of her roman catholic checks on her and assist with care. Patient presents to the ER today with weakness and headache. Weakness likely related to UTI, bacteremia and current chemotherapy UTI Bacteremia UA reviewed consistent with UTI Urine culture growing E coli Blood culture 05/22 growing E. coli repeat blood cultures 02/23/18 no growth x 2 days ID consulted and also following, appreciate input ID started Cefepime (02/22/18 - 02/25/18) Levaquin 750mg PO daily (02/25/18) Dr. Guzman discussed case with ID Dr. Lyons. ID cleared patient for DC on Levaquin 750mg PO daily x 10 additional days. Headache- appears to be more pain from left TMJ joint Patient had had TMJ surgery in the past. Recommended to patient and caregiver that she see dentist/oral maxillofacial surgery after DC Head CT 02/21/[address] scan of the brain compared to 2016. 2. Stable postsurgical changes with aneurysm clipping in the right mid parietal lobe. 3. No focal or acute intracranial hemorrhage. Given patient's hx of aneursym with clipping MRI/MRI ordered elizabeth reviewed Head MRA 02/22/18 Unremarkable study except for evidence for prior aneurysm clipping. Head MRI 02/22/18 Chronic small vessel ischemic and atrophic changes, postsurgical and aneurysm clipping right mid parietal not significantly changed since 2016 hydrocodone as needed for pain Debrox bilateral ears Right hydronephrosis Abdomen/Pelvis CT 02/21/18 1. There is moderate hydronephrosis in the right kidney and previously seen right renal stones are no longer seen. Numerous stones in the left kidney. 2. Compression fracture of L1 not changed since 08/2017, however not present on 07/2016. Consult urology, appreciate input Urology feels that large stool ball and gas are displacing bladder and right ureter soap suds enemas x 2 given 02/22/18 -> patient and caregiver report patient had large BM after enemas continue bowel regiment and miralax daily MOM 02/23/18 KUB 02/23/18 showed moderate amount of stool therapeutic Gastrografin enema 02/24/18 Enema w/Water Soluble 02/24/18 1. Severe diverticular disease in the region of the sigmoid with a few scattered diverticula in the more proximal colon. No plain film evidence of diverticulitis. 2. No obvious mass lesion identified. Abdomen/Bladder Ultrasound 02/24/18 1. Mild pelvocaliectasis of the right renal collecting system. 2. Multiple nonobstructing stones identified in the left renal collecting system on the recent CT could not be definitively identified on the current exam. This may be technical however due to the limited anatomic detail of the left kidney. 3. Urinary bladder is decompressed. Patient follows with Dr. Cole as an outpatient Multiple myeloma pancytopenia follows with Dr. Hinton Patient has completed 8 cycles of induction RVD and then was started on Revlimid 10 mg daily 21 days on and 7 days off last dose of Revlimid was Saturday02/18/18 Continue patient's home acyclovir 400 mg PO BID due to immunosuppression consult hematology/oncology, appreciate assistance neutrophil count of 800. Given that she has sepsis and the platelet count has fallen over the past 24 hours, Oncology started Neupogen to help the neutrophil count recover. CBC and platelet count daily. Oncology plans to stop Neupogen once the neutrophil count is greater than 1000. Case discussed with Dr. Diehl 02/23/18 Left hip pain Hip X-Ray 02/23/18 No evidence of fracture. Per patient left hip pain is chronic continue home Bella[place] as needed for pain BLE US ordered by oncology to R/O DVT, negative for DVT bilaterally CVA Continue aspirin 81 mg PO daily Depression Continue home Lexapro Parkinson's disease Continue home pramipexole Hyperlipidemia Continue home lovastatin 40 mg PO daily GERD Continue home Omeprazole DVT prophylaxis with SCDs Time Spent with Patient Total time spent providing and/or coordinating discharge services: Quality: VTE Deep Vein Thrombosis/Pulmonary Embolism Present on Admission: No Exam Narrative Exam Narrative: GENERAL: This is a frail patient who appears older than stated age CARDIOVASCULAR: Regular rate and rhythm RESPIRATORY: Clear to auscultation. Breath sounds equal bilaterally. GASTROINTESTINAL: Abdomen soft, non-tender, nondistended. Normal active bowel sounds MUSCULOSKELETAL: Extremities without clubbing, cyanosis, or edema. NEURO: Alert & Oriented x4 to person, place, time, situation. Moves all ext x4 Results Labs on day of discharge: Labs from last 24 hours 02/25/18 04:41 WBC 4.1 RBC 3.28 L Hgb 10.5 L Hct 31.5 L MCV 95.8 MCH 32.0 MCHC 33.4 RDW 17.8 H Plt Count 98 L MPV 8.3 Prelim Diff (Auto) Slide review pending Neut % (Auto) 74.7 H Lymph % (Auto) 17.4 Mower % (Auto) 6.0 Eos % (Auto) 1.4 Baso % (Auto) 0.5 Neut # (Auto) 3.1 Lymph # (Auto) 0.7 L Mower # (Auto) 0.3 Eos # (Auto) 0.1 Baso # (Auto) 0.0 WBC Differential Manual diff final Seg Neuts % (Manual) 55 Band Neuts % (Manual) 19 H Lymphocytes % (Manual) 18 Monocytes % (Manual) 5 Eosinophils % (Manual) 1 Basophils % (Manual) 2 Abs Neuts (Manual) 3.0 Differential Comment . Toxic Granulation 2+ H Dohle Bodies Present H Platelet Estimate Low L Platelet Morphology Normal Ovalocytes 1+ H Preliminary micro results at discharge 02/23/18 12:00 Aerobic Blood Culture - Preliminary Blood - Peripheral No growth in 2 days Anaerobic Blood Culture - Preliminary No growth in 2 days 02/23/18 12:15 Aerobic Blood Culture - Preliminary Blood - Peripheral No growth in 2 days Anaerobic Blood Culture - Preliminary No growth in 2 days Impressions ITS Impressions Abdomen/Pelvis CT 02/21/18 14:43 CONCLUSION: 1. There is moderate hydronephrosis in the right kidney and previously seen right renal stones are no longer seen. Numerous stones in the left kidney. 2. Compression fracture of L1 not changed since 08/2017, however not present on 07/2016. Chest X-Ray 02/21/18 14:43 CONCLUSION: Negative for acute process Head CT 02/21/18 14:43 CONCLUSION: 1. Stable CT scan of the brain compared to 2016. 2. Stable postsurgical changes with aneurysm clipping in the right mid parietal lobe. 3. No focal or acute intracranial hemorrhage. . Head MRI 02/22/18 00:00 CONCLUSION: Chronic small vessel ischemic and atrophic changes, postsurgical and aneurysm clipping right mid parietal not significantly changed since 2016 . Head MRA 02/22/18 00:00 CONCLUSION: 1. Unremarkable study except for evidence for prior aneurysm clipping. Hip X-Ray 02/23/18 00:00 CONCLUSION: No evidence of fracture. Abdomen X-Ray 02/23/18 08:00 CONCLUSION: Moderate amount of stool. Abdomen/Bladder Ultrasound 02/24/18 00:00 CONCLUSION: 1. Mild pelvocaliectasis of the right renal collecting system. 2. Multiple nonobstructing stones identified in the left renal collecting system on the recent CT could not be definitively identified on the current exam. This may be technical however due to the limited anatomic detail of the left kidney. 3. Urinary bladder is decompressed. Enema w/Water Soluble 02/24/18 00:00 CONCLUSION: 1. Severe diverticular disease in the region of the sigmoid with a few scattered diverticula in the more proximal colon. No plain film evidence of diverticulitis. 2. No obvious mass lesion identified. Venous Doppler Study 02/25/18 00:00 CONCLUSION: 1. The study is negative for bilateral lower extremity deep venous thrombosis. Discharge Plan Discharge Disposition Patient Disposition: 03 Discharge to SNF Discharge Condition Condition: Stable Discharge Order Discharge Orders: Discharge Order (Routine); Ordered 02/25/18 Ordered By: Isaura Che Discharge Details Anticipated Discharge Date: 02/25/18 Physicians Team ED Provider: Belinda Camargo ED Midlevel Provider: Mitali Noe Primary Care Provider: UNKNOWN, Attending Provider: Jensen Bridges Other Providers: Antoni Giraldo ; Susan Lyons ; Gerard Diehl Rxs /Orders / Referrals /Forms Prescriptions: New lorazepam 0.5 mg Tablet 0.5 mg PO DAILY Qty: 10 RF: 0 hydrocodone-acetaminophen [Bella[place]] 5-325 mg Tablet 1 tab PO Q6H PRN (Reason: Pain) Qty: 12 RF: 0 levofloxacin [Levaquin] 750 mg tablet 750 mg PO DAILY 10 Days Qty: 10 RF: 0 polyethylene glycol 3350 [Miralax] 17 gram powder in packet 17 g PO DAILY Qty: 30 RF: 0 sennosides-docusate sodium [Senna Plus] 8.6-50 mg Tablet 1 tab PO BID 30 Days Qty: 60 RF: 0 Continue pramipexole 0.125 mg Tablet 0.125 mg PO TID RF: 0 lovastatin 40 mg Tablet 40 mg PO BID RF: 0 prochlorperazine maleate 10 mg Tablet 10 mg PO TID RF: 0 acyclovir 400 mg Tablet 400 mg PO BID RF: 0 aspirin [Adult Low Dose Aspirin] 81 mg Tablet,Delayed Release (Dr/Ec) 81 mg PO DAILY RF: 0 calcium carbonate [Calcium 600] 600 mg calcium (1,500 mg) Tablet 600 mg PO DAILY RF: 0 potassium chloride [Klor-Con M20] 20 mEq Tablet,Er Particles/Crystals 20 meq PO DAILY RF: 0 estradiol 1 mg Tablet 1 mg PO DAILY RF: 0 propranolol [Inderal LA] 80 mg Capsule,Extended Release 24 Hr 40 mg PO DAILY RF: 0 furosemide 20 mg Tablet 20 mg PO DAILY RF: 0 cyanocobalamin (vitamin B-12) [Vitamin B-12] 2,000 mcg Tablet Extended Release 2,000 mcg PO DAILY RF: 0 gabapentin 100 mg Capsule 100 mg PO BID RF: 0 escitalopram oxalate [Lexapro] 20 mg Tablet 20 mg PO DAILY RF: 0 omeprazole 20 mg Tablet,Delayed Release (Dr/Ec) 20 mg PO DAILY RF: 0 Discontinued lactulose 10 gram/15 mL Solution 10 g PO QID RF: 0 tramadol 50 mg Tablet 50 mg PO TID PRN (Reason: Pain) RF: 0 lenalidomide [Revlimid] 5 mg Capsule 5 mg PO DAILY RF: 0 Referrals: Tosin Cuellar MD [Physician] - See Instructions (Follow up with PCP in 1 week) UNKNOWN, [Primary Care Provider] - See Instructions (Follow up with Dr. iHnton for follow up and to address Revlimid) Feng Cole MD [Physician] - See Instructions (follow up in 10 - 14 days for evaluation and follow up regarding right hydronephrosis ) Status ED Status: Left Department
[2018-02-25] MEDS ORDERED: levoFLOXacin 750 MG Tablet PO SCH (11:30)
[2018-02-25 12:37] VITALS: BP 121/55; PULSE 68; TEMP 97.6; O2SAT 95
[2018-02-25 15:06] VITALS: RESP 16
== END 2018-02-25 15:52 | DRG 871 ==
LOC: NEPE 14:01 → NEDA 14:01 → N06 19:04
PROVIDERS: ADMIT Hospitalist; ATTEND Hospitalist
CPT/HCPCS: 70450; 70544; 70553; 71010; 71045; 73502; 74000; 74018; 74177; 74270; 76775; 80048; 80053; 81001; 82040; 82550; 83605; 83690; 83735; 84484; 85025; 85610; 85730; 87040; 87077; 87086; 87149; 87186; 87205; 87275; 87276; 87804; 93005; 93970; 97110; 97116; 97162; 97530; A9585; J0131; J0692; J0696; J1440; J1442; J2060; J2185; J7030; Q9963; Q9967